=== PATIENT | female | born 1995 | race Two or more races ===

== ENCOUNTER 2020-02-14 10:43 | Outpatient (REF) | payer OTHER, SELFPAY ==
[2020-02-15 08:48] LABS: CT PCR NOT DETECTED (Not Detect.)
[2020-02-15 08:49] LABS: NG PCR NOT DETECTED (Not Detect.)
== END 2020-02-14 10:44 | disposition home or self-care (01) ==
LOC: HO.LNP 10:43
PROVIDERS: PCP Internal Medicine; Referring Provider Internal Medicine; Visit Provider Advanced Practice Midwife
DX: O34.219 Maternal care for unspecified type scar from previous cesarean delivery (principal); O99.211 Obesity complicating pregnancy, first trimester; E66.9 Obesity, unspecified; Z3A.13 13 weeks gestation of pregnancy
CPT/HCPCS: 87491; 87591

== ENCOUNTER 2020-03-10 16:17 | Emergency (ER) | payer OTHER, SELFPAY ==
[2020-03-10 17:14] VITALS: BP 135/81; PULSE 90; RESP 16; TEMP 36.7; O2SAT 99; BMI 41.5
--- NOTE | 2020-03-10 17:22 | US_ITS ---
EXAMINATION: US OB LIMITED CLINICAL INFORMATION: Pelvic pain, pressure. Cramping. 17 weeks . COMPARISON: Most recent pelvic ultrasound dated 02/03/2020. TECHNIQUE: Transabdominal images were obtained. FINDINGS: Single intrauterine gestation identified. Normal movement is identified. The heart rate is 160 bpm. The placenta is anterior with no evidence of placental abruption. The ovaries appear within normal limits. The kidneys are unremarkable without hydronephrosis or nephrolithiasis. US/US OB limited IMPRESSION: Single intrauterine gestation with a heart rate of 160 bpm. No evidence of placental detachment.
--- NOTE | 2020-03-10 17:53 | ED_ITS ---
HPI - Abdominal Pain General Chief Complaint: Abdominal Pain Stated Complaint: abd pain Time Seen by Provider: 03/10/20 17:08 Source: patient Mode of arrival: ambulatory History of Present Illness HPI narrative: 24-year-old female at 17 weeks gestation presenting to the ED complaining of lower abdominal cramping radiating to bilateral low back times today. Reports nausea/vomiting throughout . Denies fever, chills, dysuria / hematuria, vaginal bleeding or discharge MD elicited complaint: abdominal pain Related Data Home Medications Medication Instructions Recorded Confirmed vitamin 1 tab PO DAILY 02/14/20 no.76-iron,carbonyl 29 mg iron-folic acid 1 mg tablet Allergies Allergy/AdvReac Type Severity Reaction Status Date / Time No Known Allergies Allergy Verified 02/14/20 11:06 Review of Systems Review of Systems Constitutional: No Weight loss, No Fever, No Chills Cardiovascular: No Chest Pain, No SOB Respiratory: No Cough, No Sputum,No Dyspnea Gastrointestinal: +Nausea, +Vomiting, No Diarrhea, No Constipation, +Abdominal pain Genitourinary: No irregular bleeding, No Dysuria, No Urinary Frequency, No Hematuria, No Flank Pain, No Urinary Flow Changes, No Hesitancy Musculoskeletal: No joint pain, No Myalgias, No Joint Swelling Skin: No Skin Lesions, No rash Yes all other systems are reviewed and are negative Physical Exam Vital Signs: Vital Signs: Vital Signs Temp Pulse Resp BP Pulse Ox 03/10/20 19:47 98.1 F 79 16 109/66 99 03/10/20 17:14 98.1 F 90 16 135/81 99 Body Mass Index 41.5 Const: General: cooperative and healthy appearing Orientation/consciousness: patient oriented x3 Limitations: no limitations HENMT: Head: Yes normal to inspection Ears: hearing grossly normal bilaterally General nose exam: Normal external nose present Face and sinus: Yes normal facial exam Eyes: General: appearance normal, both eyes and all related structures EOM: EOMs intact bilaterally Neck: Neck: Yes normal visual inspection Resp: Effort & Inspection: normal respiratory effort GI: Inspection: Yes normal to inspection Palpation (GI): Soft to palpation, Tenderness to palpation present (GI) (lower abdomen > L lower/suprapubic region), no guarding and not rigid : General: Yes no CVA tenderness Back/Spine/Pelvis: Back: no CVA tenderness Skin: Rashes: no rashes Wounds: no wounds Neuro: General: patient oriented x3 Gait exam (Neuro): Normal gait present Extrem: General: Yes normal to inspection Course Course Course Narrative: -1857--labs unremarkable, HCG -- ultrasound showing single intrauterine gestation with heart rate 160. No evidence of placental detachment - UA with 40 ketones, not infected. Discussed with patient need for hydration at home labs/imaging results discussed.Worrisome signs and symptoms And strict return precautions doctor about. Including follow-up with OBGYN/ calling the morning. Patient verbalized understanding feel safe for discharge home MDM - Abdominal Pain MDM Narrative Medical decision making narrative: 24-year-old female at 17 weeks gestation presenting to the ED complaining of lower abdominal cramping radiating to bilateral low back x today. On exam VSS, NAD/ nontoxic appearing, abdomen soft with lower abdominal ttp. Concern for pain / related complication. low concern for ovarian torsion, appendicitis, or diverticulitis with pain being bilateral. Rule out infectious etiology including UTI. Low concern for renal stone/PID plan: Labs, UA, ultrasound, reassess Lab Data Result diagrams: 03/10/20 17:57 03/10/20 17:57 Labs: Lab Results 03/10/20 03/10/20 03/10/20 Range/Units 17:57 17:57 17:57 WBC 9.6 (4.8-10.8) X10*3/uL RBC 3.77 L (4.20-5.50) X10*6/uL Hgb 11.1 L (12.0-16.0) g/dl Hct 33.3 L (37-47) % MCV 88.3 (80-98) fL MCH 29.4 (27.0-33.0) pg MCHC 33.3 (31.0-35.0) g/dl RDW 15.3 (11.0-16.0) % Plt Count 229 (160-400) X10*3/uL MPV 10.9 (9.4-12.3) fL Immature Gran % (Auto) 0.4 (0.0-0.4) % Neut % (Auto) 75.3 H (45-73) % Lymph % (Auto) 14.6 L (20-40) % Taney % (Auto) 8.0 (2-11) % Eos % (Auto) 1.4 (0-4) % Baso % (Auto) 0.3 (0-2) % Lymph # (Auto) 1.4 (1.2-4.9) X10*3/uL Taney # (Auto) 0.8 (0.1-1.2) X10*3/uL Eos # (Auto) 0.1 (0.0-0.4) X10*3/uL Baso # (Auto) 0.0 (0.0-0.2) X10*3/uL Abs Immat Gran (auto) 0.04 H (0.00-0.03) X10*3/uL Absolute Neuts (auto) 7.2 (2.0-8.3) X10*3/uL Absolute Nucleated RBC 0.000 (0.0-0.012) X10*3/uL Nucleated RBC % (auto) 0.0 (0.0-0.2) /100WBC Hold Blue Top SEE NOTE Sodium 135 (135-145) mmol/L Potassium 4.0 (3.3-5.1) mmol/l Chloride 104 (96-108) mmol/L Carbon Dioxide 23 (22-29) mmol/L Anion Gap 12 (12-20) BUN 6 L (9-16) mg/dL Creatinine 0.64 (0.5-1.4) mg/dL Estim Creat Clear Calc 167.3 Estimated GFR > 60 Random Glucose 95 (60-115) mg/dL Calcium 8.3 L (8.4-10.2) mg/dL Total Bilirubin 0.5 (0.0-1.0) mg/dL Direct Bilirubin 0.2 (0.0-0.5) mg/dL AST 20 (5-31) U/L ALT 20 (0-31) U/L Alkaline Phosphatase 40 (39-117) U/L Total Protein 6.2 L (6.5-8.0) g/dL Albumin 3.5 (3.5-5.0) g/dL Lipase 34 (8-78) U/L Beta HCG, Quant 87253 mIU/mL Urine Color Urine Appearance Urine pH (5.0-8.0) Ur Specific [place] (1.005-1.025) Urine Protein (NEG-TRACE) MG/DL Urine Glucose (UA) (NEG) MG/DL Urine Ketones (NEG) MG/DL Urine Blood (NEG) Urine Nitrite (NEG) Ur Leukocyte Esterase (NEG) 03/10/20 Range/Units 20:06 WBC (4.8-10.8) X10*3/uL RBC (4.20-5.50) X10*6/uL Hgb (12.0-16.0) g/dl Hct (37-47) % MCV (80-98) fL MCH (27.0-33.0) pg MCHC (31.0-35.0) g/dl RDW (11.0-16.0) % Plt Count (160-400) X10*3/uL MPV (9.4-12.3) fL Immature Gran % (Auto) (0.0-0.4) % Neut % (Auto) (45-73) % Lymph % (Auto) (20-40) % Taney % (Auto) (2-11) % Eos % (Auto) (0-4) % Baso % (Auto) (0-2) % Lymph # (Auto) (1.2-4.9) X10*3/uL Taney # (Auto) (0.1-1.2) X10*3/uL Eos # (Auto) (0.0-0.4) X10*3/uL Baso # (Auto) (0.0-0.2) X10*3/uL Abs Immat Gran (auto) (0.00-0.03) X10*3/uL Absolute Neuts (auto) (2.0-8.3) X10*3/uL Absolute Nucleated RBC (0.0-0.012) X10*3/uL Nucleated RBC % (auto) (0.0-0.2) /100WBC Hold Blue Top Sodium (135-145) mmol/L Potassium (3.3-5.1) mmol/l Chloride (96-108) mmol/L Carbon Dioxide (22-29) mmol/L Anion Gap (12-20) BUN (9-16) mg/dL Creatinine (0.5-1.4) mg/dL Estim Creat Clear Calc Estimated GFR Random Glucose (60-115) mg/dL Calcium (8.4-10.2) mg/dL Total Bilirubin (0.0-1.0) mg/dL Direct Bilirubin (0.0-0.5) mg/dL AST (5-31) U/L ALT (0-31) U/L Alkaline Phosphatase (39-117) U/L Total Protein (6.5-8.0) g/dL Albumin (3.5-5.0) g/dL Lipase (8-78) U/L Beta HCG, Quant mIU/mL Urine Color YELLOW Urine Appearance CLEAR Urine pH 6.0 (5.0-8.0) Ur Specific [place] 1.020 (1.005-1.025) Urine Protein NEG (NEG-TRACE) MG/DL Urine Glucose (UA) NEG (NEG) MG/DL Urine Ketones 40 (NEG) MG/DL Urine Blood NEG (NEG) Urine Nitrite NEG (NEG) Ur Leukocyte Esterase NEG (NEG) Discharge Plan Discharge Clinical Impression: Lower abdominal pain Qualifiers: Weeks of gestation: 17 weeks Qualified Code(s): Z3A.17 - 17 weeks gestation of Patient Disposition: Home, Self-Care Instructions: Abdominal Pain in (ED) Additional Instructions: your blood work and ultrasound were reassuring today in the ED, your urine showed evidence of dehydration, make sure you are drinking plenty of fluids at home Call your OBGYN in the morning If pain persists or worsens, you develop nausea/vomiting, or fever return to the ED Referrals: ED Physician,Generic [Emergency Provider] - 2 days ( if not better) [facility] Past Medical History Attestation statement: The following information was validated with the patient. Source: old records reviewed and nursing notes reviewed Surgical History Hx of section Family History Family History Paternal Grandfather Stroke Paternal Grandmother HTN (hypertension) Maternal Grandfather HTN (hypertension) Diabetes mellitus Mother Uterine cancer Maternal Aunt Breast cancer Social History Social History Alcohol intake: never Smoking Status: Never smoker Use of substances other than those prescribed or required for medical reasons: No Advance Directives: No Advance Directives Information Provided: No Gender identity: female
[2020-03-10] MEDS: 0.9 % Sodium Chloride 1,000 ML 999 ML IVCONT (17:57)
[2020-03-10 18:03] LABS: MANUAL DIFF FLAG NO
[2020-03-10 18:04] LABS: Basophils Percent Auto 0.3 % (0-2); Eosinophils Absolute Auto 0.1 X10*3/uL (0.0-0.4); Eosinophils Percent Auto 1.4 % (0-4); Hematocrit 33.3 % (37-47); Hemoglobin 11.1 g/dl (12.0-16.0); Imm Gran Abs Auto 0.04 X10*3/uL (0.00-0.03); Imm Gran Pct Auto 0.4 % (0.0-0.4); Lymphocytes Absolute Auto 1.4 X10*3/uL (1.2-4.9); Lymphocytes Percent Auto 14.6 % (20-40); Mean Corpuscular HGB Conc 33.3 g/dl (31.0-35.0); Mean Corpuscular Hemoglobin 29.4 pg (27.0-33.0); Mean Corpuscular Volume 88.3 fL (80-98); Mean Platelet Volume 10.9 fL (9.4-12.3); Monocytes Absolute Auto 0.8 X10*3/uL (0.1-1.2); Neutrophils Absolute Auto 7.2 X10*3/uL (2.0-8.3); Neutrophils Percent Auto 75.3 % (45-73); Platelet Count 229 X10*3/uL (160-400); Red Blood Count 3.77 X10*6/uL (4.20-5.50); Red Cell Distribution Width 15.3 % (11.0-16.0); White Blood Count 9.6 X10*3/uL (4.8-10.8)
[2020-03-10 18:27] LABS: Alanine Aminotransferase 20 U/L (0-31); Albumin Level 3.5 g/dL (3.5-5.0); Alkaline Phosphatase 40 U/L (39-117); Anion Gap 12 (12-20); Aspartate Amino Transferase 20 U/L (5-31); Bilirubin Direct 0.2 mg/dL (0.0-0.5); Bilirubin Total 0.5 mg/dL (0.0-1.0); Blood Urea Nitrogen 6 mg/dL (9-16); Calcium 8.3 mg/dL (8.4-10.2); Carbon Dioxide 23 mmol/L (22-29); Chloride 104 mmol/L (96-108); Creatinine Clr Calc Pharmacy 167.3; Estimated Glomerular Filt Rate > 60; Glucose Random 95 mg/dL (60-115); Lipase 34 U/L (8-78); Sodium 135 mmol/L (135-145); Total Protein 6.2 g/dL (6.5-8.0)
[2020-03-10 18:54] LABS: HCG Quantitative 19971 mIU/mL
[2020-03-10 19:47] VITALS: BP 109/66; PULSE 79; RESP 16; TEMP 36.7; O2SAT 99
[2020-03-10 20:23] LABS: Glucose Urine UA NEG (NEG); Leukocyte Esterase Urine NEG (NEG); Nitrite Urine NEG (NEG); Urine Blood NEG (NEG); Urine Ketones 40 MG/DL (NEG); Urine Protein NEG (NEG-TRACE)
[2020-03-10 20:25] LABS: Appearance Urine CLEAR; Color Urine YELLOW
== END 2020-03-10 21:23 | disposition home or self-care (01) ==
PROVIDERS: Physician Assistant; Emergency Provider Internal Medicine; PCP Internal Medicine
DX: O26.92 Pregnancy related conditions, unspecified, second trimester (principal); R10.30 Lower abdominal pain, unspecified; Z3A.17 17 weeks gestation of pregnancy
CPT/HCPCS: 36415; 76815; 80048; 80076; 81003; 83690; 84702; 85025; 96360; 99284

== ENCOUNTER → 2020-03-13 08:42 | Outpatient (BNVA) | payer OTHER, SELFPAY | PROVIDERS: PCP Internal Medicine; Referring Provider Internal Medicine; Visit Provider Advanced Practice Midwife | DX: Z76.89 Persons encountering health services in other specified circumstances (principal) ==

== ENCOUNTER 2020-03-23 14:13 | Outpatient (REF) | payer OTHER, SELFPAY ==
--- NOTE | 2020-03-23 14:16 | US_ITS ---
EXAMINATION: US OBSTETRICAL CLINICAL INFORMATION: 24-year-old at 19.2 weeks of gestation Suspected anomaly COMPARISON: 03/10/2020 TECHNIQUE: Real-time transabdominal ultrasound was performed using C1-5 megahertz transducer. FINDINGS: A single, active, fetus is seen in vertex presentation. The placenta is anterior without previa, and the amniotic fluid volume is wnl. MEASUREMENTS: 1. Biparietal Diameter: 4.6 cm; 20.0 wks 2. Occipital Frontal Diameter: 5.8 cm 3. Head Circumference: 17.23 cm; 19.6 wks 4. Abdominal Circumference: 15.4 cm; 20.5 wks 5. Femur Length: 3.15 cm; 19.6 wks 6. Humerus Length: 3.2 cm; 20.5 wks 7. Tibia Length: 2.62 cm; 19.3 wks 8. Ulna Length: 2.8 cm; 20.2 wks 9. Lateral ventricle: 0.72 cm 10. Cerebellum: 1.95 cm; 20.0 wks 11. Cisterna Magna: 0.37 cm 12. Nuchal Fold: n/a mm 13. Heart Rate: 163 beats per minute Rt ovary: normal Lt ovary: normal Cervical length 5.7 cm on T/A. GESTATIONAL AGE: 1. Established GA: 19.2 wks 2. GA from [facility]: 20.1 wks ESTIMATED DATE OF DELIVERY: 1. Established DALLIN: 08/15/2020 2. DALLIN from [facility]: 08/09/2020 ANATOMY: The visualized anatomy includes but not limited to: 1. Cranium: Normal 2. Intracranial anatomy: cavum septum pellucidi, lateral ventricles, choroid plexus, cerebellum, posterior fossa, third and fourth ventricles. 3. face: orbits, lip/palate, profile, nasal bone 4. Heart: four-chamber view of the heart, ventricular septum, foramen ovale, pulmonary vein, left and right outflow tracts, three-vessel view, 3 vessel trachea view, aortic and ductal arches, situs.. 5. Diaphragm: Normal 6. Abdominal wall: Normal 7. Cord Insertion: Normal 8. Spine: Cervical, thoracic, lumbar, sacral. 9. Stomach: Normal size and shape 10. Right Kidney: Normal 11. Left Kidney: Normal 12. 3 vessel cord: Normal 13. Upper extremity: Open hands, fifth digit. 14. Lower extremity: Tibia, fibula, bilateral feet. 15. Bladder: Normal 16. Genitalia: Female, patient aware US/US OB /maternal detail IMPRESSION: 1. Single, living, intrauterine with appropriate biometry. 2. Normal survey DISCUSSION: I reviewed today's ultrasound findings. We discussed the limitations of ultrasound in diagnosing aneuploidy and other congenital abnormalities. I reviewed the differences between screening test and diagnostic test. Amniocentesis was discussed and declined. She was informed that the baseline incidence of congenital abnormalities is approximately 3-5%. Not all these conditions are diagnosable in utero. RECOMMENDATIONS: 1. No further ultrasound has been scheduled today. Thank you for allowing me to participate in her care. Visiting time 25 minutes. Majority of this visit was spent reviewing and discussing her care.
== END 2020-03-23 14:14 | disposition home or self-care (01) ==
LOC: HO.US 14:13
PROVIDERS: Visit Provider Advanced Practice Midwife
DX: Z34.80 Encounter for supervision of other normal pregnancy, unspecified trimester (principal); Z36.3 Encounter for antenatal screening for malformations
CPT/HCPCS: 76811

== ENCOUNTER → 2020-04-10 10:24 | Outpatient (BNVA) | payer OTHER, SELFPAY | PROVIDERS: Visit Provider Advanced Practice Midwife | DX: Z76.89 Persons encountering health services in other specified circumstances (principal) ==

== ENCOUNTER → 2020-05-08 11:36 | Outpatient (BNVA) | payer OTHER, SELFPAY | PROVIDERS: PCP Internal Medicine; Visit Provider Obstetrics & Gynecology | DX: Z76.89 Persons encountering health services in other specified circumstances (principal) | CPT/HCPCS: 99212 ==

== ENCOUNTER 2020-05-29 14:22 | Outpatient (REF) | payer OTHER, SELFPAY | END 2020-05-29 14:23 | disposition home or self-care (01) | LOC: HO.LAB 14:22 | PROVIDERS: PCP Internal Medicine; Visit Provider Obstetrics & Gynecology | DX: O12.10 Gestational proteinuria, unspecified trimester (principal); O99.210 Obesity complicating pregnancy, unspecified trimester | CPT/HCPCS: 81003; 87086; 99212 ==

== ENCOUNTER 2020-05-30 15:20 | Outpatient (REF) | payer OTHER, SELFPAY ==
[2020-05-30 17:34] LABS: MANUAL DIFF FLAG NO
[2020-05-30 17:47] LABS: Basophils Percent Auto 0.2 % (0-2); Eosinophils Absolute Auto 0.3 X10*3/uL (0.0-0.4); Eosinophils Percent Auto 3.5 % (0-4); Hematocrit 33.9 % (37-47); Hemoglobin 10.9 g/dl (12.0-16.0); Imm Gran Abs Auto 0.05 X10*3/uL (0.00-0.03); Imm Gran Pct Auto 0.6 % (0.0-0.4); Lymphocytes Absolute Auto 1.6 X10*3/uL (1.2-4.9); Lymphocytes Percent Auto 17.4 % (20-40); Mean Corpuscular HGB Conc 32.2 g/dl (31.0-35.0); Mean Corpuscular Hemoglobin 29.5 pg (27.0-33.0); Mean Corpuscular Volume 91.6 fL (80-98); Mean Platelet Volume 11.6 fL (9.4-12.3); Monocytes Absolute Auto 0.8 X10*3/uL (0.1-1.2); Monocytes Percent Auto 9.3 % (2-11); Neutrophils Absolute Auto 6.1 X10*3/uL (2.0-8.3); Platelet Count 214 X10*3/uL (160-400); Red Cell Distribution Width 14.3 % (11.0-16.0); White Blood Count 8.9 X10*3/uL (4.8-10.8)
[2020-05-30 18:00] LABS: Glucose 1 Hour PP 50gm Dose 109 mg/dL (60-140)
[2020-05-30 18:23] LABS: Syphilis Screen Nonreactive (Nonreactive)
[2020-06-01 18:13] LABS: C. trachomatis RNA TMA NOT DETECTED (NOT DETECTED); N. gonorrhoeae RNA TMA NOT DETECTED (NOT DETECTED)
== END 2020-05-30 15:21 | disposition home or self-care (01) ==
LOC: HO.LAB 15:20
PROVIDERS: PCP Internal Medicine; Visit Provider Obstetrics & Gynecology
DX: Z34.83 Encounter for supervision of other normal pregnancy, third trimester (principal)
CPT/HCPCS: 36415; 85025; 86780; 87491; 87591

== ENCOUNTER → 2020-06-13 14:16 | Outpatient (BNVA) | payer OTHER, SELFPAY | PROVIDERS: PCP Internal Medicine; Visit Provider Obstetrics & Gynecology | DX: Z34.80 Encounter for supervision of other normal pregnancy, unspecified trimester (principal) | CPT/HCPCS: 81003; 99212 ==

== ENCOUNTER 2020-06-20 12:55 | Outpatient (REF) | payer OTHER, SELFPAY ==
--- NOTE | ~2020-06-20 | US_ITS ---
EXAMINATION: US OBSTETRICAL FOLLOW UP WITH BIOPHYSICAL PROFILE CLINICAL INFORMATION: Obesity complicating . COMPARISON: Previous exam March 2020 TECHNIQUE: Real time transabdominal imaging with color and M-mode Doppler. POSITION: Cephalic PLACENTA: Anterior. Grade 2. AMNIOTIC FLUID INDEX: 13.3 cm MEASUREMENTS: The initial dating ultrasound dated provided an estimated date of delivery of 08/15/2020. This would project today to a of 32 weeks 0 days. biometric measurements are as follows: Biparietal Diameter: 8.2 cm (33 weeks 1 day) Occipital Frontal Diameter: 11.2 cm (37 weeks 3 days) Head Circumference: 30.6 cm (34 weeks 1 day) Abdominal Circumference: 30.4 cm (34 weeks 3 days) Femur Length: 6.3 cm (32 weeks 4 days) The standard deviation for the above measurements is +/- 3 weeks. ESTIMATED WEIGHT: The EFW is 2.255 grams +/- 330 grams (5 lbs 0 oz +/- 12 oz). This is at the 89th percentile. BIOPHYSICAL PROFILE: Biophysical profile is performed over 30 minutes with assessment of breathing, gross body movement, tone, and qualitative amniotic fluid volume. Each matrix is scored 0 or 2, depending if the metric is present. Maximum total score possible is 8. Motion: 2 Tone: 2 Breathin Amniotic Fluid: 2 Total score: HR: 147 bpm US/US OB follow up IMPRESSION: 1. Single intrauterine gestation in cephalic position with anterior placenta. 2. EFW: 5 lbs. 0 oz. which is 89th percentile for patient's gestational age. 3. SWATHI: 13.3 cm. 4. BPP score: 8 (scale 0-8).
== END 2020-06-20 12:56 | disposition home or self-care (01) ==
LOC: HO.US 12:55
PROVIDERS: PCP Internal Medicine; Visit Provider Obstetrics & Gynecology
DX: O99.213 Obesity complicating pregnancy, third trimester (principal)
CPT/HCPCS: 76816

== ENCOUNTER → 2020-06-26 13:35 | Outpatient (BNVA) | payer OTHER, SELFPAY | PROVIDERS: PCP Internal Medicine; Visit Provider Advanced Practice Midwife | DX: O99.210 Obesity complicating pregnancy, unspecified trimester (principal) | CPT/HCPCS: 81003; 90471; 90715; 99212 ==

== ENCOUNTER → 2020-07-12 13:06 | Outpatient (BNVA) | payer OTHER, SELFPAY | PROVIDERS: PCP Internal Medicine; Visit Provider Advanced Practice Midwife | DX: Z34.93 Encounter for supervision of normal pregnancy, unspecified, third trimester (principal); Z3A.35 35 weeks gestation of pregnancy | CPT/HCPCS: 81003; 99212 ==

== ENCOUNTER 2020-07-18 14:52 | Outpatient (REF) | payer OTHER, SELFPAY ==
[2020-07-19 09:57] LABS: CT PCR NOT DETECTED (Not Detect.); NG PCR NOT DETECTED (Not Detect.)
== END 2020-07-18 14:53 | disposition home or self-care (01) ==
LOC: HO.LAB 14:52
PROVIDERS: PCP Internal Medicine; Visit Provider Advanced Practice Midwife
DX: O34.219 Maternal care for unspecified type scar from previous cesarean delivery (principal); O99.213 Obesity complicating pregnancy, third trimester; E66.9 Obesity, unspecified; Z3A.36 36 weeks gestation of pregnancy
CPT/HCPCS: 81003; 87081; 87147; 87491; 87591; 99212

== ENCOUNTER 2020-07-20 12:28 | Outpatient (REF) | payer OTHER, SELFPAY ==
--- NOTE | ~2020-07-20 | US_ITS ---
EXAMINATION: OBSTETRICAL ULTRASOUND, Follow up HISTORY: 24-year-old at the 36.2 weeks of gestation Size date discrepancy High BMI COMPARISON: 06/20/2020 TECHNIQUE: Real time transabdominal imaging with color and M-mode Doppler. PRESENTATION: Vertex PLACENTA LOCATION: Anterior without previa AMNIOTIC FLUID: SWATHI 18.5 cm MEASUREMENTS: 1. Biparietal Diameter: 9.1 cm; 37.1 wks 2. Head Circumference: 33.3 cm; 38.0 wks 3. Abdominal Circumference: 34.72 cm; 38.5 wks 4. Femur Length: 7.0 cm; 35.6 wks 5. Heart Rate: 147 beats per minute WEIGHT: EFW: 3290 grams (7 lbs 4 oz) -- 87 %. BIOPHYSICAL PROFILE: Motion: 2 Tone: 2 Breathin Amniotic Fluid: 2 Total score: 8/8 GESTATIONAL AGE: 1. Established GA: 36.2 wks 2. GA from AUA: 37.3 wks ESTIMATED DATE OF DELIVERY: 1. Established DALLIN: 08/15/2020 2. DALLIN from AUA: 08/07/2020 US/US OB follow up IMPRESSION: 1. A single active fetus is in vertex presentation 2. Size equals dates, EFW corresponds to 87th percentile. Compared to prior exam, this represents appropriate interval growth. 3. Reassuring BPP with normal amniotic fluid index. Thank you very much for this referral. This note was generated with a voice recognition program. Please excuse any errors which may have been overlooked during my review of this note. Sometimes these errors may affect the content or meaning of a given sentence.
== END 2020-07-20 12:29 | disposition home or self-care (01) ==
LOC: HO.US 12:28
PROVIDERS: Visit Provider Advanced Practice Midwife
DX: O99.210 Obesity complicating pregnancy, unspecified trimester (principal)
CPT/HCPCS: 76816

== ENCOUNTER → 2020-07-25 14:15 | Outpatient (BNVA) | payer OTHER, SELFPAY | PROVIDERS: PCP Internal Medicine; Visit Provider Advanced Practice Midwife | DX: O99.820 Streptococcus B carrier state complicating pregnancy (principal); Z3A.37 37 weeks gestation of pregnancy | CPT/HCPCS: 81003; 99212 ==

== ENCOUNTER → 2020-08-02 14:48 | Outpatient (BNVA) | payer OTHER, SELFPAY | PROVIDERS: PCP Internal Medicine; Visit Provider Advanced Practice Midwife | DX: Z34.93 Encounter for supervision of normal pregnancy, unspecified, third trimester (principal); Z3A.38 38 weeks gestation of pregnancy | CPT/HCPCS: 81003; 99212 ==

== ENCOUNTER → 2020-08-22 14:50 | Outpatient (BNVA) | payer OTHER, SELFPAY | PROVIDERS: PCP Internal Medicine; Visit Provider Advanced Practice Midwife | DX: Z39.2 Encounter for routine postpartum follow-up (principal) | CPT/HCPCS: 99212 ==

== ENCOUNTER → 2020-09-05 11:18 | Outpatient (BNVA) | payer OTHER, SELFPAY | PROVIDERS: Visit Provider Obstetrics & Gynecology ==

== ENCOUNTER → 2020-09-21 11:16 | Outpatient (BNVA) | payer OTHER, SELFPAY | PROVIDERS: Visit Provider Obstetrics & Gynecology | DX: Z39.2 Encounter for routine postpartum follow-up (principal); Z30.09 Encounter for other general counseling and advice on contraception | CPT/HCPCS: 99212 ==

== ENCOUNTER 2020-11-01 07:20 | Day surgery (SDC) | payer OTHER, SELFPAY ==
[2020-10-25 14:52] VITALS: BMI 38.2
--- NOTE | 2020-10-31 08:20 | P.CONAN_ITS ---
HPI - Anesthesia Eval Consult details Narrative: 25yo F for Bilateral Tubal Ligation Laparoscopic PMFSH Active Problems Active Problems: All Active Problems (Updated 10/25/20 @ 14:51 by Kristel Oh) Supervision of other normal (Acute) Depression screen (Acute) Supervision of normal in third trimester (Acute) Previous section complicating , antepartum condition or complication (Acute) Group B streptococcal carriage complicating (Acute) care following delivery (Acute) Unwanted fertility (Acute) Past Medical History Medical History No significant past medical history Family History Family History Paternal Grandfather Stroke Paternal Grandmother HTN (hypertension) Maternal Grandfather HTN (hypertension) Diabetes mellitus Mother Uterine cancer Maternal Aunt Breast cancer Surgical History Surgical History (Updated 10/25/20 @ 14:51 by Kristel Oh) Hx of section Social History Social History Are you a primary intensive care anaesthetist to a significant other at home: No Do you presently have visiting nurse or other home services: No Alcohol intake: never Patient Tobacco Use Status: Never used Tobacco Gender identity: female Meds Allergies Allergy/AdvReac Type Severity Reaction Status Date / Time No Known Allergies Allergy Verified 10/25/20 14:51 Exam Exam Date and Time: October 31, 2020 0820 Height,Weight and Vital Signs: Height 5 ft 5 in Weight 104.326 kg Assessment and Plan Assessment Anesthesia Assessment: Chart Reviewed
[2020-11-01] VITALS (13 sets, daily range): BP systolic 107–133; BP diastolic 55–79; PULSE 65–83; RESP 16–18; TEMP 36.2–36.5; O2SAT 94–98
--- NOTE | 2020-11-01 07:40 | HO.ANESPROP2 ---
[facility] Active Problems Active Problems: All Active Problems (Updated 10/25/20 @ 14:51 by Kristel Oh) Supervision of other normal (Acute) Depression screen (Acute) Supervision of normal in third trimester (Acute) Previous section complicating , antepartum condition or complication (Acute) Group B streptococcal carriage complicating (Acute) care following delivery (Acute) Unwanted fertility (Acute) Past Medical History Medical History No significant past medical history Family History Family History Paternal Grandfather Stroke Paternal Grandmother HTN (hypertension) Maternal Grandfather HTN (hypertension) Diabetes mellitus Mother Uterine cancer Maternal Aunt Breast cancer Surgical History Surgical History (Updated 10/25/20 @ 14:51 by Kristel Oh) Hx of section Social History Social History Are you a primary out of school hours care worker to a significant other at home: No Do you presently have visiting nurse or other home services: No Alcohol intake: never Patient Tobacco Use Status: Never used Tobacco Use of substances other than those prescribed or required for medical reasons: No Have you been hit, kicked, punched, or otherwise hurt by someone within the past year? If so, by whom?: No Are you DNR?: No Advance Directives: No Advance Directives Information Provided: No Advance Directives on File: No Recently lost weight without trying: No Eating poorly because of decreased appetite: No Nutrition Risks: No Nutritional Risk Patient : No : Yes Gender identity: female Meds Allergies Allergy/AdvReac Type Severity Reaction Status Date / Time No Known Allergies Allergy Verified 10/25/20 14:51 Active Medications: Current Medications Generic Name Dose Route Start Last Admin Trade Name Freq PRN Reason Stop Dose Admin Lactated Ringer's 1,000 mls @ 100 mls/hr 11/01/20 07:45 Lr IVCONT .Q10H CANDACE Exam Exam Date and Time: November 01, 2020 0740 Height,Weight and Vital Signs: Height 5 ft 5 in Weight 104.326 kg Airway Mallampati Class: II TM Dist: >3cm Neck ROM: Full Heart: RRR Lungs: tA
[2020-11-01 07:52] LABS: UPreg QC Valid YES; Urine Pregnancy NEGATIVE (NEGATIVE)
[2020-11-01] MEDS: Acetaminophen 325 MG TABLET 650 MG PO (07:55)
[2020-11-01] MEDS: Lactated Ringers 1,000 ML 100 ML IVCONT (08:26)
--- NOTE | 2020-11-01 08:49 | MHC.SHP ---
Pre-Procedural Eval Section A Date of Service: 11/01/20 Section B Chief Complaint: Unwanted Fertility Details of Present Illness: Ms. Harrison is a 25yo who has completed her family planning and desires a permanent contraception in the form of female sterilization. She has been previously counseled about sterilization by myself and presents today for scheduled laparoscopic bilateral tubal ligation. She has no complaints at this time and reports feeling healthy and well today. Relevant Family History (Specify if Yes): No Relevant Social History: None Present Medications: None Medical History: No relevant PMH History of Previous Operations: Relevant previous surgery/procedure and date(s) (history of two prior deliveries) Allergies: Allergies Allergy/AdvReac Type Severity Reaction Status Date / Time No Known Allergies Allergy Verified 10/25/20 14:51 Plan I have reviewed the history and physical and performed a pertinent physical examination on my patient. No changes have occurred unless specified.
--- NOTE | 2020-11-01 08:52 | P.OP_ITS ---
Operative Note Operative Note Date of Service: 11/01/20 Narrative: Pre-Procedure Diagnosis: unwanted fertility Post-Procedure Diagnosis: unwanted fertility Procedures performed: Laparoscopic bilateral tubal ligation with cautery Appraisal Analyst: none Complications: none Specimens: none Disposition: Pacu Ms. Harrison is a 25 year old who has completed her family planning and desires a permanent form of sterilization. Surgical Risks: The patient was informed of the risks and benefits of the procedure. Risks included but were not limited to bleeding, infection, injury to the vulva, vagina, or cervix, and uterine perforation. The patient was counseled on the risk of sterilization failure being about 1% on average. The patient was informed that in the event a occurs, the risk of ectopic is increased. The patient expressed understanding of the risks involved, all questions were answered, and the patient consented to the procedure. The patient had valid sterilization consent at the time of the procedure. The patient was taken to the operating room where a time out was performed to confirm correct patient and correct procedure. General anesthesia was established. The patient was then positioned on the operating table in the dorsal lithotomy position with the legs supported using stirrups. All pressure points were padded and a Adalgisa hugger was placed to maintain control of core body temperature. The patient was then prepped and draped in the usual sterile fashion. A red rubber catheter was inserted and 100mL urine obtained. A sponge stick was placed in the vagina for uterine manipulation. Attention was turned to the abdomen where a 5mm horizontal infraumbilical incision was made. The 5mm trocar was attempted to be introduced under direct visualization using the laparoscopy within the sleeve of the trocar; however, the trocar was not long enough to penetrate the peritoneum. The decision was made to enter with the Morillo. The 5mm incision was extended bilaterally for introduction of the Morillo trocar. The fascia was identified, grasped with [facility] her clamps and tented up, and incised with resendiz scissors. The peritoneum was entered bluntly with the surgeon's finger. A curved S retractor was placed above the surgeon's finger and the Morillo trocar then introduced along the S retractor. After intra-abdominal placement had been confirmed, the trocar was removed leaving the sleeve in place. The camera was introduced and pneumoperitoneum was established using carbon dioxide. Inspection of the abdominal cavity showed no gross abnormalities and there was no evidence of injury to the bowel, bladder, or vasculature. Attention was turned to the pelvis. The patient was placed into Trendelenburg position. The fallopian tubes and ovaries were visualized bilaterally. There were no abnormalities noted. A small incision was made in the midline appro ximately 2cm above the pubic symphysis, in the prior incision. A 5mm trocar was introduced through this incision under direct visualization with the laparoscope. The fallopian tubes were inspected bilaterally and the fimbriated ends of the fallopian tube were visualized bilaterally. The right fallopian tube and mesosalpinx were grasped and cauterized using Bipolar electrocautery with the Ligasure device. This was done with approximately three avila starting medially about 1cm from the cornua and working laterally. Good cautery was confirmed. Attention was then turned to the contralateral fallopian tube and mesosalpinx which was grasped about 1cm from the cornua and cauterized with three avila moving laterally with each cauterization. Good fulguration of both tubes was then confirmed. The pneumoperitoneum was then evacuated. The laparoscope was removed and the trocar sleeves were removed. The fascia was closed with 0-Vicryl in two interrupted sutures. The skin incisions were closed each with a single interrupted 3-0 Vicryl suture and Dermabond was applied. Good hemostasis was confirmed. The sponge stick was removed from the vagina. The patient was transferred to the recovery room in stable condition. All needle, sponge, and instrument counts were noted to be correct x2 at the end of the procedure.
--- NOTE | 2020-11-01 09:06 | HO.POSTANES ---
Post Anesthesia Evaluation Post Anesthesia Evaluation Vital Signs: Vital Signs Temp Pulse Resp BP Pulse Ox 11/01/20 07:46 97.7 F 75 16 128/79 96 Anesthesia: General Mental Status: Awake Pain Control: Satisfactory Nausea/Vomiting: None Hydration: Adequate Anesthesia-Related Issues: No Anes. Related Issues
[2020-11-01] MEDS: fentaNYL citrate/PF 100 MCG/2 ML VIAL 25 MCG IVPUSH ×4 (10:34→10:49)
[2020-11-01] MEDS: oxyCODONE HCl Immed Release 5 MG TABLET PO (10:50)
== END 2020-11-01 12:03 | disposition home or self-care (01) ==
LOC: HO.SSS 07:20
PROVIDERS: Nurse Practitioner; PCP Internal Medicine; Visit Provider Obstetrics & Gynecology
PROC: (CPT 58670; principal; 2020-11-01 09:00)
DX: Z30.2 Encounter for sterilization (principal)
CPT/HCPCS: 58670; 81025; J1100; J1170; J1885; J2250; J2405; J3010

== ENCOUNTER → 2020-11-19 10:55 | Outpatient (BNVA) | payer OTHER, SELFPAY | PROVIDERS: Visit Provider Obstetrics & Gynecology ==

== ENCOUNTER 2021-04-25 13:08 | Outpatient (REF) | payer OTHER, SELFPAY ==
[2021-04-26 14:30] LABS: CT PCR NOT DETECTED (Not Detect.); NG PCR NOT DETECTED (Not Detect.)
[2021-04-28 09:51] LABS: BV Int Neg Control Negative (Negative); BV Int Pos Control Positive (Positive)
== END 2021-04-25 13:09 | disposition home or self-care (01) ==
LOC: HO.LAB 13:08
PROVIDERS: PCP Internal Medicine; Visit Provider Advanced Practice Midwife
DX: Z01.419 Encounter for gynecological examination (general) (routine) without abnormal findings (principal); O91.02 Infection of nipple associated with the puerperium; B37.89 Other sites of candidiasis; E66.01 Morbid (severe) obesity due to excess calories; F17.210 Nicotine dependence, cigarettes, uncomplicated; Z20.2 Contact with and (suspected) exposure to infections with a predominantly sexual mode of transmission; Z68.41 Body mass index [BMI] 40.0-44.9, adult
CPT/HCPCS: 87480; 87491; 87510; 87591; 87660

== ENCOUNTER 2022-02-24 08:21 | Outpatient (REF) | payer OTHER, SELFPAY ==
[2022-02-24 08:36] LABS: MANUAL DIFF FLAG NO
[2022-02-24 09:01] LABS: Basophils Percent Auto 0.5 % (0-2); Eosinophils Absolute Auto 0.2 X10*3/uL (0.0-0.4); Eosinophils Percent Auto 2.7 % (0-4); Hematocrit 37.7 % (37.0-47.0); Hemoglobin 12.2 g/dl (12.0-16.0); Imm Gran Abs Auto 0.02 X10*3/uL (0.00-0.03); Imm Gran Pct Auto 0.3 % (0.0-0.4); Mean Corpuscular HGB Conc 32.4 g/dl (31.0-35.0); Mean Corpuscular Hemoglobin 27.1 pg (27.0-33.0); Mean Corpuscular Volume 83.8 fL (80.0-98.0); Mean Platelet Volume 10.8 fL (9.4-12.3); Monocytes Absolute Auto 0.6 X10*3/uL (0.1-1.2); Monocytes Percent Auto 8.5 % (2-11); Neutrophils Absolute Auto 4.6 x10*3/uL (2.0-8.3); Platelet Count 268 X10*3/uL (160-400); Red Cell Distribution Width 13.9 % (11.0-16.0); White Blood Count 7.5 X10*3/uL (4.8-10.8)
[2022-02-24 09:40] LABS: Alanine Aminotransferase 14 U/L (0-31); Albumin Level 4.1 g/dL (3.5-5.0); Alkaline Phosphatase 44 U/L (39-117); Anion Gap 19 (12-20); Aspartate Amino Transferase 18 U/L (5-31); Bilirubin Total 0.9 mg/dL (0.0-1.0); Blood Urea Nitrogen 12 mg/dL (9-16); Calcium 9.2 mg/dL (8.4-10.2); Carbon Dioxide 21 mmol/L (22-29); Chloride 104 mmol/L (96-108); Cholesterol 124 mg/dL; Estimated Glomerular Filt Rate > 60; Glucose Fasting 111 mg/dL (60-99); HDL Cholesterol 37 mg/dL; LDL Cholesterol Calculated 61 mg/dl; Potassium 4.5 mmol/L (3.3-5.1); Sodium 139 mmol/L (135-145); Total Protein 7.1 g/dL (6.5-8.0); Triglycerides 134 mg/dL
[2022-02-24 09:53] LABS: TSH reflex Free T4 (Prenatal) 3.75 uIU/mL (0.32-4.0)
[2022-02-24 11:02] LABS: Free T4 (Free Thyroxine) 0.84 ng/dL (0.71-1.85)
== END 2022-02-24 08:22 | disposition home or self-care (01) ==
LOC: HO.LAB 08:21
PROVIDERS: PCP Internal Medicine; Visit Provider Internal Medicine
DX: D64.9 Anemia, unspecified (principal); E66.01 Morbid (severe) obesity due to excess calories; E78.5 Hyperlipidemia, unspecified
CPT/HCPCS: 36415; 80053; 80061; 84439; 85025

== ENCOUNTER 2022-12-12 09:06 | Outpatient (AMB) | payer OTHER, SELFPAY ==
[2022-12-12 09:14] VITALS: BP 110/78; PULSE 80; O2SAT 98; BMI 45.9
--- NOTE | 2022-12-12 09:14 | A.OFFPC_ITS ---
Vital Signs 12/12/22 09:14 Height 5 ft 5 in Weight 276 lb BMI 45.9 BP 110/78 Blood Pressure Location Lt brachial Position Sitting Pulse 80 Pulse Source Pulse Oximeter Temp Source Skin Pulse Oximetry (%) 98 Oxygen Delivery Method Room Air Intake Visit Reasons: Rash on arm & breast Intake Note: pt states rash on right breast that spread through out body [id number], pt also states ithcing Knock Up Assembler Required: No Allergies No Known Allergies Allergy (Verified 12/12/22 09:14) Tobacco use date assessed: 12/12/22 HPI HPI Comments History of Present Illness Details 27-year-old female past medical history significant for obesity. Patient of Dr. Snider presents to for a skin rash. Patient reports has started with the right breast rash 2 months ago that has spread to other parts of her body. Patient states rash on right breast and turned into [place], patient used OTC fungal cream went away but returned. Patient has puritic spots to bilateral breast, abd and left arm. Patient denies any creams, lotions, soaps or detergents. Patient denies working in the yard. Patient reports she still currently breast-feeding her to have year old daughter few times daily. [facility] Medical History Morbid obesity No significant past medical history Surgical History Hx of section Tubal ligation status Family History Paternal Grandfather Stroke Paternal Grandmother HTN (hypertension) Maternal Grandfather HTN (hypertension) Diabetes mellitus Mother Uterine cancer Impaired glucose tolerance Maternal Aunt Breast cancer Social History (Updated 04/10/22 @ 17:44 by Ashanti Levine MD) Housing: Apartment Are you a primary care specialist to a significant other at home: No Do you presently have visiting nurse or other home services: No Alcohol intake: never Patient Tobacco Use Status: Former Tobacco user Tobacco use type: Cigarette Cigarettes Per Day: 4 e-Cigarette/Vaping Use: Never Used Second Hand Smoke Exposure: No service: No Current occupational status: unemployed Gender identity: Female Cognitive needs: No Hearing needs: No Vision needs: No Female Reproductive History Menstrual Age of Menarche: 10 Questionnaire Thrive Questionnaire Date Thrive assessed: 04/10/22 AUDIT C Alcohol Use Questionnaire (AUDIT-C) 1. How often do you have a drink containing alcohol?: Never Total Score: 0 ZOË-7 AMB Questionnaire ZOË-7 Date ZOË - 7 assessed: 04/10/22 Source: Developed by Drs. Jose Watts, Kaylin Macias, Isaiah Parra and colleagues, with an educational bina from [employer]. Review of Systems Const Denies chills, Denies fatigue, Denies fever(s) and Denies poor appetite Eyes Denies no additional complaints ENT Reports Normal hearing present Card Denies chest pain, Denies syncope, Denies rapid heart rate and Denies dyspnea Resp Denies cough and Denies dyspnea GI Denies change in stool character, Denies constipation, Denies diarrhea, Denies nausea and Denies vomiting Denies urinary frequency, Denies dysuria and Denies urinary urgency Skin/Breast Details: bilateral breast rash spread to spot on abdomen and left arm. Neuro Reports Normal hearing present, Denies confusion and Denies syncope Psych Denies confusion Endo Denies fatigue Physical exam (Primary Care) Vital Signs: Last Vital Signs Pulse 80 12/12/22 09:14 BP 110/78 12/12/22 09:14 Pulse Ox 98 12/12/22 09:14 Oxygen Delivery Method Room Air 12/12/22 09:14 BMI result Body Mass Index 45.9 Tobacco/Smoking Status: Tobacco use Status Tobacco use date assessed 12/12/22 12/12/22 09:19 Patient Tobacco Use Status Former Tobacco user 12/12/22 09:19 Tobacco use type Cigarette 12/12/22 09:19 e-Cigarette/Vaping Use Never Used 12/12/22 09:19 Thrive Assessment: Date of Thrive Assessment Date Thrive assessed 04/10/22 12/12/22 09:19 Const General: No confusion Orientation/consciousness: No confusion HENMT Head: Yes normocephalic and Yes atraumatic Eyes Conjunctivae: conjunctivae normal Chest Chest palpation & inspection: normal inspection of the chest Resp Effort & Inspection: normal respiratory effort Auscultation: clear to auscultation bilaterally, no crackles, no rhonchi and no wheezes Cardio Rate: regular rate Rhythm: regular rhythm Heart sounds: S1 normal heart sound present and S2 normal heart sound present GI Inspection: Yes normal to inspection Skin Rashes: other (Pruritic spots noted to bilateral breasts, abdomen and left arm above elbow) Neuro General: No confusion Cranial nerves: Yes Normal hearing present Extrem General: No edema Assessment and Plan Assessment & Plan (1) Skin rash: Code(s): R21 - Rash and other nonspecific skin eruption Plan: Will send triamcinolone cream to apply b.i.d. to rash. Patient advised that triamcinolone cream is okay to use short-term while . Given patient has pruritic spots to bilateral breast patient was advised to not placed steroid cream on her nipple directly and also advised to ensure she thoroughly removes cream prior to breast feeding her daughter to prevent her daughter from ingesting it. Patient verbalizes understanding and agreeable to plan of care. Referral placed to Dermatology. Follow-up in 1 month Plan Follow up in 1 month. Medications: New triamcinolone acetonide 0.1% 1 appl topical BID 15 grams 0RF R21 - Rash and other nonspecific skin eruption Coding Level of Care Code Est Pt Level 3 (00280) Diagnoses Skin rash R21
== END 2022-12-12 09:36 | disposition home or self-care (01) ==
PROVIDERS: PCP Internal Medicine; Visit Provider Nurse Practitioner Family
DX: R21 Rash and other nonspecific skin eruption (principal)
CPT/HCPCS: 99213

== ENCOUNTER 2022-12-18 10:06 | Outpatient (REF) | payer OTHER, SELFPAY ==
[2022-12-19 11:50] LABS: BV Int Neg Control Negative (Negative); BV Int Pos Control Positive (Positive)
[2022-12-23 05:09] LABS: HPV mRNA E6/E7 rflx Not Detected (Not Detected)
== END 2022-12-18 10:07 | disposition home or self-care (01) ==
LOC: HO.LNP 10:06
PROVIDERS: PCP Internal Medicine; Visit Provider Advanced Practice Midwife
DX: Z01.419 Encounter for gynecological examination (general) (routine) without abnormal findings (principal); Z11.51 Encounter for screening for human papillomavirus (HPV); N92.0 Excessive and frequent menstruation with regular cycle
CPT/HCPCS: 87480; 87510; 87624; 87660; 88142

== ENCOUNTER 2022-12-18 10:06 | Outpatient (AMB) | payer OTHER, SELFPAY ==
[2022-12-18 10:11] VITALS: BP 122/84; BMI 46.1
--- NOTE | 2022-12-18 10:11 | MHC.OFFVIS ---
Intake Vital Signs 12/18/22 10:11 Height 5 ft 5 in Weight 277 lb 2 oz BMI 46.1 BP 122/84 Blood Pressure Location Rt brachial Position Sitting Intake Visit Reasons: Annual Intake Note: Pt c/o: menses cycle heavy and 2x month ( 06/21-, 07/04-07/14, 08/07-08/14, 08/27-, 09/10-, 10/09-, 10/21-, 11/11-05/02) she states shes tried all other bc methods to help with bleeding (IUD, nexplonon) Light Bulb Replacer Required: No Accompanied by: Self / Same As Patient Allergies No Known Allergies Allergy (Verified 12/18/22 10:12) Medication List - Last Reconciled 12/18/22 by Yamileth Sebastian CNM loratadine (Allergy Relief (loratadine)) 10 mg PO DAILY PRN 90 days triamcinolone acetonide 0.1% 1 appl topical BID Is last menstrual period known: Yes HPI Annual HPI Details 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 She has a 2-1/2-month-old child who is autistic she says both of her children are autistic. She is still nursing her 2-1/2-year-old because she cries and she does not want to hear her cry. 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 She had her tubes tied for control so she is not worried about that but she has been getting her. Twice a month and it lasts a good long time she says it has always been like that since when she 1st got her period at age 10. She does think she has gained about 40 lb since she had the baby. She says her primary doctor referred her to the weight loss management program but she has not heard anything yet. She says she is not diabetic though on questioning she admits that she was told she is prediabetic. [facility] Medical History Morbid obesity No significant past medical history Surgical History Hx of section Tubal ligation status Family History Paternal Grandfather Stroke Paternal Grandmother HTN (hypertension) Maternal Grandfather HTN (hypertension) Diabetes mellitus Mother Uterine cancer Impaired glucose tolerance Maternal Aunt Breast cancer Social History Housing: Apartment Are you a primary child care teacher to a significant other at home: No Do you presently have visiting nurse or other home services: No Alcohol intake: never Patient Tobacco Use Status: Former Tobacco user Tobacco use type: Cigarette Cigarettes Per Day: 4 e-Cigarette/Vaping Use: Never Used Second Hand Smoke Exposure: No service: No Current occupational status: unemployed Gender identity: Female Cognitive needs: No Hearing needs: No Vision needs: No Female Reproductive History Menstrual Age of Menarche: 10 control method: permanent sterilization (tubal ligation ) Total pregnancies: 2 Number of Living Children: 2 Date of last pap smear: 06/09/19 (wnl) History of abnormal pap smear: No Physical Exam Vital Signs: Last Vital Signs BP 122/84 12/18/22 10:11 BMI result Body Mass Index 46.1 Const Other: Obesity General: healthy appearing, comfortable, no acute distress, well developed and alert Nutritional Appearance: average body habitus and obese Orientation/consciousness: patient oriented x3 Limitations: no limitations HEENT Head: Yes normocephalic Neck Neck: Yes normal visual inspection Chest Chest palpation & inspection: normal inspection of the chest Breast/axilla inspection: normal inspection of the breasts and normal inspection of the axillae Breast/axilla palpation: normal palpation of the breasts and normal palpation of the axillae Resp Effort & Inspection: normal respiratory effort GI Inspection: Yes normal to inspection, No Abdominal wall edema and No distended Palpation (GI): Soft to palpation and nontender Other: Normal appearing menses cervix is nulliparous uterus small anteverted nontender adnexa nontender good tone with Kegel. General: Yes bladder normal to palpation External Female Exam: normal external appearance and normal appearance of the urethra Speculum Exam - Vagina: normal appearance of the vagina, normal palpation and normal vaginal discharge Speculum Exam - Cervix: normal appearance of the cervix, normal palpation and nontender Bimanual exam- vagina & uterus: normal bimanual exam, normal palpation, uterine size normal, bladder normal to palpation, consistency normal, normal palpation, uterine mobility normal, uterine shape normal, No Cervical tenderness present, non-tender and no cervical motion tenderness Bimanual Exam- Adnexa, other: normal adnexae, no masses, normal and No adnexal tenderness Neuro General: patient oriented x3 Assessment & Plan Assessment & Plan (1) Well woman exam with routine gynecological exam: Code(s): Z01.419 - Encounter for gynecological examination (general) (routine) without abnormal findings (2) Morbid obesity: Code(s): E66.01 - Morbid (severe) obesity due to excess calories (3) Menorrhagia: Code(s): N92.0 - Excessive and frequent menstruation with regular cycle (4) Menstrual periods irregular: Code(s): N92.6 - Irregular menstruation, unspecified (5) Elevated fasting glucose: Code(s): R73.01 - Impaired fasting glucose (6) Hirsutism: Code(s): L68.0 - Hirsutism (7) Acne: Code(s): L70.9 - Acne, unspecified (8) Lactating mother: Code(s): Z39.1 - Encounter for care and examination of lactating mother Plan -----Discussed in this visit the following: healthy balanced diet, regular and consistent exercise, getting recommended health screens, doing the best she can for her particular health concerns, kegel exercises, pap smear screening and followup recommendations, mammography screening and SBE, normal changes in cycles in her life stage--- .Discussed her pattern of abnormal bleeding and the usual evaluation for it. Discussed the importance of ruling out any abnormal cells in her endometrium that are contributing to this. Discussed the ways of evaluating it, including pelvic ultrasound if appropriate, and an endometrial biopsy if appropriate. We will start with the pelvic ultrasound so today and labs discussed the common causes of abnormal bleeding, including cancerous or precancerous cells, endometrial hyperplasia, anovulatory cycles, fibroids, and other potential causes. Discussed evaluation methods including pelvic ultrasound to rule out any other abnormalities including fibroids, and any lab work if appropriate. Also discussed possible treatment to deal with the abnormal bleeding which may include medications, depending on age and other factors, that include control pills use of Provera or other medications, and Mirena IUDs. In certain cases there may be other treatment plans discussed as well. Discussed the connection with obesity and elevated hormones and the irregular cycles and in her case frequent cycles and ways of managing. I am ordering some lab work and I gave her brochure for the weight management program so she can call them herself even though the referral is already in from her [facility] and I have added some other labs and a pelvic ultrasound and we will see each other after the ultrasound the discussion about the Mirena. Orders: Orders Bacterial Vaginosis Panel Today Z01.419 - Encounter for gynecological examination (general) (routine) without abnormal findings CT NG by PCR Today Z01.419 - Encounter for gynecological examination (general) (routine) without abnormal findings Glucose Random Today E66.01 - Morbid (severe) obesity due to excess calories, N92.0 - Excessive and frequent menstruation with regular cycle, N92.6 - Irregular menstruation, unspecified, R73.01 - Impaired fasting glucose, Z01.419 - Encounter for gynecological examination (general) (routine) without abnormal findings Thyroid Stimulating Hormone Today E66.01 - Morbid (severe) obesity due to excess calories, N92.0 - Excessive and frequent menstruation with regular cycle, N92.6 - Irregular menstruation, unspecified, R73.01 - Impaired fasting glucose, Z01.419 - Encounter for gynecological examination (general) (routine) without abnormal findings Complete Blood Count no Diff Today E66.01 - Morbid (severe) obesity due to excess calories, N92.0 - Excessive and frequent menstruation with regular cycle, N92.6 - Irregular menstruation, unspecified, R73.01 - Impaired fasting glucose, Z01.419 - Encounter for gynecological examination (general) (routine) without abnormal findings Hepatitis B Surface Antigen Today E66.01 - Morbid (severe) obesity due to excess calories, N92.0 - Excessive and frequent menstruation with regular cycle, N92.6 - Irregular menstruation, unspecified, R73.01 - Impaired fasting glucose, Z01.419 - Encounter for gynecological examination (general) (routine) without abnormal findings Hepatitis C Antibody Today E66.01 - Morbid (severe) obesity due to excess calories, N92.0 - Excessive and frequent menstruation with regular cycle, N92.6 - Irregular menstruation, unspecified, R73.01 - Impaired fasting glucose, Z01.419 - Encounter for gynecological examination (general) (routine) without abnormal findings HIV Ab/Ag Today E66.01 - Morbid (severe) obesity due to excess calories, N92.0 - Excessive and frequent menstruation with regular cycle, N92.6 - Irregular menstruation, unspecified, R73.01 - Impaired fasting glucose, Z01.419 - Encounter for gynecological examination (general) (routine) without abnormal findings Syphilis Screen Today E66.01 - Morbid (severe) obesity due to excess calories, N92.0 - Excessive and frequent menstruation with regular cycle, N92.6 - Irregular menstruation, unspecified, R73.01 - Impaired fasting glucose, Z01.419 - Encounter for gynecological examination (general) (routine) without abnormal findings US pelvic and transvaginal Today E66.01 - Morbid (severe) obesity due to excess calories, L68.0 - Hirsutism, L70.9 - Acne, unspecified, N92.0 - Excessive and frequent menstruation with regular cycle, N92.6 - Irregular menstruation, unspecified Pap Smear Today Z01.419 - Encounter for gynecological examination (general) (routine) without abnormal findings Coding Level of Care Code Est Pt Prev Care 18-39y(54732) Diagnoses Well woman exam with routine gynecological exam Z01.419 Morbid obesity E66.01 Menorrhagia N92.0 Menstrual periods irregular N92.6 Elevated fasting glucose R73.01 Hirsutism L68.0 Acne L70.9 Lactating mother Z39.1
== END 2022-12-18 11:15 | disposition home or self-care (01) ==
LOC: HO.HWS 10:06
PROVIDERS: PCP Internal Medicine; Visit Provider Advanced Practice Midwife
DX: Z01.419 Encounter for gynecological examination (general) (routine) without abnormal findings (principal); E66.01 Morbid (severe) obesity due to excess calories; N92.0 Excessive and frequent menstruation with regular cycle; N92.6 Irregular menstruation, unspecified; R73.01 Impaired fasting glucose; L68.0 Hirsutism; L70.9 Acne, unspecified; Z39.1 Encounter for care and examination of lactating mother
CPT/HCPCS: 99395

== ENCOUNTER 2022-12-18 11:16 | Outpatient (REF) | payer OTHER, SELFPAY ==
[2022-12-18 14:02] LABS: Hematocrit 37.5 % (37.0-47.0); Mean Corpuscular Hemoglobin 26.8 pg (27.0-33.0); Mean Corpuscular Volume 83.9 fL (80.0-98.0); Mean Platelet Volume 11.4 fL (9.4-12.3); Platelet Count 285 X10*3/uL (160-400); Red Blood Count 4.47 X10*6/uL (4.20-5.50); White Blood Count 8.5 X10*3/uL (4.8-10.8)
[2022-12-18 14:53] LABS: Glucose Random 87 mg/dL (60-115)
[2022-12-18 15:00] LABS: CT PCR NOT DETECTED (Not Detect.); NG PCR NOT DETECTED (Not Detect.)
[2022-12-18 15:16] LABS: Thyroid Stimulating Hormone 2.23 uIU/mL (0.32-4.0)
[2022-12-19 03:36] LABS: Syphilis Screen Nonreactive (Nonreactive)
[2022-12-19 03:42] LABS: HBsAGNum1 0.41 S/CO (0.00-0.99); HIV AB/AG Nonreactive (Nonreactive); HIV Num 1 0.06 S/CO (0.00-0.99); Hepatitis B Surface Antigen Negative (Negative); ~HepC Num1 0.07 S/CO (0.00-0.79); ~Hepatitis C Antibody Nonreactive (Nonreactive)
== END 2022-12-18 11:17 | disposition home or self-care (01) ==
LOC: HO.LAB 11:16
PROVIDERS: Visit Provider Advanced Practice Midwife
DX: Z11.4 Encounter for screening for human immunodeficiency virus [HIV] (principal); E66.01 Morbid (severe) obesity due to excess calories; N92.0 Excessive and frequent menstruation with regular cycle; N92.6 Irregular menstruation, unspecified; R73.01 Impaired fasting glucose
CPT/HCPCS: 0353U; 82947; 84443; 85027; 86780; 86803; 87340; 87389

== ENCOUNTER 2022-12-25 10:48 | Outpatient (REF) | payer OTHER, SELFPAY ==
--- NOTE | ~2022-12-25 | US_ITS ---
EXAMINATION: US PELVIS COMPLETE CLINICAL INFORMATION: Irregular menstruation COMPARISON: Pelvic ultrasound 06/17/2019 TECHNIQUE: Transabdominal and transvaginal imaging was performed. FINDINGS: The uterus is of normal size and echogenicity measuring 10.2 x 4.3 x 6.1 cm. A regular homogeneous endometrium is identified measuring 0.6 cm. Uterus is retroflexed in position. Nabothian cysts in the cervix. Both ovaries are of normal size and echogenicity. The right measures 3.3 x 1.4 x 1.7 cm for a volume of 4.1 mL. The left measures 3.7 x 1.4 x 1.4 cm for a volume of 2.8 mL. A 0.8 cm unilocular exophytic left paraovarian simple adnexal cyst, no follow-up imaging recommended. There is no pelvic free fluid. US/US pelvic and transvaginal IMPRESSION: A 0.8 cm unilocular exophytic left paraovarian simple adnexal cyst, no follow-up imaging recommended. Otherwise unremarkable pelvic ultrasound.
== END 2022-12-25 10:49 | disposition home or self-care (01) ==
LOC: HO.US 10:48
PROVIDERS: PCP Internal Medicine; Visit Provider Advanced Practice Midwife
DX: N92.0 Excessive and frequent menstruation with regular cycle (principal); E66.01 Morbid (severe) obesity due to excess calories; L68.0 Hirsutism; L70.9 Acne, unspecified
CPT/HCPCS: 76830; 76856

== ENCOUNTER 2023-01-08 09:25 | Outpatient (AMB) | payer OTHER, SELFPAY ==
--- NOTE | 2023-01-08 09:30 | A.OFFPC_ITS ---
Vital Signs 01/08/23 09:32 Height 5 ft 5 in Weight 268 lb BMI 44.6 BP 128/82 Blood Pressure Location Lt brachial Position Sitting Intake Visit Reasons: rash Intake Note: Patient here for follow up rash, referral to dermatology Esthetician Makeup Artist Required: No Accompanied by: Self / Same As Patient Allergies No Known Allergies Allergy (Verified 01/08/23 10:14) Medication List - Last Reconciled 01/08/23 by Ashanti Levine MD loratadine (Allergy Relief (loratadine)) 10 mg PO DAILY PRN 90 days triamcinolone acetonide 0.1% 1 appl topical BID Tobacco use date assessed: 12/12/22 Dental Screening Dental Screen Date: 01/08/23 Did you have a dental visit in the last 12 months?: Yes Did you have a dental problem in the last 6 months where you did not have access to dental care?: No Was dental information given to patient?: Patient has dentist HPI HPI Comments History of Present Illness Details This is a 27-year-old female with morbid obesity that complains of a rash involving left arm and upper chest involving breast that started about 5 months ago. Will order prednisone and antihistamine. She is morbidly obese and was advised to diet and exercise to reach BMI goal less than 30. [facility] Medical History (Updated 01/08/23 @ 10:14 by Ashanti Levine MD) Morbid obesity Surgical History Hx of section Tubal ligation status Family History Paternal Grandfather Stroke Paternal Grandmother HTN (hypertension) Maternal Grandfather HTN (hypertension) Diabetes mellitus Mother Uterine cancer Impaired glucose tolerance Maternal Aunt Breast cancer Social History Housing: Apartment Are you a primary director of healthcare systems to a significant other at home: No Do you presently have visiting nurse or other home services: No Alcohol intake: never Patient Tobacco Use Status: Former Tobacco user Tobacco use type: Cigarette Cigarettes Per Day: 4 e-Cigarette/Vaping Use: Never Used Second Hand Smoke Exposure: No service: No Current occupational status: unemployed Gender identity: Female Cognitive needs: No Hearing needs: No Vision needs: No Female Reproductive History Menstrual Age of Menarche: 10 Questionnaire Thrive Questionnaire Date Thrive assessed: 04/10/22 ZOË-7 AMB Questionnaire ZOË-7 Date ZOË - 7 assessed: 04/10/22 Source: Developed by Drs. Jose Watts, Kaylin Macias, Isaiah Parra and colleagues, with an educational bina from [employer]. Review of Systems Const All systems reviewed & are unremarkable except as noted in HPI and below Eyes Reports no additional complaints, Denies change in vision and Denies other visual disturbances Card Denies chest pain at rest, Denies chest pain with activity, Denies edema, Denies irregular heart rhythm, Denies claudication, Denies dyspnea, Denies dyspnea on exertion, Denies orthopnea, Denies paroxysmal nocturnal dyspnea and Denies slow heart rate Resp Denies cough, Denies dyspnea and Denies dyspnea on exertion GI Denies abdominal pain, Denies change in bowel habits, Denies excessive flatus, Denies nausea and Denies vomiting Denies urinary incontinence, Denies urinary hesitancy and Denies urinary urgency Musc Denies abnormal gait, Denies atrophy, Denies deformity and Denies limited range of motion Skin/Breast Denies bleeding lesions, Denies changing lesions and Reports rash Neuro Denies abnormal gait and Denies lack of coordination Physical exam (Primary Care) Vital Signs: Last Vital Signs BP 128/82 01/08/23 09:32 BMI result Body Mass Index 44.6 Tobacco/Smoking Status: Tobacco use Status Tobacco use date assessed 12/12/22 01/08/23 09:31 Patient Tobacco Use Status Former Tobacco user 01/08/23 09:31 Tobacco use type Cigarette 01/08/23 09:31 e-Cigarette/Vaping Use Never Used 01/08/23 09:31 Thrive Assessment: Date of Thrive Assessment Date Thrive assessed 04/10/22 01/08/23 09:31 Eyes General: appearance normal, both eyes and all related structures Eyelids: Yes eyelids normal Conjunctivae: conjunctivae normal Neck Neck: Yes normal visual inspection and Yes supple Resp Effort & Inspection: normal respiratory effort Auscultation: clear to auscultation bilaterally Cardio Jugular venous distension: no JVD Rate: regular rate Rhythm: regular rhythm Heart sounds: S1 normal heart sound present and S2 normal heart sound present Skin Rashes: rashes noted Extrem General: Yes full ROM Assessment and Plan Assessment & Plan (1) Skin rash: Code(s): R21 - Rash and other nonspecific skin eruption Plan: Start prednisone pack. Replace loratadine with cetirizine. Referred to dermatology. (2) Morbid obesity: Code(s): E66.01 - Morbid (severe) obesity due to excess calories Plan: Declines weight loss surgery. Advised to diet and exercise to reach BMI goal less than 30. Orders: Referrals Dermatology Referral R21 - Rash and other nonspecific skin eruption Medications: New prednisone Take 4 tabs for 2 days, then 3 tabs for 2 days, then 2 tabs for 2 days, then 1 tab for 2 days 10 mg PO DIRECTED 20 tabs 0RF 8 days cetirizine 10 mg PO DAILY PRN 90 tabs 0RF allergy symptoms 90 days hydrocortisone 1% (Anti-Itch (hydrocortisone)) 1 appl topical BID PRN 28.35 grams 0RF skin irritation 30 days Discontinued triamcinolone acetonide 0.1% Discontinued Reason: Patient Completed Course 1 appl topical BID 15 grams 0RF R21 - Rash and other nonspecific skin eruption loratadine (Allergy Relief (loratadine)) Discontinued Reason: Patient Completed Course 10 mg PO DAILY 90 days PRN 90 tabs 0RF allergy symptoms Coding Level of Care Code Est Pt Level 3 (02152) Diagnoses Skin rash R21 Morbid obesity E66.01 Time Spent (min) 19
[2023-01-08 09:32] VITALS: BP 128/82; BMI 44.6
== END 2023-01-08 09:58 | disposition home or self-care (01) ==
PROVIDERS: PCP Internal Medicine; Visit Provider Internal Medicine
DX: R21 Rash and other nonspecific skin eruption (principal); E66.01 Morbid (severe) obesity due to excess calories; Z68.41 Body mass index [BMI] 40.0-44.9, adult
CPT/HCPCS: 99213

== ENCOUNTER 2023-01-08 10:08 | Outpatient (AMB) | payer OTHER, SELFPAY ==
--- NOTE | 2023-01-08 10:10 | A.OFFVIS_ITS ---
Intake Vital Signs 01/08/23 10:15 Height 5 ft 5 in Weight 268 lb BMI 44.6 BP 130/80 Intake Visit Reasons: Ultra sound/lab follow up Wearing Apparel Assembler Required: No Information Interpreted: non-clinical & clinical Allergies No Known Allergies Allergy (Verified 01/08/23 10:14) Medication List - Last Reconciled 01/08/23 by Yamileth Sebastian CNM cetirizine 10 mg PO DAILY PRN 90 days hydrocortisone 1% (Anti-Itch (hydrocortisone)) 1 appl topical BID PRN 30 days prednisone 10 mg PO DIRECTED 8 days Is last menstrual period known: Yes Last menstrual period: 01/02/23 Post menopausal: No Patient : No HPI Ultra sound/lab follow up HPI Details Patient is here for follow-up of her labs and ultrasound. She has been having irregular bleeding and her periods have been coming twice a month recently she had a period October 09 to October 21 to November 11 to December 17 to and since January 02 she has been spotting.. She is still nursing. She is trying to wean today because she has been having a rash and she has been on loratadine but Dr. Leone who she saw this morning just gave her prescription for medicine and she is going to run with this as an excuse to say that she is done her baby is 2-1/2 years old she wants to be done with it. She was given prescriptions for cetirizine and prednisone 10 mg for 8 days she a also has a prescription referral for Dermatology she has inflammation and real itching on her entire body that is made worse in the sun. [facility] Medical History Morbid obesity Surgical History Hx of section Tubal ligation status Family History Paternal Grandfather Stroke Paternal Grandmother HTN (hypertension) Maternal Grandfather HTN (hypertension) Diabetes mellitus Mother Uterine cancer Impaired glucose tolerance Maternal Aunt Breast cancer Social History Housing: Apartment Are you a primary plant health care technician to a significant other at home: No Do you presently have visiting nurse or other home services: No Alcohol intake: never Patient Tobacco Use Status: Former Tobacco user Tobacco use type: Cigarette Cigarettes Per Day: 4 e-Cigarette/Vaping Use: Never Used Second Hand Smoke Exposure: No Patient : No service: No Current occupational status: unemployed Gender identity: Female Cognitive needs: No Hearing needs: No Vision needs: No Female Reproductive History Menstrual Age of Menarche: 10 Duration of menses: other (8-12) Date of last menstrual period: 01/02/23 control method: permanent sterilization Total pregnancies: 2 Number of Living Children: 2 Physical Exam Vital Signs: Last Vital Signs BP 130/80 01/08/23 10:15 BMI result Body Mass Index 44.6 Results Reviewed Results Reviewed: [address] [address] Ultrasound Report Signed Patient: Teagan Harrison MR#: [id number] : 1995 Acct:[id number] Age/Sex: 27 / F ADM Date: 12/25/22 Loc: HO.US Attending Dr: Yamileth Sebastian CNM Ordering Physician: Yamileth Sebastian CNM Date of Service: 12/25/22 Procedure(s): US pelvic and transvaginal Accession Number(s): [id number] cc: Yamileth Sebastian CNM~ EXAMINATION: US PELVIS COMPLETE CLINICAL INFORMATION: Irregular menstruation COMPARISON: Pelvic ultrasound 06/17/2019 TECHNIQUE: Transabdominal and transvaginal imaging was performed. FINDINGS: The uterus is of normal size and echogenicity measuring 10.2 x 4.3 x 6.1 cm. A regular homogeneous endometrium is identified measuring 0.6 cm. Uterus is retroflexed in position. Nabothian cysts in the cervix. Both ovaries are of normal size and echogenicity. The right measures 3.3 x 1.4 x 1.7 cm for a volume of 4.1 mL. The left measures 3.7 x 1.4 x 1.4 cm for a volume of 2.8 mL. A 0.8 cm unilocular exophytic left paraovarian simple adnexal cyst, no follow-up imaging recommended. There is no pelvic free fluid. US/US pelvic and transvaginal IMPRESSION: A 0.8 cm unilocular exophytic left paraovarian simple adnexal cyst, no follow-up imaging recommended. Otherwise unremarkable pelvic ultrasound. ? Dictated By: Karen Ríos MD Signed By: <Electronically signed by Karen Ríos MD in OV> 12/25/221940 DD/ 08 TD/TT:? Account Services Representative: Name: Teagan Harrison Age/Sex: 27/F : 1995 Unit#: [id number] Attend Dr: Yamileth Sebastian [facility] Re12/18/22 Status: DEP REF Location: .LAB Disch: SPEC : [id number] GWEN: 12/18/22-1142 STATUS: COMP REQ : [id number] RECD: 12/18/22-[address]: Yamileth Sebastian [facility] COMP: 12/18/22-1516 ENTERED: 12/18/22-[address]: ORDERED: Glu Random, TSH Test Result Flag Reference Site Glucose, Random 87 60-115 mg/dL TSH 3rd Gen. 2.23 0.32-4.0 uIU/mL TSH 3rd Generation ([facility]) Assessment & Plan Assessment & Plan (1) Lactating mother: Code(s): Z39.1 - Encounter for care and examination of lactating mother (2) Acne: Code(s): L70.9 - Acne, unspecified (3) Hirsutism: Code(s): L68.0 - Hirsutism (4) Elevated fasting glucose: Code(s): R73.01 - Impaired fasting glucose (5) Menstrual periods irregular: Code(s): N92.6 - Irregular menstruation, unspecified (6) Menorrhagia: Code(s): N92.0 - Excessive and frequent menstruation with regular cycle (7) Skin rash: Code(s): R21 - Rash and other nonspecific skin eruption Plan Reviewed her ultrasound and her normal fasting blood sugar and her TSH that while slightly higher than is commonly seen is still within the normal range and would not require treatment. The patient has embarked on her own efforts to lose weight and is feeling very good about it because she is trying to eat well and exercise and drink a lot a water and she is trying to do would on her own she feels that if she gets stuck then she will pursue the weight management referral but for now she wants to do it on her own. She is going to use the skin rash in the medications as an excuse to stop and she is happy about that. She has felt ready to wean her daughter but her daughter has had other ideas. Discussed that the ultrasound is essentially within normal limits with the incidental finding of the paraovarian cyst. Her periods have only somewhat recently become so irregular and well she does not need Mirena IU S for control it may help really control her bleeding even though she does not have a thickened lining and she is young and this has not been longstanding I am going to plan on doing an endometrial biopsy along with the Mirena insertion on the day she comes which she is going to try to arrange to come with her. She is expecting it within a couple of weeks if it behaves as normal for her she says usually the 1st. In the month is the heavy 1 and then she gets more like spotting for with the 2nd 1. Reviewed side effects of the Mirena and I gave her a brochure Pap smear is still pending I did review all her other labs and I ordered some more extra as since she is fasting at this time and would like to go get them. Orders: Orders DHEA Sulfate Today L68.0 - Hirsutism, L70.9 - Acne, unspecified, N92.0 - Excessive and frequent menstruation with regular cycle, N92.6 - Irregular menstruation, unspecified, R73.01 - Impaired fasting glucose, Z39.1 - Encounter for care and examination of lactating mother Estrad Free (Tot Ultra + Free) Today L68.0 - Hirsutism, L70.9 - Acne, unspecified, N92.0 - Excessive and frequent menstruation with regular cycle, N92.6 - Irregular menstruation, unspecified, R73.01 - Impaired fasting glucose, Z39.1 - Encounter for care and examination of lactating mother Lutenizing Hormone Today L68.0 - Hirsutism, L70.9 - Acne, unspecified, N92.0 - Excessive and frequent menstruation with regular cycle, N92.6 - Irregular menstruation, unspecified, R73.01 - Impaired fasting glucose, Z39.1 - Encounter for care and examination of lactating mother Sex Hormone Binding Globulin Today L68.0 - Hirsutism, L70.9 - Acne, unspecified, N92.0 - Excessive and frequent menstruation with regular cycle, N92.6 - Irregular menstruation, unspecified, R73.01 - Impaired fasting glucose, Z39.1 - Encounter for care and examination of lactating mother Testosterone, Free/Total Today L68.0 - Hirsutism, L70.9 - Acne, unspecified, N92.0 - Excessive and frequent menstruation with regular cycle, N92.6 - Irregular menstruation, unspecified, R73.01 - Impaired fasting glucose, Z39.1 - Encounter for care and examination of lactating mother Prolactin Today L68.0 - Hirsutism, L70.9 - Acne, unspecified, N92.0 - Excessive and frequent menstruation with regular cycle, N92.6 - Irregular menstruation, unspecified, R21 - Rash and other nonspecific skin eruption, R73.01 - Impaired fasting glucose, Z39.1 - Encounter for care and examination of lactating mother Coding Level of Care Code Est Pt Level 3 (59501) Diagnoses Lactating mother Z39.1 Acne L70.9 Hirsutism L68.0 Elevated fasting glucose R73.01 Menstrual periods irregular N92.6 Menorrhagia N92.0 Skin rash R21
[2023-01-08 10:15] VITALS: BP 130/80; BMI 44.6
== END 2023-01-08 15:06 | disposition home or self-care (01) ==
PROVIDERS: PCP Internal Medicine; Visit Provider Advanced Practice Midwife
DX: Z39.1 Encounter for care and examination of lactating mother (principal); L70.9 Acne, unspecified; L68.0 Hirsutism; R73.01 Impaired fasting glucose; N92.6 Irregular menstruation, unspecified; N92.0 Excessive and frequent menstruation with regular cycle; R21 Rash and other nonspecific skin eruption
CPT/HCPCS: 99213

== ENCOUNTER 2023-01-08 10:08 | Outpatient (REF) | payer OTHER, SELFPAY ==
[2023-01-10 01:43] LABS: DHEA Sulfate 286 mcg/dL (14-349); Lutenizing Hormone 11.9 mIU/mL; Prolactin 4.7 ng/mL; Sex Hormone Binding Globulin 14 nmol/L (17-124)
[2023-01-15 03:48] LABS: Estradiol Free 2.49 pg/mL; Estradiol, Ultrasensitive 106 pg/mL
[2023-01-18 12:13] LABS: Testosterone, Total 27 ng/dL (2-45)
== END 2023-01-08 10:09 | disposition home or self-care (01) ==
LOC: HO.LAB 10:08
PROVIDERS: PCP Internal Medicine; Visit Provider Advanced Practice Midwife
DX: R21 Rash and other nonspecific skin eruption (principal); L68.0 Hirsutism; L70.9 Acne, unspecified; N92.0 Excessive and frequent menstruation with regular cycle; R73.01 Impaired fasting glucose
CPT/HCPCS: 36415; 82627; 82670; 82681; 83002; 84146; 84270; 84402; 84403; 99212

== ENCOUNTER 2023-01-15 10:29 | Outpatient (REF) | payer OTHER, SELFPAY | END 2023-01-15 10:30 | disposition home or self-care (01) | LOC: HO.LNP 10:29 | PROVIDERS: PCP Internal Medicine; Visit Provider Advanced Practice Midwife | DX: R87.615 Unsatisfactory cytologic smear of cervix (principal); N92.0 Excessive and frequent menstruation with regular cycle; E66.01 Morbid (severe) obesity due to excess calories; L70.9 Acne, unspecified; L68.0 Hirsutism; R73.01 Impaired fasting glucose | CPT/HCPCS: 58100; 81025; 88142; 99212 ==

== ENCOUNTER 2023-01-15 10:29 | Outpatient (AMB) | payer OTHER, SELFPAY ==
[2023-01-15 10:52] VITALS: BP 122/76; BMI 44.4
--- NOTE | 2023-01-15 10:52 | A.OFFVIS_ITS ---
Intake Vital Signs 01/15/23 10:52 Height 5 ft 5 in Weight 267 lb BMI 44.4 BP 122/76 Intake Visit Reasons: repeat pap/EMB Mathematical Statistician: Mathematical Statistician Present (Tiffany) Allergies No Known Allergies Allergy (Verified 01/15/23 10:52) Medication List - Last Reconciled 01/15/23 by Yamileth Sebastian CNM cetirizine 10 mg PO DAILY PRN 90 days hydrocortisone 1% (Anti-Itch (hydrocortisone)) 1 appl topical BID PRN 30 days prednisone 10 mg PO DIRECTED 8 days Is last menstrual period known: Yes Last menstrual period: 01/02/23 HPI repeat pap/EMB HPI Details Patient is here for repeat Pap smear and endometrial biopsy which has been discussed to be done because of her irregular bleeding pattern. She also has hirsute is a moved [place] city increased acne and other markers for PCOS and so we have been discussing these issues over the last several visits and she had lab work and ultrasounds to evaluate for all of this so we will discuss these issues as well. Patient had her period About 2 and half weeks ago. N/C test is negative she had her tubes tied so is not actually concerned about . If everything checks out okay the plan is to have a Mirena inserted in the future to deal with her irregular menses, she is pursuing a healthier eating pattern and exercise in order to lose weight and has embarked on walking an hour every evening as part of this though with this excessive heat wave she is not walking in the heat until it cools down. [facility] Medical History Morbid obesity Surgical History Hx of section Tubal ligation status Family History Paternal Grandfather Stroke Paternal Grandmother HTN (hypertension) Maternal Grandfather HTN (hypertension) Diabetes mellitus Mother Uterine cancer Impaired glucose tolerance Maternal Aunt Breast cancer Social History Housing: Apartment Are you a primary rn coronary care unit to a significant other at home: No Do you presently have visiting nurse or other home services: No Alcohol intake: never Patient Tobacco Use Status: Former Tobacco user Tobacco use type: Cigarette Cigarettes Per Day: 4 e-Cigarette/Vaping Use: Never Used Second Hand Smoke Exposure: No service: No Current occupational status: unemployed Gender identity: Female Cognitive needs: No Hearing needs: No Vision needs: No Female Reproductive History Menstrual Age of Menarche: 10 Date of last menstrual period: 01/02/23 Physical Exam Vital Signs: Last Vital Signs BP 122/76 01/15/23 10:52 BMI result Body Mass Index 44.4 Office Procedures Endometrial Biopsy Details: Patient is here for an endometrial biopsy. I explained the procedure and what the goal of the obtaining the sample is, and why we need need to do it today. Patient signed consent form, and appropriate testing was done beforehand. test is negative Patient was placed in recumbent position. Speculum was placed to visualize cervix the cervix was cleansed with Betadine. A tenaculum was gently placed to straighten the axis. The uterus was sounded to [7]cm. The endometrial biopsy Pipelle was inserted gently, and withdrawn to obtain sampling of the endometrial tissue for 3 passes. The tenaculum was removed and the cervix was swabbed gently as any bleeding subsided. the patient sat up after removal of the speculum. She is to return for discussion of the results and review of any other testing. [id number] Biopsy Results AMB Test Urine AMB Test Urine Negative Last Edit by BRITNI Dexter on 01/15/23 11:03 Results Reviewed Results Reviewed: Laboratory Last Values Tst Clinic Negative 01/15/23 11:02 Name: Teagan Harrison Age/Sex: 27/F Attending: Yamileth Sebastian CNM : 1995 Submitted by: Yamileth Sebastian CNM Copies to: Ashanti Xavier MD MR #: [id number] Status: DEP REF Collected: 12/18/22 [facility] Received: 12/19/22 Interpretation Unsatisfactory. Obscuring blood. HPV mRNA E6/E7: NOT DETECTED This assay detects E6/E7 viral messenger RNA (mRNA) from 14 high-risk HPV types (16, 18, 31, 33, 35, 39, 45, 51, 52, 56, 58, 59, 66, 68) HPV testing performed by [facility], [place], [place]. See reference laboratory pion of the EMR for entire report. Clinical Information LMP:12/08/22 Previous PAP test:06/09/19, WNL Material Received ThinPrep-Cervical Copies To Yamileth Sebastian[address] [place], [place] [id number] Ashanti Xavier [address] [place] [address] Electronically Signed By: SHANEL Bynum (ASCP) 01/13/23 1329 The Pap Test is a screening procedure with the inherent possibility of both false negative and false positive results. Results should be interpreted in the context of historic and current clinical findings. Reliability of the Pap Test is enhanced by performing the test on a regular repetitive basis. Patient: Teagan Harrison Age/Sex: 27/F MR#: [id number] Page 1 of 1 RUN: 01/15/23 6971 PAGE 1 [facility] [address] [place] [id number] Cupola Melter: Alvin Cui M.D. Specimen Inquiry Name: Teagan Harrison Age/Sex: 27/F : 1995 Unit#: [id number] Attend Dr: Yamileth Sebastian CNM Re12/18/22 Status: DEP REF Location: .LAB Disch: SPEC : [id number] GWEN: 12/18/22 STATUS: COMP REQ : [id number] RECD: 12/18/221216 SUBM DR: Yamileth Sebastian COMP: 12/19/22-335 ENTERED: 12/18/[address]: ORDERED: Syphil Scrn Test Result Flag Reference Site Syphilis TP EIA Nonreactive Nonreactive Name: Teagan Harrison Age/Sex: 27 : 1995 Unit#: [id number] Attend Dr: Yamileth Sebastian Re12/18/22 Status: DEP REF Location: .LAB Disch: SPEC : [id number] GWEN: 12/18/22 STATUS: COMP REQ : [id number] RECD: 12/18/221230 SUBM DR: Yamileth Sebastian COMP: 12/19/22 ENTERED: 12/18/[address]: ORDERED: Anti-HCV, HIV Ab/Ag, HBsAG Test Result Flag Reference Site Anti-HCV Nonreactive Nonreactive Antibodies to HCV not detected; does not exclude early acute HCV infection. HIV AB/AG Nonreactive Nonreactive HIV-1 p24 Ag and/or HIV-1/HIV-2 Ab not detected. A test result that is nonreactive does not exclude the possibility of exposure to or infection with HIV-1 and/or HIV-2. Nonreactive results in this assay for individuals with prior exposure to HIV-1 and/or HIV-2 may be due to antigen and antibody levels that are below the limit of detection of this assay. The [facility] [employer] Collector HIV Ag/Ab Combo assay result and supplemental assay results should be interpreted in conjunction with the patient's clinical presentation, history and other laboratory results. If the results are inconsistent with clinical evidence, additional testing is suggested to confirm the result. HBsAG Negative Negative RUN: 01/15/23 1141 PAGE 1 [facility] [address] [place] [phone] Cupola Melter: Alvin Cui M.D. Specimen Inquiry Name: Teagan Harrison Age/Sex: 27/ : 1995 Unit#: [id number] [facility] Status: [facility]P [facility]: SPEC : [id number] GWEN: 01/08/23 STATUS: RES REQ : [id number] RECD: 01/08/[address] COMP: 01/15/23 ENTERED: 01/08/[address]: Ashanti Xavier MD ORDERED: LH, Prol, DHEAS, Sex Hor Bin Nely, Testost Fr & T, Estrad Tot + Fr Test Result Flag Reference Site LH 11.9 mIU/mL QUM Reference Range Follicular Phase 1.9-12.5 Mid-Cycle Peak 8.7-76.3 Luteal Phase 0.5-16.9 Postmenopausal 10.0-54.7 THIS TEST WAS PERFORMED AT: [facility] [address] [place] [phone] TIERRA GARCIA MD Prolactin 4.7 ng/mL QUM Reference Range Females Non- 3.0-30.0 10.0-209.0 Postmenopausal 2.0-20.0 THIS TEST WAS PERFORMED AT: [facility] [address] [place] [phone] TIERRA GARCIA MD DHEA-Sulfate 286 14-349 mcg/dL QUM THIS TEST WAS PERFORMED AT: [facility] [address] [place] [phone] TIERRA GARCIA MD Sex Hor Bin Nely 14 L 17-124 nmol/L QUM THIS TEST WAS PERFORMED AT: [facility] [address] [phone] TIERRA GARCIA MD Testost, Tot PENDING Testost, Free PENDING Estradiol Free 2.49 pg/mL QU Female Reference Ranges for Estradiol, Free (pg/mL): Follicular Stage: 0.43-5.03 Luteal Stage: 0.40-5.55 Postmenopausal: < or = 0.38 Estradiol 106 pg/mL QU Female Reference Ranges for Estradiol, Ultrasensitive (pg/mL): Follicular Phase: 39-375 Luteal Phase: 48-440 Postmenopausal Phase: < or = 10 This test was developed and its analytical performance characteristics have been determined by [facility]. It has not been cleared or approved by FDA. This assay has been validated pursuant to the CLIA regulations and is used for clinical purposes. THIS TEST WAS PERFORMED AT: [facility] [address] [place] [address] RAMIN JIMENEZ MD,PHD,DAVID Patient: Teagan Harrison MR#: [id number] : 1995 Acct:[id number] Age/Sex: 27 / F ADM Date: 12/25/22 Loc: . Attending Dr: Yamileth Sebastian CNM Ordering Physician: Yamileth Sebastian CNM Date of Service: 12/25/22 Procedure(s): US pelvic and transvaginal Accession Number(s): [id number] cc: Yamileth Sebastian CNM~ EXAMINATION: US PELVIS COMPLETE CLINICAL INFORMATION: Irregular menstruation COMPARISON: Pelvic ultrasound 06/17/2019 TECHNIQUE: Transabdominal and transvaginal imaging was performed. FINDINGS: The uterus is of normal size and echogenicity measuring 10.2 x 4.3 x 6.1 cm. A regular homogeneous endometrium is identified measuring 0.6 cm. Uterus is retroflexed in position. Nabothian cysts in the cervix. Both ovaries are of normal size and echogenicity. The right measures 3.3 x 1.4 x 1.7 cm for a volume of 4.1 mL. The left measures 3.7 x 1.4 x 1.4 cm for a volume of 2.8 mL. A 0.8 cm unilocular exophytic left paraovarian simple adnexal cyst, no follow-up imaging recommended. There is no pelvic free fluid. US/US pelvic and transvaginal IMPRESSION: A 0.8 cm unilocular exophytic left paraovarian simple adnexal cyst, no follow-up imaging recommended. Otherwise unremarkable pelvic ultrasound. Dictated By: Karen Ríos MD Signed By: <Electronically signed by Karen Ríos MD in OV> 12/25/221940 DD/ 08 TD/TT: Assessment & Plan Assessment & Plan (1) Menstrual periods irregular: Code(s): N92.6 - Irregular menstruation, unspecified (2) Menorrhagia: Comment: See notes. Code(s): N92.0 - Excessive and frequent menstruation with regular cycle (3) Morbid obesity: Code(s): E66.01 - Morbid (severe) obesity due to excess calories (4) Lactating mother: Code(s): Z39.1 - Encounter for care and examination of lactating mother (5) Acne: Comment: See notes Code(s): L70.9 - Acne, unspecified (6) Hirsutism: Code(s): L68.0 - Hirsutism (7) Elevated fasting glucose: Code(s): R73.01 - Impaired fasting glucose Plan Endometrial biopsy was done smoothly Pap smear was also repeated we will have a visit to review the results next week it can be a tele visit I do not expect a worrisome result in this case. If in the meantime she gets her menses she may call because the plan is for us to try and insert Mirena with her menses and I do not anticipate difficulty with that either as the EMB went very smoothly. We reviewed all of her labs and also great detail about the PCOS and even though there was no clear way to label a diagnosis she meets criteria with at least 2/3 of the criteria with her combined obesity hirsute is Um acne irregular menses. Of larger concern then anything with ovaries is of course the issues with metabolic syndrome and effects. She indeed had an elevated fasting glucose in the past and we repeated that with these last labs and it was now more in the normal range at 87. I reviewed this with her as well she will be getting labs done with her primary again in about 6 months with her next annual exam. She intends to keep up her good work with healthy life changes and weight loss by exercising and eating better. I congratulated her on her efforts we will see her for review of results and Mirena insertion. Orders: Orders AMB Endometrial Biopsy Today E66.01 - Morbid (severe) obesity due to excess calories, L68.0 - Hirsutism, L70.9 - Acne, unspecified, N92.0 - Excessive and frequent menstruation with regular cycle, N92.6 - Irregular menstruation, unspecified, R73.01 - Impaired fasting glucose, Z39.1 - Encounter for care and examination of lactating mother AMB HCG Urine Test Today Z32.02 - Encounter for test, result negative Pap Smear Today R87.615 - Unsatisfactory cytologic smear of cervix Surgical Today N92.0 - Excessive and frequent menstruation with regular cycle, N93.9 - Abnormal uterine and vaginal bleeding, unspecified Coding Level of Care Code Est Pt Level 3 (78120) Diagnoses Menstrual periods irregular N92.6 Menorrhagia N92.0 Morbid obesity E66.01 Lactating mother Z39.1 Acne L70.9 Hirsutism L68.0 Elevated fasting glucose R73.01 CPT Codes Endometrial Biopsy - CPT: 99701-Hlbxykljqly Biopsy ([id number])
== END 2023-01-15 11:58 | disposition home or self-care (01) ==
PROVIDERS: PCP Internal Medicine; Visit Provider Advanced Practice Midwife
DX: L68.0 Hirsutism (principal); N92.6 Irregular menstruation, unspecified; N92.0 Excessive and frequent menstruation with regular cycle; E66.01 Morbid (severe) obesity due to excess calories; L70.9 Acne, unspecified; R73.01 Impaired fasting glucose; Z32.02 Encounter for pregnancy test, result negative; Z39.1 Encounter for care and examination of lactating mother
CPT/HCPCS: 58100; 99213

== ENCOUNTER 2023-01-15 11:38 | Outpatient (REF) | payer OTHER, SELFPAY | END 2023-01-15 11:39 | disposition home or self-care (01) | LOC: HO.LAB 11:38 | PROVIDERS: Visit Provider Advanced Practice Midwife | DX: N92.0 Excessive and frequent menstruation with regular cycle (principal) | CPT/HCPCS: 88305 ==

== ENCOUNTER 2023-01-19 08:51 | Outpatient (AMB) | payer OTHER, SELFPAY ==
--- NOTE | 2023-01-19 09:53 | AM.OFFWIN_ITS ---
Intake Vital Signs 01/19/23 09:54 Height 5 ft 5 in Weight 269 lb BMI 44.8 BP 110/70 Blood Pressure Location Rt brachial Position Sitting Pulse 75 Pulse Source Pulse Oximeter Temp 96.8 F Temp Source Temporal Artery Scan Pulse Oximetry (%) 98 Oxygen Delivery Method Room Air Intake Visit Reasons: EST/sore throat and runny nose (masked-Lobby) Intake Note: pt is here for c/o sore throat and runny nose x1 night Patient Tobacco Use Status: Former Tobacco user Allergies No Known Allergies Allergy (Verified 01/19/23 10:23) Medication List - Last Reconciled 01/19/23 by Leonel Clay MD cetirizine 10 mg PO DAILY PRN 90 days hydrocortisone 1% (Anti-Itch (hydrocortisone)) 1 appl topical BID PRN 30 days Do you need a note to return to daycare/school/sports/work: Yes HPI EST/sore throat and runny nose (masked-Lobby) HPI Details Patient presents for a sick visit. Reporting symptoms of sinus congestion, sore throat and difficulty swallowing. Low-grade fever. No family member is sick. No recent travel. Patient reports symptoms of malaise and fatigue. [facility] Medical History Morbid obesity Surgical History Hx of section Tubal ligation status Family History Paternal Grandfather Stroke Paternal Grandmother HTN (hypertension) Maternal Grandfather HTN (hypertension) Diabetes mellitus Mother Uterine cancer Impaired glucose tolerance Maternal Aunt Breast cancer Social History Housing: Apartment Are you a primary neurocritical care physician to a significant other at home: No Do you presently have visiting nurse or other home services: No Alcohol intake: never Patient Tobacco Use Status: Former Tobacco user Tobacco use type: Cigarette Cigarettes Per Day: 4 e-Cigarette/Vaping Use: Never Used Second Hand Smoke Exposure: No service: No Current occupational status: unemployed Gender identity: Female Cognitive needs: No Hearing needs: No Vision needs: No Female Reproductive History Menstrual Age of Menarche: 10 Physical Exam Vital Signs: Last Vital Signs Temp 96.8 F 01/19/23 09:54 Pulse 75 01/19/23 09:54 BP 110/70 01/19/23 09:54 Pulse Ox 98 01/19/23 09:54 Oxygen Delivery Method Room Air 01/19/23 09:54 BMI result Body Mass Index 44.8 Const General: cooperative and healthy appearing Nutritional Appearance: well nourished Orientation/consciousness: patient oriented x3 Limitations: no limitations HEENT Head: Yes normal to inspection Eyes General: appearance normal, both eyes and all related structures Neck Neck: Yes normal visual inspection Chest Chest palpation & inspection: normal palpation of entire chest wall Resp Effort & Inspection: normal respiratory effort Neuro General: patient oriented x3 Results AMB Rapid Strep AMB Rapid Strep Negative Last Edit by Francisco Morrison CMA on 01/19/23 10 :14 Results Reviewed Results Reviewed: Laboratory Last Values Strep Scn Rapid Clinic Negative 01/19/23 10:13 Assessment & Plan Assessment & Plan (1) Upper respiratory tract infection: Code(s): J06.9 - Acute upper respiratory infection, unspecified Plan: Increase fluid intake. Tylenol for aches and pains. If symptoms worsen, follow-up here for a recheck. No antibiotics needed. Increase fluid intake. COVID testing done. Note for work given. Orders: Orders AMB Rapid Strep Screen Today Z13.9 - Encounter for screening, unspecified Coding Level of Care Code Est Pt Level 3 (57734) Diagnoses Upper respiratory tract infection J06.9
[2023-01-19 09:54] VITALS: BP 110/70; PULSE 75; TEMP 36; O2SAT 98; BMI 44.8
== END 2023-01-19 10:23 | disposition home or self-care (01) ==
PROVIDERS: PCP Internal Medicine; Visit Provider Internal Medicine
DX: J06.9 Acute upper respiratory infection, unspecified (principal)
CPT/HCPCS: 87880; 99213

== ENCOUNTER 2023-01-19 12:19 | Outpatient (REF) | payer OTHER, SELFPAY ==
[2023-01-19 14:06] LABS: Influenza A PCR NEGATIVE (Negative); Influenza B PCR NEGATIVE (Negative); Resp Syncy Virus RNA Qual PCR NEGATIVE (Negative); SARS COV2 PCR INHOUSE POSITIVE (Negative)
== END 2023-01-19 12:20 | disposition home or self-care (01) ==
LOC: HO.LAB 12:19
PROVIDERS: Visit Provider Internal Medicine
DX: R43.9 Unspecified disturbances of smell and taste (principal); Z20.822 Contact with and (suspected) exposure to COVID-19
CPT/HCPCS: 0241U

== ENCOUNTER 2023-01-21 11:04 | Outpatient (AMB) | payer OTHER, SELFPAY ==
--- NOTE | 2023-01-21 11:02 | A.OFFVIS_ITS ---
Intake Intake Visit Reasons: EMB Results Allergies No Known Allergies Allergy (Verified 01/21/23 11:03) Medication List - Last Reconciled 01/21/23 by Yamileth Sebastian CNM cetirizine 10 mg PO DAILY PRN 90 days hydrocortisone 1% (Anti-Itch (hydrocortisone)) 1 appl topical BID PRN 30 days HPI EMB Results HPI Details This is a tele visit to review patient's endometrial biopsy results from January 16. Pap smear was also done and that day and is pending. Patient had had previous serum evaluations for PCOS labs which had been also reviewed with her patient has been having abnormal bleeding pattern for some time she is working hard on weight loss for herself. Discussion has taken place about placing a Mirena IU S if this endometrial biopsy is within normal limits I reviewed the endometrial biopsy results with her and which are negative for malignancy and patient is reassured. Discussed that we will go forward with the plan to place a Mirena at the beginning of her next menses and she should call when her period starts to see if she can get in within the 1st 3 days of her period. To improve her bleeding pattern going forward in the future. She is in agreement with this plan and did not have any further questions and will call when she gets her period. [facility] Medical History Morbid obesity Surgical History Tubal ligation status Hx of section Family History Paternal Grandfather Stroke Paternal Grandmother HTN (hypertension) Maternal Grandfather HTN (hypertension) Diabetes mellitus Mother Uterine cancer Impaired glucose tolerance Maternal Aunt Breast cancer Social History Housing: Apartment Are you a primary family day care worker to a significant other at home: No Do you presently have visiting nurse or other home services: No Alcohol intake: never Patient Tobacco Use Status: Former Tobacco user Tobacco use type: Cigarette Cigarettes Per Day: 4 e-Cigarette/Vaping Use: Never Used Second Hand Smoke Exposure: No service: No Current occupational status: unemployed Gender identity: Female Cognitive needs: No Hearing needs: No Vision needs: No Female Reproductive History Menstrual Age of Menarche: 10 Results Reviewed Results Reviewed: Name: Teagan Harrison Age/Sex: Attending: Yamileth Sebastian CNM : 1995 Submitted by: Yamileth Sebastian CNM Copies to: MR #: [id number] Status: DEP REF Collected: 01/15/23 Location: .LAB Received: 01/16/23 Diagnosis Endometrium, biopsy: Predominantly blood and single fragment inactive endometrium with stromal breakdown; fragments of benign endocervical glands; negative for malignancy. Clinical History AUB Microscopic Description Microscopic sections reviewed. Material Received Endometrial biopsy Gross Description The specimen is received in formalin in a single part labeled with the patient's name, date of and additionally labeled ?EMB?. It consists of hemorrhagic fragments of soft tissue measuring 1.0 x 1.0 x 0.5 cm in aggregate. The entire specimen is submitted in 1 cassette. NOTE: Unless otherwise stated, all tissue is formalin-fixed and paraffin- embedded. Some or all of the immunohistochemical tests reported herein may have been developed and their performance characteristics determined by [facility]. They have not been cleared or approved by the U.S. Food and Drug Administration (FDA). However, the FDA has determined that such clearance or approval is not necessary. This laboratory is certified under the Clinical Laboratory Improvement Amendments of 1988 (CLIA) as qualified to perform high complexity clinical laboratory testing. Electronically Signed By: Celi Cordova MD 01/19/23 2499 Patient: Teagan Harrison Age/Sex: 27/F MR#: [id number] Page 1 of 1 Assessment & Plan Assessment & Plan (1) Menorrhagia: Comment: See notes. Code(s): N92.0 - Excessive and frequent menstruation with regular cycle (2) Menstrual periods irregular: Code(s): N92.6 - Irregular menstruation, unspecified Plan This is a tele visit to review patient's endometrial biopsy results from January 16. Pap smear was also done and that day and is pending. Patient had had previous serum evaluations for PCOS labs which had been also reviewed with her patient has been having abnormal bleeding pattern for some time she is working hard on weight loss for herself. Discussion has taken place about placing a Mirena IU S if this endometrial biopsy is within normal limits I reviewed the endometrial biopsy results with her and which are negative for malignancy and patient is reassured. Discussed that we will go forward with the plan to place a Mirena at the beginning of her next menses and she should call when her period starts to see if she can get in within the 1st 3 days of her period. To improve her bleeding pattern going forward in the future. She is in agreement with this plan and did not have any further questions and will call when she gets her period. Telehealth Telehealth Location of provider rendering services: practice address Location of patient: address on file Patient Identification confirmed using: Name, : Yes Telehealth method: voice only Patient verbally consented to treatment: Yes Patient verbally consented to billing insurance company: Yes Patient informed of any privacy concerns related to visit: Yes Minutes spent on Phone/Video with Pt.: 5 Coding Level of Care Code Tele Est Pt Level 3 (94845) Diagnoses Menorrhagia N92.0 Menstrual periods irregular N92.6 Time Spent (min) 14 Comment 3 cr/ 5 speaking w pt, reviewing plan, 6 charting=14
== END 2023-01-21 12:56 | disposition home or self-care (01) ==
LOC: HO.HWS 11:04
PROVIDERS: PCP Internal Medicine; Visit Provider Advanced Practice Midwife
DX: N92.0 Excessive and frequent menstruation with regular cycle (principal); N92.6 Irregular menstruation, unspecified
CPT/HCPCS: 99213

== ENCOUNTER → 2023-01-21 11:04 | Outpatient (BNVA) | payer OTHER, SELFPAY | PROVIDERS: PCP Internal Medicine; Visit Provider Advanced Practice Midwife ==

== ENCOUNTER 2023-04-15 17:13 | Outpatient (AMB) | payer OTHER, SELFPAY ==
[2023-04-15 17:14] VITALS: BP 122/80; BMI 45.6
--- NOTE | 2023-04-15 17:14 | A.OFFPC_ITS ---
Vital Signs 04/15/23 17:14 Height 5 ft 5 in Weight 274 lb BMI 45.6 BP 122/80 Blood Pressure Location Lt brachial Position Sitting Intake Visit Reasons: Annual PE+ NEEDS PHQ9/THRIVE Intake Note: Patient here for a physical exam Parts Room Assistant Required: No Accompanied by: Self / Same As Patient Allergies No Known Allergies Allergy (Verified 04/15/23 17:20) Medication List - Last Reconciled 04/15/23 by Ashanti Levine MD cetirizine 10 mg PO DAILY PRN 90 days triamcinolone acetonide 0.1% 1 appl topical BID-TID Tobacco use date assessed: 12/12/22 Dental Screening Dental Screen Date: 04/15/23 Did you have a dental visit in the last 12 months?: No Did you have a dental problem in the last 6 months where you did not have access to dental care?: No Was dental information given to patient?: Patient has dentist HPI HPI Comments History of Present Illness Details This is a 27-year-old female with morbid obesity that comes for her physical exam. Last Pap smear was 2022. She is morbidly obese with a BMI of 45.6 and declines weight loss surgery. No chest pain or shortness of breath. Some slight bilateral hearing loss. [facility] Medical History (Updated 04/15/23 @ 17:30 by Ashanti Levine MD) Morbid obesity Surgical History Tubal ligation status Hx of section Family History Paternal Grandfather Stroke Paternal Grandmother HTN (hypertension) Maternal Grandfather HTN (hypertension) Diabetes mellitus Mother Uterine cancer Impaired glucose tolerance Maternal Aunt Breast cancer Social History Housing: Apartment Are you a primary physician locums urgent care to a significant other at home: No Do you presently have visiting nurse or other home services: No Alcohol intake: never Patient Tobacco Use Status: Former Tobacco user Tobacco use type: Cigarette Cigarettes Per Day: 4 e-Cigarette/Vaping Use: Never Used Second Hand Smoke Exposure: No service: No Current occupational status: unemployed Gender identity: Female Cognitive needs: No Hearing needs: No Vision needs: No Female Reproductive History Menstrual Age of Menarche: 10 Questionnaire PHQ-9 Over the last 2 weeks, how often have you been bothered by any of the following problems? 1. Little interest or pleasure in doing things: not at all 2. Feeling down, depressed, or hopeless: not at all 3. Trouble falling or staying asleep, or sleeping too much: not at all 4. Feeling tired or having little energy: not at all 5. Poor appetite or overeating: not at all 6. Feeling bad about yourself - or that you are a failure or have let yourself or your family down: not at all 7. Trouble concentrating on things, such as reading the newspaper or watching television: not at all 8. Moving or speaking so slowly that other people could have noticed. Or the opposite - being so fidgety or restless that you have been moving around a lot more than usual: not at all 9. Thoughts that you would be better off or of hurting yourself in some way: not at all Total score: 0 Depression Screening Interpretation: Negative Depression Screening Done: Yes 09484 - PHQ-9 Billing: Yes Source: Developed by Drs. Jose Watts, Kaylin Macias, Isaiah Parra and colleagues, with an educational bina from [employer]. Thrive Questionnaire Date Thrive assessed: 04/15/23 I am a: Patient What is your living situation today?: I have a steady place to live Within the past 12 months, did the food you bought not last and you didn't have the money to get more?: Never true Within the past 12 months, did you worry whether your food would run out before you got money to buy more?: Never true Do you have trouble paying for medicines?: No Do you have trouble getting transportation to medical appointments?: No Do you have trouble paying your heating and electricity bill?: No Do you have trouble taking care of your child, family member or friend?: No Do you have trouble with day-to-day activities such as bathing, preparing meals, shopping, managing finances, etc.?: No Are you currently unemployed and looking for a job?: No Are you interested in more education?: No Please select the resources that you would like help with: None Currently or been in a relationship where the following occur: no concerns reported AUDIT C Alcohol Use Questionnaire (AUDIT-C) 1. How often do you have a drink containing alcohol?: Never Total Score: 0 ZOË-7 AMB Questionnaire ZOË-7 Date ZOË - 7 assessed: 04/15/23 Feeling nervous, anxious, or on edge: 0 = Not at all Not being able to stop or control worryin = Not at all Worrying too much about different things: 0 = Not at all Trouble relaxin = Not at all Being so restless that it is hard to sit still: 0 = Not at all Becoming easily annoyed or irritable: 0 = Not at all Feeling afraid as if something awful might happen: 0 = Not at all Total ZOË-7 score (0-4 normal; 5-9 mild; 10-14 moderate; 15-21 severe): 0 Source: Developed by Drs. Jose Watts, Kaylin Macias, Isaiah Parra and colleagues, with an educational bina from [employer]. ZOË-7 Assessment Billing ZOË-7 Assessment Tool: ZOË-7 Assessment 66403 Review of Systems Const All systems reviewed & are unremarkable except as noted in HPI and below Eyes Reports no additional complaints, Denies change in vision and Denies other v isual disturbances Card Denies chest pain at rest, Denies chest pain with activity, Denies edema, Denies irregular heart rhythm, Denies claudication, Denies dyspnea, Denies dyspnea on exertion, Denies orthopnea, Denies paroxysmal nocturnal dyspnea and Denies slow heart rate Resp Denies cough, Denies dyspnea and Denies dyspnea on exertion GI Denies abdominal pain, Denies change in bowel habits, Denies excessive flatus, Denies nausea and Denies vomiting Denies urinary incontinence, Denies urinary hesitancy and Denies urinary urgency Musc Denies abnormal gait, Denies atrophy, Denies deformity and Denies limited range of motion Skin/Breast Denies bleeding lesions, Denies changing lesions and Denies rash Neuro Denies abnormal gait, Denies behavioral changes, Denies confusion and Denies lack of coordination Psych Denies behavioral changes and Denies confusion Physical exam (Primary Care) Vital Signs: Last Vital Signs BP 122/80 04/15/23 17:14 BMI result Body Mass Index 45.6 Tobacco/Smoking Status: Tobacco use Status Tobacco use date assessed 12/12/22 04/15/23 17:18 Patient Tobacco Use Status Former Tobacco user 04/15/23 17:18 Tobacco use type Cigarette 04/15/23 17:18 e-Cigarette/Vaping Use Never Used 04/15/23 17:18 Depression Screening Interpretation: Negative Thrive Assessment: Date of Thrive Assessment Date Thrive assessed 04/10/22 04/15/23 17:18 Currently or been in a relationship where the following occur: no concerns reported Const General: No confusion Orientation/consciousness: patient oriented x3 and No confusion HENMT Head: Yes normal to inspection, Yes normocephalic and Yes atraumatic Ears: external ears normal Eyes General: appearance normal, both eyes and all related structures Eyelids: Yes eyelids normal Conjunctivae: conjunctivae normal Neck Neck: Yes normal visual inspection and Yes supple Resp Effort & Inspection: normal respiratory effort Auscultation: clear to auscultation bilaterally Cardio Jugular venous distension: no JVD Rate: regular rate Rhythm: regular rhythm Heart sounds: S1 normal heart sound present and S2 normal heart sound present GI Inspection: Yes normal to inspection Palpation (GI): Soft to palpation and nontender Auscultation: normal bowel sounds Skin General skin exam: no rashes or lesions noted Neuro General: patient oriented x3, no focal motor deficits and No confusion Extrem General: Yes full ROM Psych Appearance: grossly normal Office Procedures Flu Questionnaire Does the patient have a severe egg allergy?: No Immunizations flu vacc [id number] 6mos up(PF) 60 mcg(15 mcgx4)/0.5 mL IM syringe Performing Provider: Ashanti Levine MD [facility] Documented (not given) by: BRITNI Garcia on 04/15/23 17:19 Reason Not Given: Patient Refused Assessment and Plan Assessment & Plan (1) Physical exam: Code(s): Z00.00 - Encounter for general adult medical examination without abnormal fin dings Plan: Repeat in a year (2) Morbid obesity: Code(s): E66.01 - Morbid (severe) obesity due to excess calories Plan: Start diet and exercise. BMI goal is less than 30. Orders: Orders Comprehensive Tram. Panel Fast Today Z00.00 - Encounter for general adult medical examination without abnormal findings Influenza [id number] Immunization Today Z23 - Encounter for immunization Lipid Panel Today Z00.00 - Encounter for general adult medical examination without abnormal findings Thyroid Stimulating Hormone Today E66.01 - Morbid (severe) obesity due to excess calories Referrals Speech and Hearing Referral H91.90 - Unspecified hearing loss, unspecified ear Medications: New sennosides (senna) 8.6 mg PO BEDTIME PRN 90 tabs 0RF constipation 90 days Coding Level of Care Code Est Pt Prev Care 18-39y(30709) Diagnoses Physical exam Z00.00 Morbid obesity E66.01 Additional Codes ZOË-7 Assessment Billing - ZOË-7 Assessment Tool: ZOË-7 Assessment 49033 ([id number]) Time Spent (min) 31
== END 2023-04-15 17:28 | disposition home or self-care (01) ==
PROVIDERS: Visit Provider Internal Medicine
DX: Z00.00 Encounter for general adult medical examination without abnormal findings (principal); E66.01 Morbid (severe) obesity due to excess calories; Z68.42 Body mass index [BMI] 45.0-49.9, adult
CPT/HCPCS: 99395

== ENCOUNTER 2023-04-16 08:49 | Outpatient (REF) | payer OTHER, SELFPAY ==
[2023-04-16 10:55] LABS: Alanine Aminotransferase 12 U/L (0-31); Alkaline Phosphatase 41 U/L (39-117); Anion Gap 12 (12-20); Aspartate Amino Transferase 13 U/L (5-31); Blood Urea Nitrogen 13 mg/dL (9-16); Calcium 9.2 mg/dL (8.4-10.2); Carbon Dioxide 29 mmol/L (22-29); Chloride 106 mmol/L (96-108); Cholesterol 139 mg/dL (<200); Estimated Glomerular Filt Rate > 60; Glucose Fasting 105 mg/dL (60-99); HDL Cholesterol 40 mg/dL (>40); LDL Cholesterol Calculated 76 mg/dL (<100); Potassium 4.3 mmol/L (3.3-5.1); Sodium 143 mmol/L (135-145); Total Protein 7.1 g/dL (6.5-8.0); Triglycerides 115 mg/dL (<150)
[2023-04-16 11:00] LABS: Thyroid Stimulating Hormone 3.38 uIU/mL (0.32-4.0)
== END 2023-04-16 08:50 | disposition home or self-care (01) ==
LOC: HO.LAB 08:49
PROVIDERS: PCP Internal Medicine; Visit Provider Internal Medicine
DX: Z00.00 Encounter for general adult medical examination without abnormal findings (principal); E66.01 Morbid (severe) obesity due to excess calories
CPT/HCPCS: 36415; 80053; 80061; 84443

== ENCOUNTER 2023-07-16 10:18 | Outpatient (REF) | payer OTHER, SELFPAY | END 2023-07-16 10:19 | disposition home or self-care (01) | LOC: HO.SH 10:18 | PROVIDERS: Visit Provider Internal Medicine | DX: Z01.118 Encounter for examination of ears and hearing with other abnormal findings (principal); H90.42 Sensorineural hearing loss, unilateral, left ear, with unrestricted hearing on the contralateral side | CPT/HCPCS: 92557; 92567 ==

== ENCOUNTER 2023-12-01 13:41 | Outpatient (REF) | payer OTHER, SELFPAY ==
[2023-12-02 12:02] LABS: CT PCR NOT DETECTED (Not Detect.); NG PCR NOT DETECTED (Not Detect.)
[2023-12-02 13:22] LABS: Bacterial Vaginosis PCR NEGATIVE (Negative); Candida Group PCR DETECTED (Not Detect); Candida glab krusei PCR NOT DETECTED (Not Detect); Trichomonas vaginalis PCR NOT DETECTED (Not Detect)
== END 2023-12-01 13:42 | disposition home or self-care (01) ==
LOC: HO.LAB 13:41
PROVIDERS: PCP Internal Medicine; Visit Provider Advanced Practice Midwife
DX: N89.8 Other specified noninflammatory disorders of vagina (principal); Z20.2 Contact with and (suspected) exposure to infections with a predominantly sexual mode of transmission; N94.89 Other specified conditions associated with female genital organs and menstrual cycle; B37.31 Acute candidiasis of vulva and vagina; N92.6 Irregular menstruation, unspecified; N92.0 Excessive and frequent menstruation with regular cycle
CPT/HCPCS: 0352U; 87491; 87591; 99212

== ENCOUNTER 2023-12-01 13:41 | Outpatient (AMB) | payer OTHER, SELFPAY ==
[2023-12-01 13:56] VITALS: BP 118/70; BMI 45.3
--- NOTE | 2023-12-01 13:56 | A.OFFVIS_ITS ---
Vital Signs 12/01/23 13:56 Height 5 ft 5 in Weight 272 lb BMI 45.3 BP 118/70 Intake Visit Reasons: ? infection [employer] Manager Required: No Information Interpreted: clinical only Business Process Representative: Business Process Representative Present Allergies No Known Allergies Allergy (Verified 12/01/23 13:57) Medication List - Last Reconciled 12/01/23 by Yamileth Sebastian CNM cetirizine 10 mg PO DAILY PRN 90 days sennosides (senna) 8.6 mg PO BEDTIME PRN 90 days triamcinolone acetonide 0.1% 1 appl topical BID-TID Is last menstrual period known: Yes Last menstrual period: 11/06/23 HPI HPI ? infection: Details: Patient thinks she might have a yeast infection she has never really had 1 bef ore. She has got vaginal itching and burning she was in her bathing suit all day long on the weekend and then the itching started. She also is getting tired of her periods they last 7-10 days and are very heavy and clotty and her last 1 was November 05 so she is expecting her periods soon. She had a full evaluation because of her menses last year with endometrial biopsy that showed no atypia and the plan was for a Mirena insertion with the following menses but she was uncertain about it and never came she had had a ParaGard IUD in the past and said it bothered her and so she was afraid that this would bother her as well she had her tubes tied so she is not worried about getting and also her had a vasectomy so she is W protected from . She has re considering her decision in his thinking that a Mirena would be the best thing for her. In addition she has questions about catching herpes or syphilis her sister's visiting and was diagnosed last year with herpes and syphilis was treated for the syphilis and has been tested since and is okay and has never had an outbreak but the herpes showed up her blood work she is curious about could she get it by sharing anything and wants to know about that. [facility] Medical History Morbid obesity Surgical History Tubal ligation status Hx of section Family History Paternal Grandfather Stroke Paternal Grandmother HTN (hypertension) Maternal Grandfather HTN (hypertension) Diabetes mellitus Mother Uterine cancer Impaired glucose tolerance Maternal Aunt Breast cancer Social History Housing: Apartment Are you a primary child care associate to a significant other at home: No Do you presently have visiting nurse or other home services: No Alcohol intake: never Patient Tobacco Use Status: Former Tobacco user Tobacco use type: Cigarette Cigarettes Per Day: 4 e-Cigarette/Vaping Use: Never Used Second Hand Smoke Exposure: No service: No Current occupational status: unemployed Gender identity: Female Cognitive needs: No Hearing needs: No Vision needs: No Female Reproductive History Menstrual Age of Menarche: 10 Duration of menses: 8-10 days Date of last menstrual period: 11/06/23 control method: none and permanent sterilization Total pregnancies: 2 Full term: 2 Date of last pap smear: 01/16/23 (negative) Physical Exam Vital Signs: Last Vital Signs BP 118/70 12/01/23 13:56 BMI result Body Mass Index 45.3 Other: External vulva a little bit dry and reddened especially near clitoris where she had been scratching. Vagina is pink and moist cervix multiparous pink smooth with clear mucus possibly indicative of either recent or soon to occur ovulation or soon to occur menses. External Female Exam: normal external appearance and normal appearance of the urethra Speculum Exam - Vagina: normal appearance of the vagina and normal vaginal discharge Speculum Exam - Cervix: normal appearance of the cervix and Cervical os closed Results Reviewed Results Reviewed: Name: Teagan Harrison Age/Sex: 27/F Attending: Yamielth Sebastian CNM : 1995 Submitted by: Yamileth Sebastian CNM Copies to: Ashanti Xavier MD MR #: [id number] Status: DEP REF Collected: 01/15/23 Location: [facility] Received: 01/16/23 Interpretation Satisfactory for evaluation. Negative for intraepithelial lesion or malignancy. Clinical Information LMP: 01/02/23 Previous PAP test: 12/18/22, Unsat Material Received ThinPrep-Cervical Copies To Yamileth Sebastian CNM [address] [place] [address] Dr. Granados [address] [place] [address] Ashanti Xavier MD [address] [place] [address] Dr. Granados [address] [place] [address] [place] [address] Electronically Signed By: Porsche Sultana 02/01/23 1721 The Pap Test is a screening procedure with the inherent possibility of both false negative and false positive results. Results should be interpreted in the context of historic and current clinical findings. Reliability of the Pap Test is enhanced by performing the test on a regular repetitive basis. Patient: Teagan Harrison Age/Sex: 27/F MR#: [id number] Page 1 of 1 Name: Teagan Harrison Age/Sex: 27/F Attending: Yamileth Sebastian CNM : 1995 Submitted by: Yamileth Sebastian CNM Copies to: MR #: [id number] Status: DEP REF Collected: 01/15/23 Location: [facility] Received: 01/16/23 Diagnosis Endometrium, biopsy: Predominantly blood and single fragment inactive endometrium with stromal breakdown; fragments of benign endocervical glands; negative for malignancy. Clinical History AUB Microscopic Description Microscopic sections reviewed. Material Received Endometrial biopsy Gross Description The specimen is received in formalin in a single part labeled with the patient's name, date of and additionally labeled ?EMB?. It consists of hemorrhagic fragments of soft tissue measuring 1.0 x 1.0 x 0.5 cm in aggregate. The entire specimen is submitted in 1 cassette. NOTE: Unless otherwise stated, all tissue is formalin-fixed and paraffin- embedded. Some or all of the immunohistochemical tests reported herein may have been developed and their performance characteristics determined by [facility]. They have not been cleared or approved by the U.S. Food and Drug Administration (FDA). However, the FDA has determined that such clearance or approval is not necessary. This laboratory is certified under the Clinical Laboratory Improvement Amendments of 1988 (CLIA) as qualified to perform high complexity clinical laboratory testing. Electronically Signed By: Celi Cordova MD 01/19/23 5907 Patient: Teagan Harrison Age/Sex: 27/F MR#: [id number] Page 1 of 1 Assessment & Plan Assessment & Plan (1) Cervical cancer screening: Comment: 01/15/2023 Pap is negative. Code(s): Z12.4 - Encounter for screening for malignant neoplasm of cervix Category: Medical (2) Yeast infection of the vagina: Code(s): B37.31 - Acute candidiasis of vulva and vagina Category: Medical (3) Menstrual periods irregular: Code(s): N92.6 - Irregular menstruation, unspecified Category: Medical (4) Menorrhagia: Comment: See notes. Code(s): N92.0 - Excessive and frequent menstruation with regular cycle Category: Medical Plan Patient thinks she might have a yeast infection she has never really had 1 before. She has got vaginal itching and burning she was in her bathing suit all day long on the weekend and then the itching started. She also is getting tired of her periods they last 7-10 days and are very heavy and clotty and her last 1 was November 05 so she is expecting her periods soon. She had a full evaluation because of her menses last year with endometrial biopsy that showed no atypia and the plan was for a Mirena insertion with the following menses but she was uncertain about it and never came she had had a ParaGard IUD in the past and said it bothered her and so she was afraid that this would bother her as well she had her tubes tied so she is not worried about getting and also her had a vasectomy so she is W protected from . She has re considering her decision in his thinking that a Mirena would be the best thing for her. In addition she has questions about catching herpes or syphilis her sister's visiting and was diagnosed last year with herpes and syphilis was treated for the syphilis and has been tested since and is okay and has never had an outbreak but the herpes showed up her blood work she is curious about could she get it by sharing anything and wants to know about that. Orders: Orders CT NG by PCR Today N89.8 - Other specified noninflammatory disorders of vagina, Z20.2 - Contact with and (suspected) exposure to infections with a predominantly sexual mode of transmission Bacterial Vaginosis Panel Today N89.8 - Other specified noninflammatory disorders of vagina, N94.89 - Other specified conditions associated with female genital organs and menstrual cycle Coding Level of Care Code Est Pt Level 3 (44600) Diagnoses Cervical cancer screening Z12.4 Yeast infection of the vagina B37.31 Menstrual periods irregular N92.6 Menorrhagia N92.0
== END 2023-12-01 14:53 | disposition home or self-care (01) ==
LOC: HO.HWSM 13:41
PROVIDERS: PCP Internal Medicine; Visit Provider Advanced Practice Midwife
DX: Z12.4 Encounter for screening for malignant neoplasm of cervix (principal); B37.31 Acute candidiasis of vulva and vagina; N92.6 Irregular menstruation, unspecified; N92.0 Excessive and frequent menstruation with regular cycle
CPT/HCPCS: 99213

== ENCOUNTER 2023-12-11 13:03 | Outpatient (AMB) | payer OTHER, SELFPAY ==
[2023-12-11 13:25] VITALS: BP 120/70; BMI 45.6
--- NOTE | 2023-12-11 13:25 | A.OFFVIS_ITS ---
Vital Signs 12/11/23 13:25 Height 5 ft 5 in Weight 274 lb BMI 45.6 BP 120/70 Intake Visit Reasons: Mirena Insertion [employer] Certified Network Associate Required: No Information Interpreted: clinical only Ball Rolling Machine Operator: Ball Rolling Machine Operator Present Allergies No Known Allergies Allergy (Verified 12/11/23 13:27) Medication List - Last Reconciled 12/11/23 by Yamileth Sebastian CNM cetirizine 10 mg PO DAILY PRN 90 days fluconazole 150 mg PO Q3D 2 doses miconazole nitrate 2% (Miconazole-7) 1 appful vaginal BEDTIME 7 days sennosides (senna) 8.6 mg PO BEDTIME PRN 90 days triamcinolone acetonide 0.1% 1 appl topical BID-TID Is last menstrual period known: Yes Last menstrual period: 12/07/23 Do you need a note to return to daycare/school/sports/work: No HPI HPI Mirena Insertion: Details: Heavy irregular bleeding last year had an endometrial biopsy was negative and a plan made for insertion of a Mirena however the patient did not come as planned and said she was thinking about it and when she came last week for issues with a yeast infection she renewed the planned place the Mirena IU S to deal with her heavy periods which are coming frequently and last a long time. She does keep track and this. She was expecting last week so we were anticipating insertion this week. It came on Thursday but the office could not accommodate getting her in until today she is here with her 3-year-old. [facility] Medical History (Updated 12/11/23 @ 13:59 by Yamileth Sebastian CNM) Morbid obesity Surgical History (Updated 12/11/23 @ 13:59 by Yamileth Sebastian CNM) Tubal ligation status Hx of section Family History Paternal Grandfather Stroke Paternal Grandmother HTN (hypertension) Maternal Grandfather HTN (hypertension) Diabetes mellitus Mother Uterine cancer Impaired glucose tolerance Maternal Aunt Breast cancer Social History Housing: Apartment Are you a primary acute care occupational therapist to a significant other at home: No Do you presently have visiting nurse or other home services: No Alcohol intake: never Patient Tobacco Use Status: Former Tobacco user Tobacco use type: Cigarette Cigarettes Per Day: 4 e-Cigarette/Vaping Use: Never Used Second Hand Smoke Exposure: No service: No Current occupational status: unemployed Gender identity: Female Cognitive needs: No Hearing needs: No Vision needs: No Female Reproductive History Menstrual Age of Menarche: 10 Date of last menstrual period: 12/07/23 control method: permanent sterilization Date of last pap smear: 01/16/23 (negative) Physical Exam Vital Signs: Last Vital Signs BP 120/70 12/11/23 13:25 BMI result Body Mass Index 45.6 External Female Exam: normal external appearance Speculum Exam - Vagina: normal appearance of the vagina and normal vaginal discharge Speculum Exam - Cervix: normal appearance of the cervix Bimanual exam- vagina & uterus: normal bimanual exam, uterine size normal, consistency normal, uterine mobility normal, uterine shape normal and non-tender Bimanual Exam- Adnexa, other: normal adnexae, no masses and No adnexal tenderness Office Procedures IUD Insert/Removal Details Details: ---Patient is here for her IUD insertion. Bimanual exam was done. Her uterus is firm, nontender, and appropriate sized, and is retroverted . The cervix was swabbed with Betadine. Tenaculum was placed on the cervix slowly to minimize cramping. The uterus was sounded slowly and gently she show a measurement of 7 cm. The IUD was removed from its package, after checking identifying information and lot dates and expiration dates and and gently inserted into the os, as per the IUD insertion procedure. The strings were then trimmed to 3 centimetres. The tenaculum was removed and gentle pressure applied with a swab, until any bleeding subsided from the tenaculum sites. The speculum was gently removed. The patient sat up. I Reviewed what to expect, and what indications would necessitate a call. Pt to call for fever, untoward pain or cramping. I reviewed any appropriate backup method. Pt to return for recheck as scheduled. 49827-ESY Insertion Procedure code (CPT) selection complete Office Meds Mirena 21 mcg/24 hr (up to 8 years) 52 mg intrauterine device Performing Provider: Yamileth Sebastian CNM [facility] Administered by: Liset Paulson CMA on 12/11/23 13:53 Dose Route Admin Location Dispensed Lot Number Expiration Date NDC Computer Technologist 1 device intrauterine 1 ea [id number] 08/07/25 Results AMB Test Urine AMB Test Urine Negative Last Edit by Liset Paulson CMA on 12/11/23 13:32 Results Reviewed Results Reviewed: Laboratory Last Values [facility] Negative 12/11/23 13:32 preg test neg. Assessment & Plan Assessment & Plan (1) Yeast infection of the vagina: Comment: Resolved with Diflucan and also with external Monistat. Code(s): B37.31 - Acute candidiasis of vulva and vagina Category: Medical (2) Menorrhagia: Comment: See notes. Code(s): N92.0 - Excessive and frequent menstruation with regular cycle Category: Medical (3) Encounter for insertion of 52 mg levonorgestrel-releasing intrauterine device (IUD): Code(s): Z30.430 - Encounter for insertion of intrauterine contraceptive device Category: Medical (4) Hirsutism: Code(s): L68.0 - Hirsutism Category: Medical (5) Menstrual periods irregular: Code(s): N92.6 - Irregular menstruation, unspecified Category: Medical (6) Morbid obesity: Code(s): E66.01 - Morbid (severe) obesity due to excess calories Category: Medical (7) Tubal ligation status: Code(s): Z98.51 - Tubal ligation status Category: Surgical Plan Reviewed with the patient the reason for considering placing of the Mirena the patient reminded me that her periods were not just regular but irregular and that that was part of the reason she wanted it twice as well she had had an endometrial biopsy last January which was negative plan was made then for Mirena insertion however she did not follow-up then so we are going to place it now I told her I could not guarantee that her periods would get better right away, given that the period that began on Thursday, has pretty much almost all completely ended at this time, that there no guarantee how long it will take for the Mirena to have an effect on the buildup of the lining of the uterus and therefore her menstrual type bleeding. This note is constructed using voice recognition software. While every effort has been made to ensure accuracy, senior telecommunications consultant errors may have been included. Orders: Orders AMB HCG Urine Test Today Z32.02 - Encounter for test, result negative AMB IUD Insertion/Removal - Practice Supplied Today Z30.430 - Encounter for insertion of intrauterine contraceptive device Coding Level of Care Code Est Pt Level 3 (67762) Diagnoses Yeast infection of the vagina B37.31 Menorrhagia N92.0 Encounter for insertion of 52 mg levonorgestrel-releasing intrauterine device (IUD) Z30.430 Hirsutism L68.0 Menstrual periods irregular N92.6 Morbid obesity E66.01 Tubal ligation status Z98.51 CPT Codes Details - CPT: 51182-ORL Insertion ([id number])
== END 2023-12-11 13:58 | disposition home or self-care (01) ==
LOC: HO.HWSM 13:03
PROVIDERS: PCP Internal Medicine; Visit Provider Advanced Practice Midwife
DX: Z30.430 Encounter for insertion of intrauterine contraceptive device (principal); Z32.02 Encounter for pregnancy test, result negative
CPT/HCPCS: 58300

== ENCOUNTER → 2023-12-11 13:03 | Outpatient (BNVA) | payer OTHER, SELFPAY | PROVIDERS: PCP Internal Medicine; Visit Provider Advanced Practice Midwife | DX: Z30.430 Encounter for insertion of intrauterine contraceptive device (principal); N92.0 Excessive and frequent menstruation with regular cycle; N92.6 Irregular menstruation, unspecified; L68.0 Hirsutism; E66.01 Morbid (severe) obesity due to excess calories; Z68.42 Body mass index [BMI] 45.0-49.9, adult | CPT/HCPCS: 58300; 81025; J7298 ==

== ENCOUNTER 2024-03-10 14:38 | Outpatient (AMB) | payer OTHER, SELFPAY ==
--- NOTE | 2024-03-10 14:41 | A.OFFVIS_ITS ---
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 She reports that since the Mirena has been inserted she has been bleeding a little bit heavier than with the periods and they have been going on for quite a while at their heaviest though she had to change her pad twice a day never very heavy also at the very end the. It would for quite a while brown spotting she still had that today but she does not have it enough that she needs to wear anything to protect her undies. She feels fine when she has had sex. She is not sure if she got HPV vaccine because she [place] to to so she is not sure about the ability to get records. From [place]. She is going to ask her mom. Her last Pap smear was negative last year when she was 27. Discussed that now that she is 28 and older be done it co testing, and her next Pap with then be done in 2 years with Co test ing. 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 Reviewed that the bleeding pattern she has in the Mirena hopefully get better and it is of she had heavy menstrual she was that is why it was placed. [facility] Medical History (Updated 03/10/24 @ 15:21 by Yamileth Sebastian CNM) Morbid obesity Surgical History Tubal ligation status Hx of section Family History Paternal Grandfather Stroke Paternal Grandmother HTN (hypertension) Maternal Grandfather HTN (hypertension) Diabetes mellitus Mother Uterine cancer Impaired glucose tolerance Maternal Aunt Breast cancer Social History Housing: Apartment Are you a primary child day care provider to a significant other at home: No Do you presently have visiting nurse or other home services: No Alcohol intake: never Patient Tobacco Use Status: Former Tobacco user Tobacco use type: Cigarette Cigarettes Per Day: 4 e-Cigarette/Vaping Use: Never Used Second Hand Smoke Exposure: No service: No Current occupational status: unemployed Gender identity: Female Cognitive needs: No Hearing needs: No Vision needs: No Female Reproductive History Menstrual Age of Menarche: 10 Duration of menses: 3-5 days Date of last menstrual period: 02/15/24 control method: progestin IUCD and permanent sterilization Total pregnancies: 2 Full term: 2 Date of last pap smear: 06/01/22 (neg.) Physical Exam Vital Signs: Last Vital Signs BP 118/78 03/10/24 14:43 Results Reviewed Results Reviewed: Patient: Teagan Harrison MR#: [id number] : 1995 Acct:[id number] Age/Sex: 27 / F ADM Date: 12/25/22 Loc: HO. Attending Dr: Yamileth Sebastian CNM Ordering Physician: Yamileth Sebastian CNM Date of Service: 12/25/22 Procedure(s): US pelvic and transvaginal Accession Number(s): [id number] cc: Yamileth Sebastian CNM~ EXAMINATION: US PELVIS COMPLETE CLINICAL INFORMATION: Irregular menstruation COMPARISON: Pelvic ultrasound 06/17/2019 TECHNIQUE: Transabdominal and transvaginal imaging was performed. FINDINGS: The uterus is of normal size and echogenicity measuring 10.2 x 4.3 x 6.1 cm. A regular homogeneous endometrium is identified measuring 0.6 cm. Uterus is retroflexed in position. Nabothian cysts in the cervix. Both ovaries are of normal size and echogenicity. The right measures 3.3 x 1.4 x 1.7 cm for a volume of 4.1 mL. The left measures 3.7 x 1.4 x 1.4 cm for a volume of 2.8 mL. A 0.8 cm unilocular exophytic left paraovarian simple adnexal cyst, no follow-up imaging recommended. There is no pelvic free fluid. US/US pelvic and transvaginal IMPRESSION: A 0.8 cm unilocular exophytic left paraovarian simple adnexal cyst, no follow-up imaging recommended. Otherwise unremarkable pelvic ultrasound. Dictated By: Karen Ríos MD Signed By: <Electronically signed by Karen Ríos MD in OV> 12/25/221940 DD/ 1109 TD/TT: Floor Scraper: Name: Teagan Harrison Age/Sex: 27/F Attending: Yamileth Sebastian CNM : 1995 Submitted by: Yamileth Sebastian CNM Copies to: Ashanti Xavier MD MR #: [id number] Status: DEP REF Collected: 01/15/23 [facility] Received: 01/16/23 Interpretation Satisfactory for evaluation. Negative for intraepithelial lesion or malignancy. Clinical Information LMP: 01/02/23 Previous PAP test: 12/18/22, Unsat Material Received ThinPrep-Cervical Copies To Yamileth Sebastian CNM [address] [place] [address] Dr. [address] [address] Ashanti Xavier MD [address] [place] [address] [address]. [address] [address] Electronically Signed By: Porcshe Sultana 02/01/23 9803 The Pap Test is a screening procedure with the inherent possibility of both false negative and false positive results. Results should be interpreted in the context of historic and current clinical findings. Reliability of the Pap Test is enhanced by performing the test on a regular repetitive basis. Name: Teagan Harrison Age/Sex: 27/F Attending: Yamileth Sebastian CNM : 1995 Submitted by: Yamileth Sebastian CNM Copies to: MR #: [id number] Status: DEP REF Collected: 01/15/23 Location: [facility] Received: 01/16/23 Diagnosis Endometrium, biopsy: Predominantly blood and single fragment inactive endometrium with stromal breakdown; fragments of benign endocervical glands; negative for malignancy. Clinical History AUB Microscopic Description Microscopic sections reviewed. Material Received Endometrial biopsy Gross Description The specimen is received in formalin in a single part labeled with the patient's name, date of and additionally labeled ?EMB?. It consists of hemorrhagic fragments of soft tissue measuring 1.0 x 1.0 x 0.5 cm in aggregate. The entire specimen is submitted in 1 cassette. NOTE: Unless otherwise stated, all tissue is formalin-fixed and paraffin-embedded. Some or all of the immunohistochemical tests reported herein may have been developed and their performance characteristics determined by [facility]. They have not been cleared or approved by the U.S. Food and Drug Administration (FDA). However, the FDA has determined that such clearance or approval is not necessary. This laboratory is certified under the Clinical Laboratory Improvement Amendments of 1988 (CLIA) as qualified to perform high complexity clinical laboratory testing. Electronically Signed By: Celi Cordova MD 01/19/23 0713 Patient: Teagan Harrison Age/Sex: 27/F MR#: [id number] Page 1 of 1 Patient: Teagan Harrison Age/Sex: 27/F MR#: [id number] Page 1 of 1 Assessment & Plan Assessment & Plan (1) Tubal ligation status: Code(s): Z98.51 - Tubal ligation status Category: Surgical (2) Cervical cancer screening: Comment: 01/15/2023 Pap is negative. Code(s): Z12.4 - Encounter for screening for malignant neoplasm of cervix Category: Medical (3) IUD check up: Code(s): Z30.431 - Encounter for routine checking of intrauterine contraceptive device Category: Medical (4) Presence of 52 mg levonorgestrel-releasing intrauterine device (IUD): Code(s): Z97.5 - Presence of (intrauterine) contraceptive device Category: Social Hx (5) Menstrual periods irregular: Code(s): N92.6 - Irregular menstruation, unspecified Category: Medical (6) Morbid obesity: Comment: Patient is losing by combination eating healthier ,fewer sweets, fasting, and smaller portions. Code(s): E66.01 - Morbid (severe) obesity due to excess calories Category: Medical Plan Patient is here for an IUD check but she is not comfortable getting a pelvic or speculum exam today she just came from work and she has been sweaty. She reports that since the Mirena has been inserted she has been bleeding a little bit heavier than with the periods and they have been going on for quite a while at their heaviest though she had to change her pad twice a day never very heavy also at the very end the. It would for quite a while brown spotting she still had that today but she does not have it enough that she needs to wear anything to protect her undies. She feels fine when she has had sex. She is not sure if she got HPV vaccine because she [place] to to so she is not sure about the ability to get records. From [place]. She is going to ask her mom. Her last Pap smear was negative last year when she was 27. Discussed that now t hat she is 28 and older be done it co testing, and her next Pap with then be done in 2 years with Co test ing. 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 Reviewed that the bleeding pattern she has with the Mirena hopefully will get better and it is because she had heavy menstrual bleeding that that is why it was placed. Coding Level of Care Code Est Pt Level 3 (30036) Diagnoses Tubal ligation status Z98.51 Cervical cancer screening Z12.4 IUD check up Z30.431 Presence of 52 mg levonorgestrel-releasing intrauterine device (IUD) Z97.5 Menstrual periods irregular N92.6 Morbid obesity E66.01
[2024-03-10 14:43] VITALS: BP 118/78
== END 2024-03-10 15:15 | disposition home or self-care (01) ==
PROVIDERS: PCP Internal Medicine; Visit Provider Advanced Practice Midwife
DX: Z30.431 Encounter for routine checking of intrauterine contraceptive device (principal)
CPT/HCPCS: 99213

== ENCOUNTER → 2024-03-10 14:40 | Outpatient (BNVA) | payer OTHER, SELFPAY | PROVIDERS: PCP Internal Medicine; Visit Provider Advanced Practice Midwife | DX: Z30.431 Encounter for routine checking of intrauterine contraceptive device (principal); Z12.4 Encounter for screening for malignant neoplasm of cervix; N92.6 Irregular menstruation, unspecified; E66.01 Morbid (severe) obesity due to excess calories; Z98.51 Tubal ligation status | CPT/HCPCS: 99212 ==

== ENCOUNTER 2024-04-15 09:23 | Outpatient (AMB) | payer OTHER, SELFPAY ==
[2024-04-15 09:27] VITALS: BP 110/70; BMI 43.9
--- NOTE | 2024-04-15 09:27 | MHC.OFFVIS ---
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 Required: No Information Interpreted: clinical only Scrap Drop Crane Operator: Scrap Drop Crane Operator Present Allergies No Known Allergies Allergy (Verified 04/15/24 09:30) Medication List - Last Reconciled 04/15/24 by Yamileth Sebastian CNM cetirizine 10 mg PO DAILY PRN 90 days levonorgestrel (Mirena) intrauterine miconazole nitrate 2% (Miconazole-7) 1 appful vaginal BEDTIME 7 days sennosides (senna) 8.6 mg PO BEDTIME PRN 90 days triamcinolone acetonide 0.1% 1 appl topical BID-TID Is last menstrual period known: Yes Last menstrual period: 04/03/24 HPI HPI 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 She has been working losing weight by a [employer] etc. and she has lost 10 lb since this time last year. She has her annual exam with her primary care provider coming up she was previously noted to have elevated blood sugar the prediabetic range so subsequent test was improved but she plans to discuss weight loss medication her primary care provider to see she is a candidate because she is interested in it. Her grandmother of breast cancer sounds like she developed it in the 50s later and her aunt has breast cancer and she was diagnosed in her 50s as well. [facility] Medical History Morbid obesity Surgical History Tubal ligation status Hx of section Family History Paternal Grandfather Stroke Paternal Grandmother HTN (hypertension) Maternal Grandfather HTN (hypertension) Diabetes mellitus Mother Uterine cancer Impaired glucose tolerance Maternal Aunt Breast cancer Social History Housing: Apartment Are you a primary direct support professional caregiver to a significant other at home: No Do you presently have visiting nurse or other home services: No Alcohol intake: never Patient Tobacco Use Status: Former Tobacco user Tobacco use type: Cigarette Cigarettes Per Day: 4 e-Cigarette/Vaping Use: Never Used Second Hand Smoke Exposure: No service: No Current occupational status: unemployed Gender identity: Female Cognitive needs: No Hearing needs: No Vision needs: No Female Reproductive History Menstrual Age of Menarche: 10 Duration of menses: 3-5 days Date of last menstrual period: 04/03/24 control method: progestin IUCD and permanent sterilization Total pregnancies: 2 Full term: 2 Date of last pap smear: 01/16/23 (negative,2019 WNL) Physical Exam Vital Signs: Last Vital Signs BP 110/70 04/15/24 09:27 BMI result Body Mass Index 43.9 Const General: healthy appearing, comfortable, no acute distress, well developed and alert Nutritional Appearance: average body habitus Orientation/consciousness: patient oriented x3 Limitations: no limitations HEENT Head: Yes normocephalic Neck Neck: Yes normal visual inspection Chest Chest palpation & inspection: normal inspection of the chest Breast/axilla inspection: normal inspection of the breasts and normal inspection of the axillae Breast/axilla palpation: normal palpation of the breasts and normal palpation of the axillae Resp Effort & Inspection: normal respiratory effort GI Inspection: Yes normal to inspection, No Abdominal wall edema and No distended Palpation (GI): Soft to palpation and nontender Other: Normal speculum exam vagina pink and moist nulliparous pink healthy appearing cervix has clear mucus with Mirena string visible about 2 cm in length cervix is long close thick mobile tender uterus is small retroverted mobile nontender adnexa nontender moderate good tone Kegel. General: Yes bladder normal to palpation External Female Exam: normal external appearance and normal appearance of the urethra Speculum Exam - Vagina: normal appearance of the vagina, normal palpation and normal vaginal discharge Speculum Exam - Cervix: normal appearance of the cervix, normal palpation and nontender Bimanual exam- vagina & uterus: normal bimanual exam, normal palpation, uterine size normal, bladder normal to palpation, consistency normal, normal palpation, uterine mobility normal, uterine shape normal, No Cervical tenderness present, non-tender and no cervical motion tenderness Bimanual Exam- Adnexa, other: normal adnexae, no masses, normal and No adnexal tenderness Neuro General: patient oriented x3 Assessment & Plan Assessment & Plan (1) Tubal ligation status: Code(s): Z98.51 - Tubal ligation status Category: Surgical (2) Well woman exam with routine gynecological exam: Code(s): Z01.419 - Encounter for gynecological examination (general) (routine) without abnormal findings Category: Medical (3) Elevated fasting glucose: Code(s): R73.01 - Impaired fasting glucose Category: Medical (4) Cervical cancer screening: Comment: 01/15/2023 Pap is negative. Code(s): Z12.4 - Encounter for screening for malignant neoplasm of cervix Category: Medical (5) Menorrhagia: Comment: See notes. Code(s): N92.0 - Excessive and frequent menstruation with regular cycle Category: Medical (6) Presence of 52 mg levonorgestrel-releasing intrauterine device (IUD): Comment: inserted for menorrhagia 12/11/23. Code(s): Z97.5 - Presence of (intrauterine) contraceptive device Category: Social Hx (7) Morbid obesity: Comment: Patient is losing by combination eating healthier ,fewer sweets, fasting, and smaller portions. Code(s): E66.01 - Morbid (severe) obesity due to excess calories Category: Medical Plan -----Discussed in this visit the following: healthy balanced diet, regular and consistent exercise, getting recommended health screens, doing the best she can for her particular health concerns, kegel exercises, pap smear screening and followup recommendations, mammography screening and SBE, normal changes in cycles in her life stage--- . Reviewed her healthy efforts and the challenges of efforts at weight loss each day. Encouraged to keep going with her efforts she is planning to have a discussion with her primary care provider about he use of weight loss medication to augment her efforts she has her and she was previously noted to have diabetes . Reviewed her history discussed cancers it appears remembers their 50s discussions well about when she starts screening. currently station discharge to start when she is at age 38. Orders: Orders CT NG by PCR Today N89.8 - Other specified noninflammatory disorders of vagina Bacterial Vaginosis Panel Today N89.8 - Other specified noninflammatory disorders of vagina Coding Level of Care Code Est Pt Prev Care [id number]([id number]) Diagnoses Tubal ligation status Z98.51 Well woman exam with routine gynecological exam Z01.419 Elevated fasting glucose R73.01 Cervical cancer screening Z12.4 Menorrhagia N92.0 Presence of 52 mg levonorgestrel-releasing intrauterine device (IUD) Z97.5 Morbid obesity E66.01
== END 2024-04-15 10:57 | disposition home or self-care (01) ==
LOC: HO.HWSM 09:23
PROVIDERS: PCP Internal Medicine; Visit Provider Advanced Practice Midwife
DX: Z01.419 Encounter for gynecological examination (general) (routine) without abnormal findings (principal); R73.01 Impaired fasting glucose; N92.0 Excessive and frequent menstruation with regular cycle; Z97.5 Presence of (intrauterine) contraceptive device; E66.01 Morbid (severe) obesity due to excess calories
CPT/HCPCS: 99395

== ENCOUNTER 2024-04-15 09:23 | Outpatient (REF) | payer OTHER, SELFPAY ==
[2024-04-16 13:07] LABS: Bacterial Vaginosis PCR NEGATIVE (Negative); Candida Group PCR NOT DETECTED (Not Detect); Candida glab krusei PCR NOT DETECTED (Not Detect); Trichomonas vaginalis PCR NOT DETECTED (Not Detect)
[2024-04-16 13:39] LABS: CT PCR NOT DETECTED (Not Detect.); NG PCR NOT DETECTED (Not Detect.)
== END 2024-04-15 09:24 | disposition home or self-care (01) ==
LOC: HO.LAB 09:23
PROVIDERS: PCP Internal Medicine; Visit Provider Advanced Practice Midwife
DX: Z01.419 Encounter for gynecological examination (general) (routine) without abnormal findings (principal); N89.8 Other specified noninflammatory disorders of vagina; Z98.51 Tubal ligation status; R73.01 Impaired fasting glucose; N92.0 Excessive and frequent menstruation with regular cycle; Z97.5 Presence of (intrauterine) contraceptive device; E66.01 Morbid (severe) obesity due to excess calories
CPT/HCPCS: 0352U; 87491; 87591; 99395

== ENCOUNTER 2024-04-21 17:12 | Outpatient (AMB) | payer OTHER, SELFPAY ==
--- NOTE | 2024-04-21 17:16 | A.OFFPC_ITS ---
Vital Signs 04/21/24 17:17 Height 5 ft 5 in Weight 268 lb BMI 44.6 BP 112/70 Blood Pressure Location Lt brachial Position Sitting Intake Visit Reasons: pe Intake Note: Patient here for a physical exam Third Cook Required: No Accompanied by: Self / Same As Patient Allergies No Known Allergies Allergy (Verified 04/21/24 17:44) Medication List - Last Reconciled 04/21/24 by Ashanti Levine MD betamethasone dipropionate 0.05% topical cetirizine 10 mg PO DAILY PRN 90 days ketoconazole 2% topical levonorgestrel (Mirena) intrauterine sennosides (senna) 8.6 mg PO BEDTIME PRN 90 days tacrolimus 0.1% 1 appl topical BID triamcinolone acetonide 0.1% 1 appl topical BID-TID Tobacco use date assessed: 04/21/24 Dental Screening Dental Screen Date: 04/21/24 Did you have a dental visit in the last 12 months?: Yes Did you have a dental problem in the last 6 months where you did not have access to dental care?: No Was dental information given to patient?: Patient has dentist HPI HPI Comments History of Present Illness Details The patient is a 28-year-old female presenting for her physical exam. She also has concerns of obesity and constipation. The patient has a history of morbid obesity with a body mass index (BMI) of 44.6. The patient has not pursued weight management interventions until the present consultation. The patient is interested in exploring non-surgical options for weight management, such as medications that suppress appetite. The patient also reports experiencing constipation, characterized by incomplete bowel movements, which affects her frequency of defecation, approximately once a week, with episodes of feeling not fully relieved. Additionally, the patient has a history of eczema, which is currently managed. In terms of previous gynecological history, the patient underwent two sections and has a status post tubal ligation and is up to date with her Pap Smears and vaccines as well except the flu vaccine which she decline today. - Declined the influenza vaccine. - Tetanus vaccination received in 2020; next due in 2030. - Pap smear conducted last year with nor mal results. - Reassessment for prediabetes status wi th lab tests to be repeated due to prior elevated blood sugar levels. [facility] Medical History Morbid obesity Surgical History Tubal ligation status Hx of section Family History Paternal Grandfather Stroke Paternal Grandmother HTN (hypertension) Maternal Grandfather HTN (hypertension) Diabetes mellitus Mother Uterine cancer Impaired glucose tolerance Maternal Aunt Breast cancer Social History Housing: Apartment Are you a primary assistant child care teacher to a significant other at home: No Do you presently have visiting nurse or other home services: No Alcohol intake: never Patient Tobacco Use Status: Former Tobacco user Tobacco use type: Cigarette Cigarettes Per Day: 4 e-Cigarette/Vaping Use: Never Used Second Hand Smoke Exposure: No service: No Current occupational status: unemployed Gender identity: Female Cognitive needs: No Hearing needs: No Vision needs: No Female Reproductive History Menstrual Age of Menarche: 10 Questionnaire PHQ-9 Over the last 2 weeks, how often have you been bothered by any of the following problems? 1. Little interest or pleasure in doing things: not at all 2. Feeling down, depressed, or hopeless: not at all 3. Trouble falling or staying asleep, or sleeping too much: not at all 4. Feeling tired or having little energy: not at all 5. Poor appetite or overeating: not at all 6. Feeling bad about yourself - or that you are a failure or have let yourself or your family down: not at all 7. Trouble concentrating on things, such as reading the newspaper or watching television: not at all 8. Moving or speaking so slowly that other people could have noticed. Or the opposite - being so fidgety or restless that you have been moving around a lot more than usual: not at all 9. Thoughts that you would be better off or of hurting yourself in some way: not at all Total score: 0 Depression Screening Interpretation: Negative Depression Screening Done: Yes 25558 - PHQ-9 Billing: Yes Source: Developed by Drs. Jose Watts, Kaylin Macias, Isaiah Parra and colleagues, with an educational bina from [employer]. Thrive Questionnaire Date Thrive assessed: 04/14/24 I am a: Patient What is your living situation today?: I have a steady place to live Within the past 12 months, did the food you bought not last and you didn't have the money to get more?: Never true Within the past 12 months, did you worry whether your food would run out before you got money to buy more?: Never true Do you have trouble paying for medicines?: No Do you have trouble getting transportation to medical appointments?: No Do you have trouble paying your heating and electricity bill?: No Do you have trouble taking care of your child, family member or friend?: No Do you have trouble with day-to-day activities such as bathing, preparing meals, shopping, managing finances, etc.?: No Are you currently unemployed and looking for a job?: No Are you interested in more education?: No Please select the resources that you would like help with: None Currently or been in a relationship where the following occur: No concerns reported THRIVE Score: 0 AUDIT C Alcohol Use Questionnaire (AUDIT-C) 1. How often do you have a drink containing alcohol?: Never 3. How often do you have six or more drinks on one occasion?: Never Total Score: 0 Score Reviewed/Action Taken: No ZOË-7 AMB Questionnaire ZOË-7 Date ZOË - 7 assessed: 04/15/23 Feeling nervous, anxious, or on edge: 0 = Not at all Not being able to stop or control worryin = Not at all Worrying too much about different things: 0 = Not at all Trouble relaxin = Not at all Being so restless that it is hard to sit still: 0 = Not at all Becoming easily annoyed or irritable: 0 = Not at all Feeling afraid as if something awful might happen: 0 = Not at all Total ZOË-7 score (0-4 normal; 5-9 mild; 10-14 moderate; 15-21 severe): 0 Source: Developed by Drs. Jose Watts, Kaylin Macias, Isaiah Parra and colleagues, with an educational bina from [employer]. ZOË-7 Assessment Billing ZOË-7 Assessment Tool: ZOË-7 Assessment 07404 Review of Systems Const All systems reviewed & are unremarkable except as noted in HPI and below Card Denies chest pain at rest, Denies chest pain with activity, Denies edema, Denies irregular heart rhythm, Denies claudication, Denies dyspnea, Denies dyspnea on exertion, Denies orthopnea, Denies paroxysmal nocturnal dyspnea and Denies slow heart rate Resp Denies cough, Denies dyspnea and Denies dyspnea on exertion Musc Denies abnormal gait, Denies atrophy, Denies deformity and Denies limited range of motion Skin/Breast Denies bleeding lesions, Denies changing lesions and Denies rash Neuro Denies abnormal gait, Denies behavioral changes and Denies lack of coordination Psych Denies behavioral changes Physical exam (Primary Care) Vital Signs: Last Vital Signs BP 112/70 04/21/24 17:17 BMI result Body Mass Index 44.6 BMI Assessment/Plan discussion: High BMI High, discussed plan: lifestyle, weight reduction, dietary and physical activity Tobacco/Smoking Status: Tobacco use Status Tobacco use date assessed 04/21/24 04/21/24 17:23 Patient Tobacco Use Status Former Tobacco user 04/21/24 17:22 Tobacco use type Cigarette 04/21/24 17:22 e-Cigarette/Vaping Use Never Used 04/21/24 17:22 PHQ-9: PHQ-9 Score PHQ-9: Total score 0 04/21/24 17:50 Depression Screening Interpretation: Negative Thrive Assessment: Date of Thrive Assessment Date Thrive assessed 04/14/24 04/21/24 17:22 Currently or been in a relationship where the following occur: No concerns reported [facility] Head: Yes normal to inspection, Yes normocephalic and Yes atraumatic Ears: external ears normal Eyes General: appearance normal, both eyes and all related structures Eyelids: Yes eyelids normal Conjunctivae: conjunctivae normal Neck Neck: Yes normal visual inspection and Yes supple Resp Effort & Inspection: normal respiratory effort Auscultation: clear to auscultation bilaterally Cardio Jugular venous distension: no JVD Rate: regular rate Rhythm: regular rhythm Heart sounds: S1 normal heart sound present and S2 normal heart sound present GI Inspection: Yes normal to inspection Palpation (GI): Soft to palpation and nontender Auscultation: normal bowel sounds Skin General skin exam: no rashes or lesions noted Neuro General: no focal motor deficits Extrem General: Yes full ROM Psych Appearance: grossly normal Office Procedures Flu Questionnaire Does the patient have a severe egg allergy?: No Immunizations Fluarix Triv [id number] (PF) 45 mcg (15 mcg x 3)/0.5 mL IM syringe Performing Provider: Ashanti Levine MD [place] [facility] [place] [facility] Documented (not given) by: BRITNI Garcia on 04/21/24 17:24 Reason Not Given: Patient Refused Coding Level of Care Code Est Pt Level 3 (61555) Est Pt Prev Care 18-39y(72721) Diagnoses Physical exam Z00.00 Chronic idiopathic constipation K59.04 Morbid obesity E66.01 Additional Codes ZOË-7 Assessment Billing - ZOË-7 Assessment Tool: ZOË-7 Assessment 84665 ([id number]) PHQ-9 - 89048 - PHQ-9 Billing: Yes ([id number]) Time Spent (min) 34 Assessment & Plan Assessment & Plan (1) Physical exam: Code(s): Z00.00 - Encounter for general adult medical examination without abnormal findings Category: Medical (2) Chronic idiopathic constipation: Code(s): K59.04 - Chronic idiopathic constipation Category: Medical (3) Morbid obesity: Comment: Patient is losing by combination eating healthier ,fewer sweets, fasting, and smaller portions. Code(s): E66.01 - Morbid (severe) obesity due to excess calories Category: Medical Plan - Initiate laboratory tests to reassess blood sugar levels for prediabetes monitoring. - Prescribe Wegovy injections for weight management, with the possibility to switch to Zepbound if not covered by the insurance. - Recommend a dietary change focusing on protein intake with no sugar, and water as the primary beverage. - Prescribe a fiber supplement to alleviate constipation. - Monitor for potential side effects from weight management medication, including nausea, vomiting, diarrhea, and risk of pancreatitis. Patient was informed and verbally consented to the use of an ambient scribe for clinic note documentation during this visit. We discussed the management of the patient?s obesity, including the use of Wegovy injections as a method to suppress appetite. The importance of adherence to a protein-focused diet with minimal sugar was emphasized. The potential side effects of the medication, such as gastrointestinal disturbances and rare pancreatitis, were explained to the patient. We also talked about the implications of her prediabetic status and the need for repeat laboratory tests to monitor her blood sugar levels. The patient understood and agreed to the treatment plan, and anticipatory guidance was provided, including dietary modifications and symptoms that warrant further medical evaluation. Orders: Orders Comprehensive [place]. Panel Fast 04/21/24 Z00.00 - Encounter for general adult medical examination without abnormal findings Influenza [id number] Immunization 04/21/24 Z23 - Encounter for immunization Lipid Panel 04/21/24 Z00.00 - Encounter for general adult medical examination without abnormal findings Medications: New polyethylene glycol 3350 17 grams PO DAILY PRN 510 grams 3RF constipation 30 days K59.04 - Chronic idiopathic constipation docusate calcium 240 mg PO BID 60 caps 1RF 30 days semaglutide (weight loss) ([employer]) administer weeks 1 through 4 of therapy 0.25 mg (0.5 mL) subcut QWEEK 2 mL 0RF 4 weeks E66.01 - Morbid (severe) obesity due to excess calories Refilled cetirizine 10 mg PO DAILY PRN 90 tabs 0RF allergy symptoms 90 days Discontinued sennosides (senna) Discontinued Reason: Order 8.6 mg PO BEDTIME 90 days PRN 90 tabs 0RF constipation Patient Instructions: - Take the prescribed medication as directed, and track weight and any side effects. - Follow a diet high in protein and low in sugar, with water as the primary beverage. - Use the fiber supplement as directed if experiencing constipation. - Monitor for any severe side effects, such as persistent nausea or vomiting, and seek medical attention if these occur. - Return for follow-up labs within the specified timeframe to reassess blood sugar levels.
[2024-04-21 17:17] VITALS: BP 112/70; BMI 44.6
== END 2024-04-21 17:46 | disposition home or self-care (01) ==
PROVIDERS: PCP Internal Medicine; Visit Provider Internal Medicine
DX: Z23 Encounter for immunization (principal)

== ENCOUNTER → 2024-04-21 17:12 | Outpatient (BNVA) | payer OTHER, SELFPAY | PROVIDERS: PCP Internal Medicine; Visit Provider Internal Medicine | DX: Z00.00 Encounter for general adult medical examination without abnormal findings (principal); K59.04 Chronic idiopathic constipation; E66.01 Morbid (severe) obesity due to excess calories | CPT/HCPCS: 90471; 96127; 99212; 99395 ==

== ENCOUNTER 2024-04-22 06:57 | Outpatient (REF) | payer OTHER, SELFPAY ==
[2024-04-22 08:33] LABS: Albumin Level 3.9 g/dL (3.5-5.0); Anion Gap 13 (12-20); Aspartate Amino Transferase 21 U/L (5-31); Bilirubin Total 0.8 mg/dL (0.0-1.0); Blood Urea Nitrogen 12 mg/dL (9-16); Calcium 9.3 mg/dL (8.4-10.2); Carbon Dioxide 26 mmol/L (22-29); Chloride 106 mmol/L (96-108); Cholesterol 128 mg/dL (<200); Estimated Glomerular Filt Rate > 60; Glucose Fasting 113 mg/dL (60-99); HDL Cholesterol 30 mg/dL (>40); LDL Cholesterol Calculated 75 mg/dL (<100); Potassium 3.9 mmol/L (3.3-5.1); Sodium 141 mmol/L (135-145); Total Protein 6.8 g/dL (6.5-8.0); Triglycerides 117 mg/dL (<150)
[2024-04-22 08:52] LABS: Alanine Aminotransferase 13 U/L (0-31); Alkaline Phosphatase 45 U/L (39-117)
== END 2024-04-22 06:58 | disposition home or self-care (01) ==
LOC: HO.LAB 06:57
PROVIDERS: PCP Internal Medicine; Visit Provider Internal Medicine
DX: Z00.00 Encounter for general adult medical examination without abnormal findings (principal)
CPT/HCPCS: 36415; 80053; 80061

== ENCOUNTER 2024-06-01 06:47 | Outpatient (REF) | payer OTHER, SELFPAY ==
[2024-06-01 07:41] LABS: Alanine Aminotransferase 18 U/L (0-31); Albumin Level 4.1 g/dL (3.5-5.0); Alkaline Phosphatase 44 U/L (39-117); Anion Gap 12 (12-20); Aspartate Amino Transferase 23 U/L (5-31); Bilirubin Total 1.5 mg/dL (0.0-1.0); Blood Urea Nitrogen 8 mg/dL (9-16); Calcium 9.6 mg/dL (8.4-10.2); Carbon Dioxide 25 mmol/L (22-29); Chloride 109 mmol/L (96-108); Estimated Glomerular Filt Rate > 60; Glucose Fasting 95 mg/dL (60-99); Potassium 3.7 mmol/L (3.3-5.1); Sodium 142 mmol/L (135-145); Total Protein 7.5 g/dL (6.5-8.0)
== END 2024-06-01 06:48 | disposition home or self-care (01) ==
LOC: HO.LAB 06:47
PROVIDERS: PCP Internal Medicine; Visit Provider Internal Medicine
DX: R73.01 Impaired fasting glucose (principal)
CPT/HCPCS: 36415; 80053

== ENCOUNTER → 2024-06-08 08:22 | Outpatient (BNVA) | payer OTHER, SELFPAY | PROVIDERS: PCP Internal Medicine; Visit Provider Surgery ==

== ENCOUNTER 2024-06-10 07:55 | Outpatient (AMB) | payer OTHER, SELFPAY ==
--- OUTSIDE RECORDS SUMMARY | 2024-06-10 07:58 | XMS_ITS | Clinical Summary ---
Author Organization [facility] Address [address] [place] [address] Care Team Providers Care Retail Sales Associate Bilingual Name Role Phone Rommel Maldonado MD Primary Care Provider [phone] Surgical History Surgery Date Site/Laterality Comments OTHER SURGICAL HISTORY PROCEDURE: DENIES PREVIOUS SURGERY SECTION 04/14/2016 PROCEDURE: HISTORICAL Medical History Medical History Date Comments Morbid obesity (CMS/HCC) DX:Morb id obesity (HCC) Family History Medical History Relation Name Comments Diabetes Maternal Grandfather Breast cancer Maternal Grandmother diagno sed in her 50s, thyroid Heart attack Paternal Grandfather Asthma Paternal Grandmother thyroid Relation Name Status Comments Brother Alive X1 Father Alive Maternal Grandfather Alive Maternal Grandmother Mother Alive Paternal Grandfather Alive Paternal Grandmother Alive Sister Alive X2 Social History Tobacco Use Types Packs/Day Years Used Date Smoking Tobacco: Never Smokeless Tobacco: Never Alcohol Use Standard Drinks/Week Comments No 0 (1 standard drink = 0.6 oz pur e alcohol) Sex and Gender Information Value Date Recorded Sex Assigned at Not on file Gender Identity Not on file Sexual Orientation Not on file Obstetrics History Plan of Treatment Health Maintenance Due Date Last Done Comments DTaP,Tdap,and Td Vaccines (1 - Tdap) 2012 Hepatitis B Vaccines (1 of 3 - 19+ 3-dose series) 2012 Cervical Cancer Screening: P ap Smear 2014 COVID-19 Vaccine (2023-2 5 season) 2024 Influenza Vaccine (#1) 2024 HIB Vaccines Aged Out No longer eligi ble based on patient's age to complete this topic HPV Vaccines Aged Out No longer eligi ble based on patient's age to complete this topic Hepatitis A Vaccines Aged Out No long er eligible based on patient's age to complete this topic IPV Vaccines Aged Out No longer eligi ble based on patient's age to complete this topic MMR Vaccines Aged Out No longer eligi ble based on patient's age to complete this topic Meningococcal ACWY Vaccine Aged Out N o longer eligible based on patient's age to complete this topic Pneumococcal Vaccine: Pediat rics (0 to 5 Years) and At-Risk Patients (6 to 64 Years) Aged Out No longer eligible b ased on patient's age to complete this topic RSV Immunization Patients Un edie 20 months Aged Out No longer eligible b ased on patient's age to complete this topic Varicella Vaccines Aged Out No longer eligible based on patient's age to complete this topic Care Teams Retail Sales Associate Bilingual Relationship Specialty Start Date End Date Rommel Maldonado MD [address] [place] [address] Drive [address] [place] [address] PCP - General Internal Medicine 08/10/20
--- NOTE | 2024-06-10 08:11 | A.OFFVIS_ITS ---
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 Allergies No Known Allergies Allergy (Verified 06/10/24 08:11) Medication List - Last Reconciled 06/10/24 by Madhu García MD betamethasone dipropionate 0.05% topical cetirizine 10 mg PO DAILY PRN 90 days docusate calcium 240 mg PO BID 30 days ketoconazole 2% topical levonorgestrel (Mirena) intrauterine polyethylene glycol 3350 17 grams PO DAILY PRN 30 days semaglutide (weight loss) ([employer]) 1 mg (0.5 mL) subcut Q7D 4 weeks tacrolimus 0.1% 1 appl topical BID triamcinolone acetonide 0.1% 1 appl topical BID-TID HPI HPI 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: Details: Start time: 8.00am, End time: 8.48am ?I spent 43 minutes speaking with the patient on the phone plus an additional 5 minutes reviewing and updating records for a total of 48 minutes HPI Comments Details: Previous weight loss efforts: Garland[place] (31 lbs) Wakes up: 4am, Sleeps: 7pm Breakfast: 5.30am [employer] premade Lunch: 1pm (salad with chicken) Dinner: 5.30pm (rice, chicken, protein pasta, salmon) Snacks: 10am (fruit), 3pm (Clean protein bar 15gr) Exercise: Gym x5/wk (bike for 10min, treadmill for 30min, and weight exercises) Fluids: Coffee: none, tea: none, soda: none, juice: Cystal light, ETOH: none PFSH Medical History (Updated 06/10/24 @ 08:40 by Madhu García MD) BMI 39.0-39.9,adult Obesity Eczema Morbid obesity Surgical History Tubal ligation status Hx of section Family History (Updated 06/08/24 @ 08:51 by Felicia Colon, MANAGER [employer]) Paternal Grandfather Stroke Paternal Grandmother HTN (hypertension) Maternal Grandfather HTN (hypertension) Diabetes mellitus Mother Uterine cancer Impaired glucose tolerance Maternal Aunt Breast cancer Son Autism ADHD Daughter Autism Social History Housing: Apartment Are you a primary home care administrator to a significant other at home: No Do you presently have visiting nurse or other home services: No Alcohol intake: never Patient Tobacco Use Status: Former Tobacco user Tobacco use type: Cigarette Cigarettes Per Day: 4 e-Cigarette/Vaping Use: Never Used Second Hand Smoke Exposure: No service: No Current occupational status: unemployed Gender identity: Female Cognitive needs: No Hearing needs: No Vision needs: No Female Reproductive History Menstrual Age of Menarche: 10 Telehealth Telehealth Telehealth Platform: Telephone Location of provider rendering services: practice address Location of patient: address on file Patient Identification confirmed using: Name, : Yes Telehealth method: voice only Patient verbally consented to treatment: Yes Patient verbally consented to billing insurance company: Yes Patient informed of any privacy concerns related to visit: Yes Minutes spent on Phone/Video with Pt.: 48 Assessment & Plan Assessment & Plan (1) Obesity: Code(s): E66.9 - Obesity, unspecified Category: Medical Qualifiers: Obesity type: due to excess calories Obesity classification: adult class 2 (BMI 35 - 39.9) Serious obesity comorbidity presence: without serious comorbidity Body mass index: BMI 39.0-39.9 Qualified Code(s): E66.812 - Obesity, class 2; E66.09 - Other obesity due to excess calories; Z68.39 - Body mass index [BMI] 39.0-39.9, adult Plan: 1.? Please send me weight measurements as soon as possible from your body composition scale and then once a week. 2. Continue your present work-out plan and try to focus on tracking the calories you burn on treadmill and bike 3. Replace the [employer] premade shake with 6 oz [employer] and 6 oz of low fat unsweetened almond milk 4. Goal is to lose at least 1.5-2lbs per week 5. Goal to lose at least another 10% of your weight, which is about 23lbs. Weight goal: 214lbs 6. I ordered a medication to help you with the weight loss which is called Zepbound. My office will try to authorize it. Please let me know when you receive it. Common side effects include nausea, vomiting, constipation, diarrhea, abdominal pain. Please let me know if you develop any of these symptoms. 7. Continue to use the AFreeze tanner to track your daily calorie consumption and try not to exceed 1400 calories per day Medications: New tirzepatide (weight loss) (Zepbound) 7.5 mg (0.5 mL) subcut QWEEK 2 mL 0RF E66.01 - Morbid (severe) obesity due to excess calories
[2024-06-10 08:32] VITALS: BMI 39.5
== END 2024-06-10 08:48 | disposition home or self-care (01) ==
LOC: HO.HBS 07:55
PROVIDERS: PCP Internal Medicine; Visit Provider Surgery
DX: E66.812 Obesity, class 2 (principal); E66.09 Other obesity due to excess calories; Z68.39 Body mass index [BMI] 39.0-39.9, adult
CPT/HCPCS: 99204

== ENCOUNTER → 2024-06-10 07:55 | Outpatient (BNVA) | payer OTHER, SELFPAY | PROVIDERS: PCP Internal Medicine; Visit Provider Surgery ==

== ENCOUNTER 2024-06-17 06:57 | Outpatient (REF) | payer OTHER, SELFPAY ==
--- OUTSIDE RECORDS SUMMARY | 2024-06-17 07:00 | XMS_ITS | Clinical Summary ---
Author Organization [facility] Address [address] [place] [address] Care Team Providers Care Phlebotomy Specialist Name Role Phone Rommel Maldonado MD Primary Care Provider [phone] Surgical History Surgery Date Site/Laterality Comments OTHER [...] age to complete this topic Care Teams Phlebotomy Specialist Relationship Specialty Start Date End Date Rommel Maldonado MD [address] [place] [address] Drive [address] [place] [address] PCP - General Internal Medicine 08/10/20
[2024-06-17 07:15] LABS: MANUAL DIFF FLAG NO
[2024-06-17 07:40] LABS: Basophils Percent Auto 0.4 % (0-2); Eosinophils Absolute Auto 0.2 X10*3/uL (0.0-0.4); Eosinophils Percent Auto 2.8 % (0-4); Hematocrit 37.3 % (37.0-47.0); Hemoglobin 11.8 g/dl (12.0-16.0); Imm Gran Abs Auto 0.01 X10*3/uL (0.00-0.03); Imm Gran Pct Auto 0.2 % (0.0-0.4); Lymphocytes Absolute Auto 1.5 X10*3/uL (1.2-4.9); Lymphocytes Percent Auto 27.3 % (20-40); Mean Corpuscular HGB Conc 31.6 g/dl (31.0-35.0); Mean Corpuscular Hemoglobin 25.4 pg (27.0-33.0); Mean Corpuscular Volume 80.4 fL (80.0-98.0); Mean Platelet Volume 11.6 fL (9.4-12.3); Monocytes Absolute Auto 0.6 X10*3/uL (0.1-1.2); Monocytes Percent Auto 10.8 % (2-11); Neutrophils Absolute Auto 3.2 x10*3/uL (2.0-8.3); Neutrophils Percent Auto 58.5 % (45-73); Platelet Count 275 X10*3/uL (160-400); Red Blood Count 4.64 X10*6/uL (4.20-5.50); Red Cell Distribution Width 16.3 % (11.0-16.0); White Blood Count 5.4 X10*3/uL (4.8-10.8)
[2024-06-17 07:49] LABS: Estimated Average Glucose 108 mg/dL; Hemoglobin A1C 109.3914 umol/L; Hemoglobin A1c % 5.4 % (<6.0); Total Hemoglobin (HGBA1C) 3117.3613 umol/L
[2024-06-17 08:13] LABS: Alanine Aminotransferase 20 U/L (0-31); Albumin Level 4.3 g/dL (3.5-5.0); Alkaline Phosphatase 44 U/L (39-117); Anion Gap 11 (12-20); Aspartate Amino Transferase 25 U/L (5-31); Bilirubin Total 1.5 mg/dL (0.0-1.0); Blood Urea Nitrogen 11 mg/dL (9-16); C Reactive Protein 1.06 mg/dL (< or = 0.50); Calcium 9.5 mg/dL (8.4-10.2); Carbon Dioxide 23 mmol/L (22-29); Chloride 108 mmol/L (96-108); Cholesterol 124 mg/dL (<200); Estimated Glomerular Filt Rate > 60; Glucose Random 91 mg/dL (60-115); HDL Cholesterol 32 mg/dL (>40); Iron 36 mcg/dL (30-160); LDL Cholesterol Calculated 80 mg/dL (<100); Percent Iron Saturation 12 % (15-50); Sodium 138 mmol/L (135-145); Total Iron Binding Capacity 293 mcg/dL (228-428); Total Protein 7.6 g/dL (6.5-8.0); Triglycerides 64 mg/dL (<150); Unsaturated Iron Binding 257 ug/dL
[2024-06-17 08:39] LABS: Ferritin 17 ng/mL (10-122); TSH reflex Free T4 2.58 uIU/mL (0.32-4.0); Vitamin D 25-OH Total 12.7 ng/mL (>30)
[2024-06-17 08:40] LABS: Insulin 14 uU/mL (2-29)
[2024-06-17 08:43] LABS: Folate 9.1 ng/mL (> or = 4.0); Vitamin B12 262 pg/mL (200-900)
[2024-06-21 01:22] LABS: Zinc 72 mcg/dL (60-130)
[2024-06-22 02:04] LABS: Vitamin A 26 mcg/dL (38-98)
[2024-06-23 17:18] LABS: Vitamin B1 8 nmol/L (8-30)
== END 2024-06-17 06:58 | disposition home or self-care (01) ==
LOC: HO.LAB 06:57
PROVIDERS: PCP Internal Medicine; Visit Provider Surgery
DX: E66.812 Obesity, class 2 (principal); E66.09 Other obesity due to excess calories; Z68.39 Body mass index [BMI] 39.0-39.9, adult; R73.01 Impaired fasting glucose
CPT/HCPCS: 36415; 80053; 80061; 82306; 82607; 82728; 82746; 83036; 83525; 83540; 84425; 84443; 84590; 84630; 85025; 86140

== ENCOUNTER 2024-06-21 05:12 | Emergency (ER) | payer OTHER, SELFPAY ==
--- NOTE | ~2024-06-21 | CT_ITS ---
EXAMINATION: CT ABDOMEN PELVIS WITHOUT IV CONTRAST HISTORY: periumbilical abd pain COMPARISON: Comparison is made with the prior examination dated 07/25/2016. TECHNIQUE: CT scan of the abdomen and pelvis was performed without contrast using standard departmental protocol. Coronal and sagittal reformatted images were generated and reviewed. Oral contrast material was not administered at the request of the referring physician. This CT exam was performed with one or more of the following dose reduction techniques: automated exposure control, adjustment of the mA and/or kV according to patient size, use of iterative reconstruction technique. DLP: 766 mGy-cm FINDINGS: LOWER CHEST: The visualized lung bases are clear. There is no pleural effusion. CARDIOVASCULATURE: The heart is normal in size. There is no pericardial effusion. LIVER: The liver is normal in size and contour. The liver has an unremarkable unenhanced appearance. GALLBLADDER / BILE DUCTS: The gallbladder is unremarkable. There is no intra or extrahepatic biliary ductal dilatation. SPLEEN: The spleen is normal in size and has an unremarkable unenhanced appearance. PANCREAS: The pancreas has an unremarkable unenhanced appearance. ADRENAL GLANDS: Unremarkable. KIDNEYS/RETROPERITONEUM: No renal calculi are identified. There is no hydronephrosis. LYMPH NODES: No retroperitoneal lymphadenopathy is identified in the abdomen or pelvis. VASCULATURE: The abdominal aorta is normal in caliber. MESENTERY/PERITONEUM: No free fluid. No masses. There is no free intraperitoneal gas. STOMACH: The stomach is collapsed, limiting evaluation. SMALL BOWEL: The small bowel is normal in caliber. COLON: There is fluid throughout the colon. APPENDIX: Normal. URINARY BLADDER/PELVIC ORGANS: The urinary bladder is collapsed, limiting evaluation. There is an IUD in the lower uterine segment. There is a 2.3 cm rounded hyperdense structure in the right adnexa which may represent a hemorrhagic ovarian cyst. The left ovary is unremarkable. BONES / SOFT TISSUES: No suspicious bony or soft tissue abnormalities. CT/CT abdomen pelvis wo IV con IMPRESSION: 1. Fluid throughout the colon, which can be seen in the setting of gastroenteritis. Clinical correlation is recommended. 2. Abnormally positioned IUD in the lower uterine segment. 3. 2.3 cm rounded hyperdense structure in the right adnexa may represent a hemorrhagic cyst. This could be confirmed with ultrasound if indicated. Electronically signed by: Jose Cota MD 06/21/2024 10:09 AM [facility]
[2024-06-21 05:15] VITALS: BP 104/60; PULSE 77; RESP 19; TEMP 36.6; O2SAT 96; BMI 38.9
[2024-06-21 05:33] LABS: Basophils Percent Auto 0.5 % (0-2); Eosinophils Absolute Auto 0.3 X10*3/uL (0.0-0.4); Eosinophils Percent Auto 4.2 % (0-4); Hemoglobin 11.9 g/dl (12.0-16.0); Imm Gran Abs Auto 0.01 X10*3/uL (0.00-0.03); Imm Gran Pct Auto 0.2 % (0.0-0.4); Lymphocytes Absolute Auto 1.2 X10*3/uL (1.2-4.9); Lymphocytes Percent Auto 19.9 % (20-40); MANUAL DIFF FLAG NO; Mean Corpuscular HGB Conc 32.2 g/dl (31.0-35.0); Mean Corpuscular Hemoglobin 25.9 pg (27.0-33.0); Mean Corpuscular Volume 80.6 fL (80.0-98.0); Mean Platelet Volume 11.1 fL (9.4-12.3); Monocytes Absolute Auto 0.6 X10*3/uL (0.1-1.2); Monocytes Percent Auto 9.1 % (2-11); Neutrophils Absolute Auto 4.1 x10*3/uL (2.0-8.3); Neutrophils Percent Auto 66.1 % (45-73); Platelet Count 290 X10*3/uL (160-400); Red Blood Count 4.59 X10*6/uL (4.20-5.50); Red Cell Distribution Width 16.5 % (11.0-16.0); White Blood Count 6.2 X10*3/uL (4.8-10.8)
[2024-06-21 05:36] LABS: Bacteria Urine None Seen (None Seen); Hyaline Casts Urine 0-2 /LPF (0-2); RBC Urine >20 /HPF (0-2); WBC Urine 0-5 /HPF (0-5)
[2024-06-21 05:46] LABS: Appearance Urine Cloudy; Color Urine Yellow; Glucose Urine UA Negative (Negative); Leukocyte Esterase Urine Trace (Negative); Nitrite Urine Negative (Negative); PH 5.5 (5.0-9.0); UMIC TRIGGER UACC YES; Urine Blood Large (3+) (Negative); Urine Ketones Trace mg/dL (Negative); Urine Protein Trace mg/dL (Neg-Trace)
[2024-06-21 05:55] LABS: Alanine Aminotransferase 28 U/L (0-31); Alkaline Phosphatase 44 U/L (39-117); Anion Gap 11 (12-20); Aspartate Amino Transferase 30 U/L (5-31); Bilirubin Direct 0.3 mg/dL (0.0-0.5); Blood Urea Nitrogen 8 mg/dL (9-16); Calcium 8.9 mg/dL (8.4-10.2); Carbon Dioxide 22 mmol/L (22-29); Chloride 112 mmol/L (96-108); Creatinine Clr Calc Pharmacy 134.5; Estimated Glomerular Filt Rate > 60; Glucose Random 107 mg/dL (60-115); HCG Quantitative < 2 mIU/mL; Lipase 46 U/L (8-78); Potassium 3.8 mmol/L (3.3-5.1); Sodium 141 mmol/L (135-145); Total Protein 7.4 g/dL (6.5-8.0)
[2024-06-21 06:07] VITALS: BP 96/67; PULSE 84; RESP 22; TEMP 36.1; O2SAT 100
[2024-06-21] MEDS: Ondansetron ODT 4 MG TAB.RAPDIS TRANSLINGU (06:09)
--- NOTE | 2024-06-21 06:09 | PC.NURSE ---
Pt with c/o of increased pain and sob r/t to that. also c/o of vomiting in the bathroom. zofran given. vitals retaken. similar to arrival vitals.
--- NOTE | 2024-06-21 08:53 | ED.ABDPAIN ---
HPI - Abdominal Pain General Chief Complaint: Abdominal Pain Stated Complaint: n/v/d Time Seen by Provider: 06/21/24 08:51 Source: patient Mode of arrival: ambulatory Limitations: no limitations History of Present Illness ED Provider: SHARRON MEYERS PA-C HPI narrative: 28 year old female with pmhx significant for eczema, iron deficiency anemia, and vitamin b12 deficiency presents to the ED today for evaluation of nausea, nonbloody vomiting/diarrhea, and abdominal pain since last night. Her abdominal pain is localized to periumbilical region. No radiation. She states it has slowly been improving since last night however still present. She last vomited 1 hour prior to my evaluation which improved with zofran provided by triage. Her last episode of diarrhea was a few hours ago. She did not take any OTC medications [employer] in ED. Her sister is ill with similar symptoms. Reports recent treatment of strep throat with one course of antibiotics. She is currently on her menstrual period (06/19/24). Abdominal surgeries includes c sxn and tubal ligation. Related Data Home Medications ?Medication ?Instructions ?Recorded ?Confirmed triamcinolone acetonide 0.1 % 1 appl topical BID-TID 04/15/23 06/10/24 topical cream levonorgestrel 21 mcg/24 hr (up to intrauterine 03/10/24 06/10/24 8 years) 52 mg intrauterine device (Mirena) betamethasone dipropionate 0.05 % topical 04/21/24 06/10/24 topical ointment ketoconazole 2 % shampoo topical 04/21/24 06/10/24 tacrolimus 0.1 % topical ointment 1 appl topical BID 04/21/24 06/10/24 Previous Rx's ?Medication ?Instructions ?Recorded cetirizine 10 mg tablet 10 mg PO DAILY PRN allergy 04/21/24 symptoms 90 days #90 tabs docusate calcium 240 mg capsule 240 mg PO BID 30 days #60 caps 04/21/24 polyethylene glycol 3350 17 17 g PO DAILY PRN constipation 30 04/21/24 gram/dose oral powder days #510 grams semaglutide (weight loss) 1 mg/0.5 1 mg (0.5 mL) subcut Q7D 4 weeks 05/30/24 mL subcutaneous pen injector #2 mL (Reji) tirzepatide (weight loss) 7.5 7.5 mg (0.5 mL) subcut QWEEK #2 mL 06/10/24 mg/0.5 mL subcutaneous pen injector (Zepbound) tirzepatide (weight loss) 2.5 2.5 mg (0.5 mL) subcut QWEEK #2 mL 06/13/ mg/0.5 mL subcutaneous pen injector (Zepbound) cholecalciferol (vitamin D3) 125 125 mcg PO DAILY #90 caps 06/17/24 mcg (5,000 unit) capsule iron,carbonyl 65 mg-vitamin C 125 1 tab PO DAILY #90 tabs 06/17/24 mg tablet,delayed release (Vitron-C) mecobalamin (vitamin B12) 1,000 1,000 mcg sublingual DAILY #90 tabs 06/17/24 mcg disintegrating tablet,sublingual loperamide 2 mg tablet (Imodium 2 mg PO Q6H PRN loose stool 2 days 06/21/24 A-D) #8 tabs ondansetron 4 mg disintegrating 4 mg PO DAILY PRN nausea and 06/21/24 tablet vomiting 5 days #7 tabs Allergies Allergy/AdvReac Type Severity Reaction Status Date / Time No Known Allergies Allergy Verified 06/21/24 05:16 Review of Systems Review of Systems Constitutional: No fever, chills, fatigue, night sweats, weight changes ENT/Mouth: No ear pain, hearing loss, nasal congestion, sinus pain, rhinorrhea, sore throat Eyes: No eye pain, swelling, redness, vision changes, discharge Cardio: No chest pain, palpitations, CHUNG, orthopnea, peripheral edema Pulm: No SOB, cough, sputum, wheezing, dyspnea, hemoptysis GI: No hematemesis, constipation, hematochezia, melena, +abd pain, +N/V/D : No irregular bleeding, dysuria, frequency, urgency, hesitancy, hematuria, flank pain, urinary flow changes, urinary incontinence or retention MSK: No back pain, neck pain, joint pain, myalgias Skin: No lesions, rashes Neuro: No weakness, numbness, paresthesias, LOC, dizziness, headache Psych: No anxiety/panic, depression, SI/HI, AH/VH All other systems reviewed and are negative. [facility] Past Medical History Attestation statement: The following information was validated with the patient. Source: old records reviewed and nursing notes reviewed Medical History BMI 39.0-39.9,adult Obesity Eczema Morbid obesity Surgical History Tubal ligation status Hx of section Family History Family History Paternal Grandfather Stroke Paternal Grandmother HTN (hypertension) Maternal Grandfather HTN (hypertension) Diabetes mellitus Mother Uterine cancer Impaired glucose tolerance Maternal Aunt Breast cancer Son Autism ADHD Daughter Autism Social History Social History Housing: Apartment Are you a primary director career to a significant other at home: No Do you presently have visiting nurse or other home services: No Alcohol intake: never Patient Tobacco Use Status: Former Tobacco user Tobacco use type: Cigarette Cigarettes Per Day: 4 e-Cigarette/Vaping Use: Never Used Second Hand Smoke Exposure: No Advance Directives: No Advance Directives Information Provided: Yes Do you have a plan to hurt others: No Plan service: No Current occupational status: unemployed Gender identity: Female Cognitive needs: No Hearing needs: No Vision needs: No Physical Exam ED Vital Signs: Vital Signs - 24 hr 06/21/24 05:15 06/21/24 06:07 06/21/24 09:44 Temperature 97.9 F 97.0 F Pulse Rate 77 84 60 Respiratory Rate 19 22 H 16 Blood Pressure 104/60 96/67 115/67 Pulse Oximetry 96 100 Oxygen Delivery Method Room Air Room Air Room Air BMI result Body Mass Index 38.9 vital signs stable, afebrile General: Well appearing, in no acute distress. Skin: Warm, dry, intact. No rashes or lesions. Head: Normocephalic, atraumatic. EENT: Hearing is intact b/l. Conjunctiva clear. PERRLA. EOM intact. Moist mucous membranes.? Neck: Supple without LAD Cardiac: Chest wall symmetric. RRR. Lungs: Normal respiratory effort without accessory muscle use. CTA bilaterally. Abdomen: obese, soft, non-tender, non-distended. No rebound tenderness or guarding. Positive BS x4. no cvat. Back: No midline spinous or paraspinal tenderness. No step off deformity. Ext: Upper and lower extremities atraumatic, without tenderness, deformity, swelling or erythema Neuro: AOx3. Normal speech. Ambulating with steady gait. Course Course Course Narrative: 921 -- CBC without leukocytosis or left shift. Chemistry without acute electrolyte abnormality requiring intervention. No SEAN. Liver function baseline. Lipase WNL. Beta hCG undetectable. Not . Urine does not demonstrate infection. Large amount of blood/RBCs consistent with current menstrual period. patient received zofran w/ improvement in nausea. toradol ordered for pain control. no further episodes of vomiting. CT A/P pending. 1038 -- CT A/P shows fluid throughout the colon which is consistent with a gastroenteritis. Also incidental finding 2.3 cm rounded hyperdense structure in the right adnexa question cyst. I did discuss all workup results with patient. On re-evaluation, she feels much better after receiving Zofran and Toradol. She tells me that she has a history of PCOS and has been diagnosed with ovarian cyst in the past. She is not having any pain to her right lower quadrant and there is no tenderness to palpation of right lower quadrant. Unlikely the cause of patient's symptoms. I do not have concern for ovarian torsion or cystic rupture. > will treat symptomatically for gastroenteritis. Zofran and Imodium sent to pharmacy. She is well-appearing. Advised to follow up with OBGYN regarding ovarian cyst. She verbalizes understanding. Patient has remained stable throughout ED visit today. Discussed worrisome signs and symptoms and when to return to the ED. All questions answered at this time. Patient is agreeable with disposition and stable for discharge. Medical Decision Making Medical Decision Making [facility] Narrative: 28 year old female with pmhx significant for eczema, iron deficiency anemia, and vitamin b12 deficiency presents to the ED today for evaluation of nausea, nonbloody vomiting/diarrhea, and abdominal pain since last night. vital signs are stable. she is nontoxic appearing and in NAD. on exam, abdomen obese, soft, non-tender, non-distended. No rebound tenderness or guarding. Positive BS x4. no cvat. Differential diagnoses: appendicitis, diverticulitis, diverticulosis, UTI, gastroenteritis Abdominal exam without peritoneal signs. No evidence of acute abdomen at this time. She is well appearing. Low suspicion for acute hepatobiliary disease (including acute cholecystitis), acute infectious processes (pneumonia, hepatitis, pyelonephritis, PID, TOA), vascular catastrophe, bowel obstruction or viscus perforation, ovarian cyst/ rupture/ torsion, ectopic. Presentation not consistent with other acute, emergent causes of abdominal pain at this time. Plan: labs, UA, CT AP, zofran, serial reassessment Differential Diagnosis Differential Diagnoses: The differential diagnosis associated with the presentation includes as above. Admission/Observation not indicated. Lab Data MDM Lab Attestation statement: I reviewed the patient's lab results. as above. 06/21/24 05:24 06/21/24 05:24 Labs: Lab Results 06/21/24 Range/Units 05:24 WBC 6.2 (4.8-10.8) X10*3/uL RBC 4.59 (4.20-5.50) X10*6/uL Hgb 11.9 L (12.0-16.0) g/dl Hct 37.0 (37.0-47.0) % MCV 80.6 (80.0-98.0) fL MCH 25.9 L (27.0-33.0) pg MCHC 32.2 (31.0-35.0) g/dl RDW 16.5 H (11.0-16.0) % Plt Count 290 (160-400) X10*3/uL MPV 11.1 (9.4-12.3) fL Immature Gran % (Auto) 0.2 (0.0-0.4) % Neut % (Auto) 66.1 (45-73) % Lymph % (Auto) 19.9 L (20-40) % [place] % (Auto) 9.1 (2-11) % Eos % (Auto) 4.2 H (0-4) % Baso % (Auto) 0.5 (0-2) % Lymph # (Auto) 1.2 (1.2-4.9) X10*3/uL [place] # (Auto) 0.6 (0.1-1.2) X10*3/uL Eos # (Auto) 0.3 (0.0-0.4) X10*3/uL Baso # (Auto) 0.0 (0.0-0.2) X10*3/uL Abs Immat Gran (auto) 0.01 (0.00-0.03) X10*3/uL Absolute Neuts (auto) 4.1 (2.0-8.3) x10*3/uL Absolute Nucleated RBC 0.000 (0.0-0.012) X10*3/uL Nucleated RBC % (auto) 0.0 (0.0-0.2) /100WBC Sodium 141 (135-145) mmol/L Potassium 3.8 (3.3-5.1) mmol/L Chloride 112 H (96-108) mmol/L Carbon Dioxide 22 (22-29) mmol/L Anion Gap 11 L (12-20) BUN 8 L (9-16) mg/dL Creatinine 0.74 (0.5-1.4) mg/dL Estim Creat Clear Calc 134.5 Estimated GFR > 60 Random Glucose 107 (60-115) mg/dL Calcium 8.9 D (8.4-10.2) mg/dL Total Bilirubin 1.0 (0.0-1.0) mg/dL Direct Bilirubin 0.3 (0.0-0.5) mg/dL AST 30 (5-31) U/L ALT 28 (0-31) U/L Alkaline Phosphatase 44 (39-117) U/L Total Protein 7.4 (6.5-8.0) g/dL Albumin 4.0 (3.5-5.0) g/dL Lipase 46 (8-78) U/L Beta HCG, Quant < 2 mIU/mL Urine Color Yellow Urine Appearance Cloudy Urine pH 5.5 (5.0-9.0) Ur Specific [place] 1.020 (1.005-1.025) Urine Protein Trace (Neg-Trace) mg/dL Urine Glucose (UA) Negative (Negative) mg/dL Urine Ketones Trace (Negative) mg/dL Urine Blood Large (3+) H (Negative) Urine Nitrite Negative (Negative) Ur Leukocyte Esterase Trace H (Negative) Urine RBC >20 H (0-2) /HPF Urine WBC 0-5 (0-5) /HPF Ur Squamous Epith Cells 6-10 (0-2) /HPF Urine Bacteria None Seen (None Seen) Hyaline Casts 0-2 (0-2) /LPF Independent Interpretation I performed an independent interpretation of an: CT Scan Interpretation: CT A/P without bowel obstruction Radiology Impression Discussion of test interpretation with radiology: I have reviewed the radiologist's reading. Radiologist Impression: Procedure(s): CT abdomen pelvis wo IV con Accession Number(s): [id number] cc: Sharron Meyers; Ashanti Xavier MD~ Report Number: [id number]: Total DLP = 766.00 mGy-cm EXAMINATION: CT ABDOMEN PELVIS WITHOUT IV CONTRAST HISTORY: periumbilical abd pain COMPARISON: Comparison is made with the prior examination dated 07/25/2016. TECHNIQUE: CT scan of the abdomen and pelvis was performed without contrast using standard departmental protocol. Coronal and sagittal reformatted images were generated and reviewed. Oral contrast material was not administered at the request of the referring physician. This CT exam was performed with one or more of the following dose reduction techniques: automated exposure control, adjustment of the mA and/or kV according to patient size, use of iterative reconstruction technique. DLP: 766 mGy-cm FINDINGS: LOWER CHEST: The visualized lung bases are clear. There is no pleural effusion. CARDIOVASCULATURE: The heart is normal in size. There is no pericardial effusion. LIVER: The liver is normal in size and contour. The liver has an unremarkable unenhanced appearance. GALLBLADDER / BILE DUCTS: The gallbladder is unremarkable. There is no intra or extrahepatic biliary ductal dilatation. SPLEEN: The spleen is normal in size and has an unremarkable unenhanced appearance. PANCREAS: The pancreas has an unremarkable unenhanced appearance. ADRENAL GLANDS: Unremarkable. KIDNEYS/RETROPERITONEUM: No renal calculi are identified. There is no hydronephrosis. LYMPH NODES: No retroperitoneal lymphadenopathy is identified in the abdomen or pelvis. VASCULATURE: The abdominal aorta is normal in caliber. MESENTERY/PERITONEUM: No free fluid. No masses. There is no free intraperitoneal gas. STOMACH: The stomach is collapsed, limiting evaluation. SMALL BOWEL: The small bowel is normal in caliber. COLON: There is fluid throughout the colon. APPENDIX: Normal. URINARY BLADDER/PELVIC ORGANS: The urinary bladder is collapsed, limiting evaluation. There is an IUD in the lower uterine segment. There is a 2.3 cm rounded hyperdense structure in the right adnexa which may represent a hemorrhagic ovarian cyst. The left ovary is unremarkable. BONES / SOFT TISSUES: No suspicious bony or soft tissue abnormalities. CT/CT abdomen pelvis wo IV con IMPRESSION: 1. Fluid throughout the colon, which can be seen in the setting of gastroenteritis. Clinical correlation is recommended. 2. Abnormally positioned IUD in the lower uterine segment. 3. 2.3 cm rounded hyperdense structure in the right adnexa may represent a hemorrhagic cyst. This could be confirmed with ultrasound if indicated. Electronically signed by: Jose Cota MD 06/21/2024 10:09 AM [facility] External Record Review External record reviewed: Inpatient record Prescription Management I considered prescription management with: Other (zofran, Imodium) Social Determinants Patient?s care significantly limited by Social Determinants of Health including: Other Social Determinant of Health Medications Administered Discontinued Medications Generic Name Dose Route Start Last Admin Trade Name Erik PRN Reason Stop Dose Admin Ketorolac Tromethamine 30 mg 06/21/24 09:04 06/21/24 09:42 Ketorolac Tromethamine 30 Mg/Ml Vial IM 06/21/24 09:05 30 mg ONCE ONE Administration Ondansetron HCl 4 mg 06/21/24 06:06 06/21/24 06:09 Ondansetron Odt 4 Mg Tab.Rapdis TRANSLINGU 06/21/24 06:07 4 mg ONCE ONE Administration Critical Care Time Critical Care Time Critical Care Time: No Discharge Plan Discharge Clinical Impression: Gastroenteritis, Ovarian cyst Patient Disposition: Home, Self-Care Instructions: Ovarian Cyst (ED), Gastroenteritis (ED) Additional Instructions: Your lab workup today was reassuring.? Your urine test was negative for infection. The CT scan of your abdomen shows findings consistent with a viral stomach bug, also known as gastroenteritis.? The treatment for this is supportive care. Symptoms usually resolve on their own in 48-72 hours.? The recommendation is rest and lots of oral hydration.? For the next 24 hours, stick to a ESTUARDO diet (bananas rice, applesauce, tea, and toast) Zofran is an anti-nausea medication. This has been sent to your pharmacy for you to take as needed for nausea.? You can also try over the counter Pepto Bismol or Imodium as needed for upset stomach and diarrhea. Follow up with your primary care provider this week. If you develop new or worsening symptoms call 911 or come back to the ER for further evaluation. As discussed, there is also an incidental finding of ovarian cyst to your right ovary which after discussion, is consistent with your previous diagnosis of PCOS. This is unlikely the cause of your symptoms today. Please follow up with your OBGYN doctor outpatient. Prescriptions: New ondansetron 4 mg tablet,disintegrating 4 mg PO DAILY PRN (Reason: nausea and vomiting) 5 Days Qty: 7 0RF loperamide [Imodium A-D] 2 mg tablet 2 mg PO Q6H PRN (Reason: loose stool) 2 Days Qty: 8 0RF Rx Instructions: Initial: 4 mg, followed by 2 mg after each loose stool; maximum: 16 mg/day (OTC: 8 mg/day). Limit use to =48 hours No Action Wegovy 1 mg/0.5 mL pen injector 1 mg subcut Q7D 28 Days Qty: 2 0RF Zepbound 2.5 mg/0.5 mL pen injector 2.5 mg subcut QWEEK Qty: 2 0RF Rx Instructions: for 4 weeks Vitron-C 65 mg iron- 125 mg tablet,delayed release (DR/EC) 1 tab PO DAILY Qty: 90 0RF Rx Instructions: swallow whole; do not chew/break/dissolve/open cholecalciferol (vitamin D3) 125 mcg (5,000 unit) capsule 125 mcg PO DAILY Qty: 90 0RF mecobalamin (vitamin B12) 1,000 mcg tablet,disintegrating 1,000 mcg sublingual DAILY Qty: 90 0RF Rx Instructions: place tablet under tongue and allow to dissolve for at least30 secs before swallowing triamcinolone acetonide 0.1 % cream 1 appl topical BID-TID betamethasone dipropionate 0.05 % ointment topical cetirizine 10 mg tablet 10 mg PO DAILY PRN (Reason: allergy symptoms) 90 Days Qty: 90 0RF ketoconazole 2 % shampoo topical tacrolimus 0.1 % ointment 1 appl topical BID polyethylene glycol 3350 17 gram/dose powder 17 g PO DAILY PRN (Reason: constipation) 30 Days Qty: 510 3RF docusate calcium 240 mg capsule 240 mg PO BID 30 Days Qty: 60 1RF Zepbound 7.5 mg/0.5 mL pen injector 7.5 mg subcut QWEEK Qty: 2 0RF Mirena 21 mcg/24 hr (8 yrs) 52 mg intrauterine device intrauterine Referrals: Ashanti Xavier MD [Primary Care Provider] - Stand Alone Forms: Work/School Release Print Language: [place]
[2024-06-21] MEDS: Ketorolac Tromethamine 30 MG/ML VIAL IM (09:42)
[2024-06-21 09:44] VITALS: BP 115/67; PULSE 60; RESP 16
--- OUTSIDE RECORDS SUMMARY | 2024-06-21 09:49 | XMS_ITS | Clinical Summary ---
Author Organization [facility] it Address [address] [place] [address] Care Team Providers Care Gate Services Supervisor Name Role Phone Rommel Maldonado MD Primary Care Provider [phone] Surgical History Surgery Date Site/Laterality Comments OTHER [...] drink = 0.6 oz pur e alcohol) Comments Unknown Sex and Gender Information Value Date Recorded Sex Assigned at Not on file Legal Sex Female 1:59 PM EST Gender Identity Not on file Sexual Orientation Not on file Obstetrics History Plan of Treatment Health Maintenance Due Date Last Done Comments DTaP,Tdap,and Td Vaccines (1 - Tdap) 2000 Hepatitis B Vaccines (1 of 3 - [...] patient's age to complete this topic Meningococcal B Vacine Aged Out No lo nger eligible based on patient's age to complete [...] age to complete this topic Care Teams Gate Services Supervisor Relationship Specialty Start Date End Date Rommel Maldonado MD [address] [place] [address] [address] [place] [address] PCP - General Internal Medicine 08/10/20
[2024-06-21 11:19] VITALS: BP 115/67; PULSE 60; RESP 16; TEMP -17.7; TEMP 0
== END 2024-06-21 11:19 | disposition home or self-care (01) ==
PROVIDERS: Emergency Provider Emergency Medicine; PCP Internal Medicine
DX: K52.9 Noninfective gastroenteritis and colitis, unspecified (principal); N83.201 Unspecified ovarian cyst, right side; R11.2 Nausea with vomiting, unspecified; D50.9 Iron deficiency anemia, unspecified; R10.2 Pelvic and perineal pain; Z79.899 Other long term (current) drug therapy
CPT/HCPCS: 36415; 74176; 80048; 80076; 81001; 83690; 84702; 85025; 96372; 99283; 99284; J1885

== ENCOUNTER → 2024-06-21 09:04 | Outpatient (BNV) | payer OTHER, SELFPAY | PROVIDERS: Emergency Provider Emergency Medicine; PCP Internal Medicine; Visit Provider Radiology Diagnostic Radiology | DX: R10.33 Periumbilical pain (principal) | CPT/HCPCS: 74176 ==

== ENCOUNTER 2024-06-23 13:51 | Outpatient (AMB) | payer OTHER, SELFPAY ==
--- OUTSIDE RECORDS SUMMARY | 2024-06-23 13:54 | XMS_ITS | Clinical Summary ---
Author Organization [facility] it Address [address] [place] [address] Care Team Providers Care Civil Division Deputy Sheriff Name Role Phone Rommel Maldonado MD Primary Care Provider [phone] Surgical History Surgery Date Site/Laterality Comments OTHER [...] age to complete this topic Care Teams Civil Division Deputy Sheriff Relationship Specialty Start Date End Date Rommel Maldonado MD [address] [place] [address] [address] [place] [address] PCP - General Internal Medicine 08/10/20
--- NOTE | 2024-06-23 13:56 | A.OFFVIS_ITS ---
Vital Signs 06/23/24 13:58 Height 5 ft 5 in Weight 233 lb BMI 38.8 BP 118/68 Intake Visit Reasons: IUD removal Intake Note: Patient refused PT Public Affairs Manager Required: No Public Affairs Manager Services: Public Affairs Manager Present Information Interpreted: clinical only Leasing Director: Leasing Director Present Allergies No Known Allergies Allergy (Verified 06/23/24 13:59) Is last menstrual period known: Yes Last menstrual period: 06/19/24 HPI HPI IUD removal: Details: Patient is here as an add on visit. She was seen in the emergency room 2 days ago with GI symptoms vomiting and diarrhea that has resolved she and her sister with the only ones in the family that had what ever virus it was her kids did not nor her . As an incidental finding with the CT scan it was noted that her IUD was unusually low. 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 (the IUD was placed to manage her abnormal bleeding pattern which is possibly related to her PCOS. She has a history of a tubal ligation so she did not need it for control.) however she did notice that in April and May she had longer periods and there was less of a pattern to it and also it was a little bit more uncomfortable when she had sex. So she was called and told that she had to come in today to get the IUD removed (fewer or no provider's tomorrow and the office is closed Thursday) She has started seeing the weight management team and is on an injectable medication to help with her weight loss she is not interested in bariatric surgery. She has been going to the gym and she is continuing to lose weight and she is trying to eat healthy and she is feeling good about it.. She thinks that she would like to not have anything inside in terms of an IUD anymore and she was actually wondering if there was any way she could just take her uterus out. Discussed that that is not early something that is done unless there is a medical reason do so. Medicinal ways of the 1st option to control abnormal bleeding. [facility] Medical History BMI 39.0-39.9,adult Obesity Eczema Morbid obesity Surgical History Tubal ligation status Hx of section Family History Paternal Grandfather Stroke Paternal Grandmother HTN (hypertension) Maternal Grandfather HTN (hypertension) Diabetes mellitus Mother Uterine cancer Impaired glucose tolerance Maternal Aunt Breast cancer Son Autism ADHD Daughter Autism Social History Housing: Apartment Are you a primary healthcare technician to a significant other at home: No Do you presently have visiting nurse or other home services: No Alcohol intake: never Patient Tobacco Use Status: Former Tobacco user Tobacco use type: Cigarette Cigarettes Per Day: 4 e-Cigarette/Vaping Use: Never Used Second Hand Smoke Exposure: No service: No Current occupational status: unemployed Gender identity: Female Cognitive needs: No Hearing needs: No Vision needs: No Female Reproductive History Menstrual Age of Menarche: 10 Duration of menses: 3-5 days Date of last menstrual period: 06/19/24 control method: progestin IUCD, permanent sterilization and other (vasectomy) Total pregnancies: 2 Full term: 2 Physical Exam Vital Signs: Last Vital Signs BP 118/68 06/23/24 13:58 BMI result Body Mass Index 38.8 Other: Patient has normal menses IUD string easily visible extending about 3 cm from os. See procedure for removal. string was grasped with ring forceps and when patient gave a cough, Mirena IU S was easily removed with 1 tug. External Female Exam: normal external appearance and normal appearance of the urethra Speculum Exam - Vagina: normal appearance of the vagina and normal vaginal discharge Speculum Exam - Cervix: normal appearance of the cervix and Cervical os closed Office Procedures IUD Insert/Removal Details Details: ---Patient is here for her IUD removal The IUD strings were grasped with ring forceps, and as patient coughed the IUD was removed easily with 1 tug. The speculum [place] [address]-MAF Removal Procedure code (CPT) selection complete Results Reviewed Results Reviewed: Patient: Teagan Harrison MR#: [id number] : 1995 Acct:[id number] Age/Sex: 28 / F ADM Date: 06/21/24 Loc: HO.ED Attending Dr: Ordering Physician: Sharron Meyers Date of Service: 06/21/24 Procedure(s): CT abdomen pelvis wo IV con Accession Number(s): [id number] cc: Sharron Meyers; Ashanti Xavier MD~ Report Number: [id number]: Total DLP = 766.00 mGy-cm EXAMINATION: CT ABDOMEN PELVIS WITHOUT IV CONTRAST HISTORY: periumbilical abd pain COMPARISON: Comparison is made with the prior examination dated 07/25/2016. TECHNIQUE: CT scan of the abdomen and pelvis was performed without contrast using standard departmental protocol. Coronal and sagittal reformatted images were generated and reviewed. Oral contrast material was not administered at the request of the referring physician. This CT exam was performed with one or more of the following dose reduction techniques: automated exposure control, adjustment of the mA and/or kV according to patient size, use of iterative reconstruction technique. DLP: 766 mGy-cm FINDINGS: LOWER CHEST: The visualized lung bases are clear. There is no pleural effusion. CARDIOVASCULATURE: The heart is normal in size. There is no pericardial effusion. LIVER: The liver is normal in size and contour. The liver has an unremarkable unenhanced appearance. GALLBLADDER / BILE DUCTS: The gallbladder is unremarkable. There is no intra or extrahepatic biliary ductal dilatation. SPLEEN: The spleen is normal in size and has an unremarkable unenhanced appearance. PANCREAS: The pancreas has an unremarkable unenhanced appearance. ADRENAL GLANDS: Unremarkable. KIDNEYS/RETROPERITONEUM: No renal calculi are identified. There is no hydronephrosis. LYMPH NODES: No retroperitoneal lymphadenopathy is identified in the abdomen or pelvis. VASCULATURE: The abdominal aorta is normal in caliber. MESENTERY/PERITONEUM: No free fluid. No masses. There is no free intraperitoneal gas. STOMACH: The stomach is collapsed, limiting evaluation. SMALL BOWEL: The small bowel is normal in caliber. COLON: There is fluid throughout the colon. APPENDIX: Normal. URINARY BLADDER/PELVIC ORGANS: The urinary bladder is collapsed, limiting evaluation. There is an IUD in the lower uterine segment. There is a 2.3 cm rounded hyperdense structure in the right adnexa which may represent a hemorrhagic ovarian cyst. The left ovary is unremarkable. BONES / SOFT TISSUES: No suspicious bony or soft tissue abnormalities. CT/CT abdomen pelvis wo IV con IMPRESSION: 1. Fluid throughout the colon, which can be seen in the setting of gastroenteritis. Clinical correlation is recommended. 2. Abnormally positioned IUD in the lower uterine segment. 3. 2.3 cm rounded hyperdense structure in the right adnexa may represent a hemorrhagic cyst. This could be confirmed with ultrasound if indicated. Electronically signed by: Jose Cota MD 06/21/2024 10:09 AM [facility] Dictated By: Jose Cota MD Assessment & Plan Assessment & Plan (1) Morbid obesity: Comment: Patient is losing by combination eating healthier ,fewer sweets, fasting, and smaller portions. Code(s): E66.01 - Morbid (severe) obesity due to excess calories Category: Medical (2) Menstrual periods irregular: Code(s): N92.6 - Irregular menstruation, unspecified Category: Medical (3) Presence of 52 mg levonorgestrel-releasing intrauterine device (IUD): Comment: inserted for menorrhagia 12/11/23./removed 06/23/2024 2' to low lying, Code(s): Z97.5 - Presence of (intrauterine) contraceptive device Category: Medical (4) Encounter for IUD removal: Code(s): Z30.432 - Encounter for removal of intrauterine contraceptive device Category: Medical (5) IUD complication: Code(s): T83.9XXA - Unspecified complication of genitourinary prosthetic device, implant and graft, initial encounter Category: Medical (6) Tubal ligation status: Code(s): Z98.51 - Tubal ligation status Category: Medical (7) Menorrhagia: Comment: See notes. Code(s): N92.0 - Excessive and frequent menstruation with regular cycle Category: Medical (8) Hirsutism: Code(s): L68.0 - Hirsutism Category: Medical (9) Ovarian cyst: Comment: Noted on CT scan done in ER 06/21/2024 Code(s): N83.209 - Unspecified ovarian cyst, unspecified side Category: Medical Plan The IUD was easily removed, her discussion. For now she does not want anything. Discussed other considerations should she continue to have an irregular bleeding pattern which is the whole reason placed a Mirena IU S to start with it it does appear that it worked for a few months until she started to be a little bit more uncomfortable and that may be when it became little bit lower in her uterus. Usually it still has its beneficial effects with the levonorgestrel even if it is low down but in this case maybe it was too low.. Discussed other potential options including OCPs. She was enquiring about the possibility of a hysterectomy discussed that normally that would not be done unless there were a medical reason to do so. She still may wished to have an optional visit with exercise physiology professor to see what her options would be surgically. Additionally she is doing very well with losing weight by eating sensibly going to the gym and using the injectable medication now getting through Dr Guy. She is feeling very good about her progress so far and she has lost from about 270 to 233. Discussed that this will be beneficial as well hopefully for her bleeding pattern in the she has many signs and symptoms of PCOS and weight contributes to the exacerbation of all of the its symptoms. Additionally there was an incidental finding of an ovarian cyst on the CT scan done in I will order a pelvic ultrasound follow-up on that and we will have a visit afterwards it can be a tele visit if that is easier for her work situation because taking time off of work is challenging. Orders: Orders AMB IUD Insertion/Removal - Patient Supply Today N92.6 - Irregular menstruation , unspecified, T83.9XXA - Unspecified complication of genitourinary prosthetic device, implant and graft, initial encounter, Z30.432 - Encounter for removal of intrauterine contraceptive device, Z97.5 - Presence of (intrauterine) contraceptive device US pelvic and transvaginal Today L68.0 - Hirsutism, N83.209 - Unspecified ovarian cyst, unspecified side, N92.0 - Excessive and frequent menstruation with regular cycle, N92.6 - Irregular menstruation, unspecified, Z30.432 - Encounter for removal of intrauterine contraceptive device, Z98.51 - Tubal ligation status Coding Level of Care Code Est Pt Level 3 (44579) Diagnoses Morbid obesity E66.01 Menstrual periods irregular N92.6 Presence of 52 mg levonorgestrel-releasing intrauterine device (IUD) Z97.5 Encounter for IUD removal Z30.432 IUD complication T83.9XXA Tubal ligation status Z98.51 Menorrhagia N92.0 Hirsutism L68.0 Ovarian cyst N83.209 CPT Codes Details - CPT: 62878-RIZ Removal ([id number]) Time Spent (min) 45 Comment Discussed patient's longstanding issues with PCOS, AUB and other options, and weight loss.
[2024-06-23 13:58] VITALS: BP 118/68; BMI 38.8
== END 2024-06-23 14:48 | disposition home or self-care (01) ==
PROVIDERS: PCP Internal Medicine; Visit Provider Advanced Practice Midwife
DX: N92.6 Irregular menstruation, unspecified (principal); E66.01 Morbid (severe) obesity due to excess calories; T83.9XXA Unspecified complication of genitourinary prosthetic device, implant and graft, initial encounter; Z30.432 Encounter for removal of intrauterine contraceptive device
CPT/HCPCS: 58301; 99213

== ENCOUNTER → 2024-06-23 13:51 | Outpatient (BNVA) | payer OTHER, SELFPAY | PROVIDERS: PCP Internal Medicine; Visit Provider Advanced Practice Midwife | DX: Z30.432 Encounter for removal of intrauterine contraceptive device (principal); T83.9XXA Unspecified complication of genitourinary prosthetic device, implant and graft, initial encounter; N92.0 Excessive and frequent menstruation with regular cycle; N92.6 Irregular menstruation, unspecified; E66.01 Morbid (severe) obesity due to excess calories; L68.0 Hirsutism; N83.209 Unspecified ovarian cyst, unspecified side; Z98.51 Tubal ligation status; Z68.38 Body mass index [BMI] 38.0-38.9, adult | CPT/HCPCS: 58301; 99212 ==

== ENCOUNTER 2024-07-08 15:04 | Outpatient (REF) | payer OTHER, SELFPAY ==
--- NOTE | ~2024-07-08 | US_ITS ---
EXAMINATION: US PELVIS CLINICAL INFORMATION: Encountered for removal intrauterine device. COMPARISON: Correlated to CT dated June 21, 2024. TECHNIQUE: Ultrasound of the pelvis is performed using both transabdominal transducers along with Doppler. Transvaginal imaging is performed due to inadequate visualization transabdominally. FINDINGS: Uterus: The uterus is anteversion flexion position and measures 9 x 4 x 5 cm. I do not see an intrauterine contraceptive device in the uterus or the cervix. The double wall endometrial thickness is 14 mm. The uterus is smooth in contour and has normal myometrial echogenicity. No visible fibroid. Adnexa: The left ovary is not identified. The right ovary is identified. There is a 1.6 cm anechoic lesion without flow on color Doppler interrogation.. There is flow within the right ovary. No free fluid in the cul-de-sac. Right ovary measures 3 x 3 x 3 cm. Volume: 15 millimeters. US/US pelvic complete IMPRESSION: No intrauterine contraceptive device, probably removed. 1.6 cm dominant follicle, right ovary. Left ovary is not identified. Electronically signed by: Ja Desouza MD 07/11/2024 11:03 AM [facility]
--- OUTSIDE RECORDS SUMMARY | 2024-07-08 17:13 | XMS_ITS | Clinical Summary ---
Author Organization [facility] it Address [address] [place] [address] Care Team Providers Care Waiter/Waitress Name Role Phone Rommel Maldonado MD Primary Care Provider [phone] Surgical History Surgery Date Site/Laterality Comments OTHER [...] age to complete this topic Care Teams Waiter/Waitress Relationship Specialty Start Date End Date Rommel Maldonado MD [address] [place] [address] [address] [place] [address] PCP - General Internal Medicine 08/10/20
== END 2024-07-08 15:05 | disposition home or self-care (01) ==
LOC: HO.US 15:04
PROVIDERS: PCP Internal Medicine; Visit Provider Advanced Practice Midwife
DX: Z30.432 Encounter for removal of intrauterine contraceptive device (principal); N92.6 Irregular menstruation, unspecified; N92.0 Excessive and frequent menstruation with regular cycle
CPT/HCPCS: 76856

== ENCOUNTER 2024-09-15 10:02 | Outpatient (AMB) | payer OTHER, SELFPAY ==
--- NOTE | 2024-09-15 09:03 | MHC.OFFVIS ---
Intake Visit Reasons: US follow up Allergies No Known Allergies Allergy (Verified 09/15/24 09:04) Is last menstrual period known: Yes Last menstrual period: 08/20/24 Post menopausal: No Patient : No HPI HPI US follow up: Details: This is a tele visit to review patient's ultrasound that she had done some months ago this provider's out sick so the appointment had to be rescheduled a couple of times patient had had the Mirena IUD initially it had helped with her menses then she did not like the irregular bleeding and side effects so she had it removed, andnarayan says her periods have returned to cycle and are director 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 [facility] Medical History BMI 39.0-39.9,adult Obesity Eczema Morbid obesity Surgical History Tubal ligation status Hx of section Family History Paternal Grandfather Stroke Paternal Grandmother HTN (hypertension) Maternal Grandfather HTN (hypertension) Diabetes mellitus Mother Uterine cancer Impaired glucose tolerance Maternal Aunt Breast cancer Son Autism ADHD Daughter Autism Social History Housing: Apartment Are you a primary vision care associate to a significant other at home: No Do you presently have visiting nurse or other home services: No Alcohol intake: never Patient Tobacco Use Status: Former Tobacco user Tobacco use type: Cigarette Cigarettes Per Day: 4 e-Cigarette/Vaping Use: Never Used Second Hand Smoke Exposure: No Patient : No service: No Current occupational status: unemployed Gender identity: Female Cognitive needs: No Hearing needs: No Vision needs: No Female Reproductive History Menstrual Age of Menarche: 10 Duration of menses: 8-10 days Date of last menstrual period: 08/20/24 control method: none Total pregnancies: 2 Number of Living Children: 2 Date of last pap smear: 01/16/23 Telehealth Telehealth Telehealth Platform: Telephone Location of provider rendering services: practice address Location of patient: address on file Patient Identification confirmed using: Name, : Yes Telehealth method: voice only Patient verbally consented to treatment: Yes Patient verbally consented to billing insurance company: Yes Patient informed of any privacy concerns related to visit: Yes Minutes spent on Phone/Video with Pt.: 5 (5 cr/5 speaking w pt/5 charting) Results Reviewed Results Reviewed: Patient: Teagan Harrison MR#: [id number] : 1995 Acct:[id number] Age/Sex: 28 / F ADM Date: 07/08/24 Loc: HO.US Attending Dr: Yamileth Sebastian CNM Ordering Physician: Yamileth Sebastian CNM Date of Service: 07/08/24 Procedure(s): US pelvic complete Accession Number(s): [id number] cc: Yamileth Sebastian CNM; Ashanti Xavier MD~ EXAMINATION: US PELVIS CLINICAL INFORMATION: Encountered for removal intrauterine device. COMPARISON: Correlated to CT dated June 21, 2024. TECHNIQUE: Ultrasound of the pelvis is performed using both transabdominal transducers along with Doppler. Transvaginal imaging is performed due to inadequate visualization transabdominally. FINDINGS: Uterus: The uterus is anteversion flexion position and measures 9 x 4 x 5 cm. I do not see an intrauterine contraceptive device in the uterus or the cervix. The double wall endometrial thickness is 14 mm. The uterus is smooth in contour and has normal myometrial echogenicity. No visible fibroid. Adnexa: The left ovary is not identified. The right ovary is identified. There is a 1.6 cm anechoic lesion without flow on color Doppler interrogation.. There is flow within the right ovary. No free fluid in the cul-de-sac. Right ovary measures 3 x 3 x 3 cm. Volume: 15 millimeters. US/US pelvic complete IMPRESSION: No intrauterine contraceptive device, probably removed. 1.6 cm dominant follicle, right ovary. Left ovary is not identified. Electronically signed by: Ja Desouza MD 07/11/2024 11:03 AM EST Dictated By: Ja Avina MD Signed By: <Electronically signed by Ja Arambula MD in OV> 07/11/24 1103 DD/ 1522 TD/TT: 07/08/24 1528 Wiring Inspector: Assessment & Plan Assessment & Plan (1) Tubal ligation status: Code(s): Z98.51 - Tubal ligation status Category: Medical (2) Morbid obesity: Comment: Patient is losing by combination eating healthier ,fewer sweets, fasting, and smaller portions. Code(s): E66.01 - Morbid (severe) obesity due to excess calories Category: Medical (3) Menorrhagia: Comment: See notes.;09/15/24--IUD has now been removed and periods are much improved since she is losing weight. Code(s): N92.0 - Excessive and frequent menstruation with regular cycle Category: Medical (4) Presence of 52 mg levonorgestrel-releasing intrauterine device (IUD): Comment: inserted for menorrhagia 12/11/23./removed 06/23/2024 2' to low lying, Code(s): Z97.5 - Presence of (intrauterine) contraceptive device Category: Medical Plan She feels fine with the Mirena out now. Her periods have become better since she has losing weight and she feels good about that.. She is not having any issues I did review the ultrasound with her which showed a dominant follicle indicating return of cycles soon after removal of the IUD she does not need it for control in any case because she has had tubes tied. we will see her for her next scheduled visit. Coding Level of Care Code Tele Est Pt Level 3 (94884) Diagnoses Tubal ligation status Z98.51 Morbid obesity E66.01 Menorrhagia N92.0 Presence of 52 mg levonorgestrel-releasing intrauterine device (IUD) Z97.5
--- OUTSIDE RECORDS SUMMARY | 2024-09-15 11:06 | XMS_ITS | Clinical Summary ---
Author Organization [facility] it Address [address] [place] [address] Care Team Providers Care Napkin Machine Operator Name Role Phone Rommel Maldonado MD Primary Care Provider [phone] Surgical History Surgery Date Site/Laterality Comments OTHER SURGICAL HISTORY PROCEDURE: DENIES PREVIOUS SURGERY SECTION 04/14/2016 PROCEDURE: HISTORICAL Medical History Medical History Date Comments Morbid obesity (CMS/HCC V24, CMS/HCC V28) DX:Morbid obesity (HCC) Family History Medical History Relation [...] Vaccine (2023-2 5 season) 2024 Influenza Vaccine (Season Ended) 2025 HIB Vaccines Aged Out No longer eligi [...] age to complete this topic Meningococcal B Vaccine Aged Out No l onger eligible based on patient's age to complete [...] age to complete this topic Care Teams Napkin Machine Operator Relationship Specialty Start Date End Date Rommel Maldonado MD [address] [place] [address] [address] [place] [address] PCP - General Internal Medicine 08/10/20
== END 2024-09-15 11:13 | disposition home or self-care (01) ==
LOC: HO.HWSM 10:02
PROVIDERS: PCP Internal Medicine; Visit Provider Advanced Practice Midwife
DX: N92.0 Excessive and frequent menstruation with regular cycle (principal); E66.01 Morbid (severe) obesity due to excess calories; Z98.51 Tubal ligation status; Z97.5 Presence of (intrauterine) contraceptive device
CPT/HCPCS: 99213

== ENCOUNTER → 2024-09-15 10:02 | Outpatient (BNVA) | payer OTHER, SELFPAY | PROVIDERS: PCP Internal Medicine; Visit Provider Advanced Practice Midwife ==

== ENCOUNTER 2024-09-23 06:53 | Outpatient (REF) | payer OTHER, SELFPAY ==
--- OUTSIDE RECORDS SUMMARY | 2024-09-23 06:55 | XMS_ITS | Clinical Summary ---
Author Organization [facility] it Address [address] [place] [address] Care Team Providers Care Lens Mounter Name Role Phone Rommel Maldonado MD Primary Care Provider [phone] Surgical History Surgery Date Site/Laterality Comments OTHER [...] age to complete this topic Care Teams Lens Mounter Relationship Specialty Start Date End Date Rommel Maldonado MD [address] [place] [address] [address] [place] [address] PCP - General Internal Medicine 08/10/20
[2024-09-23 07:11] LABS: MANUAL DIFF FLAG NO
[2024-09-23 07:50] LABS: Basophils Percent Auto 0.6 % (0-2); Eosinophils Absolute Auto 0.3 X10*3/uL (0.0-0.4); Eosinophils Percent Auto 4.6 % (0-4); Hematocrit 36.2 % (37.0-47.0); Hemoglobin 11.9 g/dl (12.0-16.0); Imm Gran Abs Auto 0.02 X10*3/uL (0.00-0.03); Imm Gran Pct Auto 0.4 % (0.0-0.4); Lymphocytes Absolute Auto 1.6 X10*3/uL (1.2-4.9); Lymphocytes Percent Auto 29.9 % (20-40); Mean Corpuscular HGB Conc 32.9 g/dl (31.0-35.0); Mean Corpuscular Hemoglobin 28.3 pg (27.0-33.0); Mean Corpuscular Volume 86.2 fL (80.0-98.0); Mean Platelet Volume 11.6 fL (9.4-12.3); Monocytes Absolute Auto 0.4 X10*3/uL (0.1-1.2); Monocytes Percent Auto 7.8 % (2-11); Neutrophils Absolute Auto 3.1 x10*3/uL (2.0-8.3); Neutrophils Percent Auto 56.7 % (45-73); Platelet Count 242 X10*3/uL (160-400); White Blood Count 5.4 X10*3/uL (4.8-10.8)
[2024-09-23 08:18] LABS: Alanine Aminotransferase 18 U/L (0-31); Albumin Level 3.8 g/dL (3.5-5.0); Alkaline Phosphatase 40 U/L (39-117); Anion Gap 10 (12-20); Aspartate Amino Transferase 18 U/L (5-31); Blood Urea Nitrogen 12 mg/dL (9-16); C Reactive Protein 0.22 mg/dL (< or = 0.50); Calcium 9.4 mg/dL (8.4-10.2); Carbon Dioxide 27 mmol/L (22-29); Chloride 111 mmol/L (96-108); Cholesterol 127 mg/dL (<200); Estimated Glomerular Filt Rate > 60; Glucose Random 94 mg/dL (60-115); HDL Cholesterol 32 mg/dL (>40); Iron 57 mcg/dL (30-160); LDL Cholesterol Calculated 78 mg/dL (<100); Percent Iron Saturation 23 % (15-50); Potassium 3.7 mmol/L (3.3-5.1); Sodium 144 mmol/L (135-145); Total Iron Binding Capacity 246 mcg/dL (228-428); Total Protein 6.4 g/dL (6.5-8.0); Triglycerides 89 mg/dL (<150); Unsaturated Iron Binding 189 ug/dL
[2024-09-23 08:43] LABS: Estimated Average Glucose 103 mg/dL; Hemoglobin A1C 103.5554 umol/L; Hemoglobin A1c % 5.2 % (<6.0); Total Hemoglobin (HGBA1C) 3074.9555 umol/L
[2024-09-23 08:50] LABS: Ferritin 20 ng/mL (10-122); TSH reflex Free T4 4.65 uIU/mL (0.32-4.0)
[2024-09-23 09:06] LABS: Folate 6.2 ng/mL (> or = 4.0); Vitamin B12 396 pg/mL (200-900)
[2024-09-23 09:17] LABS: Insulin 9 uU/mL (2-29)
[2024-09-23 11:03] LABS: Free T4 (Free Thyroxine) 0.88 ng/dL (0.71-1.85)
[2024-09-27 03:02] LABS: Zinc 66 mcg/dL (60-130)
[2024-09-28 08:03] LABS: Vitamin B1 13 nmol/L (8-30)
[2024-09-28 15:58] LABS: Vitamin A 36 mcg/dL (38-98)
== END 2024-09-23 06:54 | disposition home or self-care (01) ==
LOC: HO.LAB 06:53
PROVIDERS: PCP Internal Medicine; Visit Provider Surgery
DX: E66.812 Obesity, class 2 (principal); E66.09 Other obesity due to excess calories; Z68.39 Body mass index [BMI] 39.0-39.9, adult; R73.01 Impaired fasting glucose; Z68.32 Body mass index [BMI] 32.0-32.9, adult; E66.9 Obesity, unspecified
CPT/HCPCS: 36415; 80053; 80061; 82306; 82607; 82728; 82746; 83036; 83525; 83540; 84425; 84439; 84443; 84590; 84630; 85025; 86140

== ENCOUNTER 2024-10-31 07:56 | Outpatient (REF) | payer OTHER, SELFPAY ==
--- NOTE | ~2024-10-31 | US_ITS ---
EXAMINATION: US ABDOMEN COMPLETE WITH LIVER ELASTOGRAPHY HISTORY: E66.812 - Obesity, class 2 TECHNIQUE: Real-time grayscale ultrasound imaging of the abdomen was performed and images were reviewed. COMPARISON: Correlation is made with a CT of the abdomen with contrast dated 06/21/2024. FINDINGS: Liver: The right lobe of the liver measures 12.1 cm in size. The left lobe of the liver measures 9.0 cm in size. The liver demonstrates increased echotexture, consistent with steatosis. No focal mass or intrahepatic biliary ductal dilatation is identified. There is normal hepatopedal flow in the portal vein. Ultrasound elastography of the liver was performed with 10 separate measurements of the liver parenchyma with the patient in the supine position. Measurements were obtained approximately 2 cm below Ryder's capsule and perpendicular to the capsule. The median shear wave velocity is 1.64 m/s. The interquartile range/median (IQR/median) is 0.10. Gallbladder and biliary tree: There may be a polyp within the gallbladder. A small focus of ringdown artifact is seen from the gallbladder wall which may indicate adenomyomatosis. The gallbladder is otherwise unremarkable, without evidence of calculi, wall thickening, or pericholecystic fluid. There is no sonographic Olmedo sign. The common bile duct is normal in caliber measuring 3 mm. Kidneys: The right kidney measures 13.0 cm in length. The left kidney measures 11.7 cm in length. The kidneys are unremarkable, without evidence of masses, hydronephrosis, or calculi. Pancreas: The pancreatic head, neck, and body are unremarkable. The pancreatic tail is obscured by bowel gas. Spleen: The spleen is normal in size and contour, measuring 9.2 cm in length. Abdominal aorta and inferior vena cava: The visualized portions of the abdominal aorta and inferior vena cava are normal in caliber. There is no free fluid in the abdomen. US/US abdomen comp w elastography IMPRESSION: Probable adenomyomatosis of the gallbladder. Possible small gallbladder polyp. The median shear wave velocity in the liver is 1.64 m/s, corresponding to a median liver stiffness of 8.23 kPa. The IQR/median value is 0.10. This is indicative of a quality data set. Findings are indicative of a low elastography value which rules out advanced chronic liver disease in asymptomatic patients. REFERENCE: Society of Radiologists in Ultrasound Liver Stiffness Thresholds (2020): LIVER STIFFNESS THRESHOLDS: *Shear wave velocity less than 1.3 m/s (Liver Stiffness equal or less than 5 kPa): High probability of being normal. *Shear wave velocity less than 1.7 m/s (Liver Stiffness less than 9 kPa): In the absence of other known clinical signs, rules out compensated advanced chronic liver disease. *Shear wave velocity between 1.7-2.1 m/s (Liver Stiffness 9-13 kPa): Suggestive of compensated advanced chronic liver disease but need further test for confirmation. *Shear wave velocity between 2.1-2.4 m/s (Liver Stiffness 13-17 kPa): Rules in compensated advanced chronic liver disease. *Shear wave velocity greater than 2.4 m/s (Liver Stiffness over 17 kPa): Suggestive of clinically significant portal hypertension. QUALITY OF DATA SET: *IQR/Median value equal or less than 0.15 implies a quality data set. *IQR/Median value over 0.15 implies a poor quality data set. SIGNIFICANT CHANGE FROM PRIOR EXAM: Significant change if liver stiffness measurement is 10% or greater from prior exam. OTHER CONSIDERATIONS: The stage of liver fibrosis may be overestimated in the setting of acute hepatitis, liver inflammation, elevated liver function tests, hepatic vascular congestion, obstructive cholestasis, non-fasting state, and infiltrative diseases such as amyloidosis and lymphoma. In some patients with NAFLD, the liver stiffness thresholds for compensated advanced chronic liver disease may be lower. In causes other than viral hepatitis and NAFLD, liver stiffness thresholds are not well established. Electronically signed by: Jose Cota MD 10/31/2024 09:12 AM EDT
--- NOTE | ~2024-10-31 | XR_ITS ---
CLINICAL HISTORY: E66.812 - Obesity, class 2 2 view chest x-ray Comparison: None provided Findings: No consolidation or effusion. Heart size is normal. No acute fracture. IMPRESSION: 1. No acute findings. This document has been electronically signed by: Fatou Millard MD on 11/01/2024 14:20:19
--- OUTSIDE RECORDS SUMMARY | 2024-10-31 08:02 | XMS_ITS | Clinical Summary ---
Author Organization [facility] it Address [address] [place] [address] Care Team Providers Care Poultry Culler Name Role Phone Rommel Maldonado MD Primary Care Provider [phone] Surgical History Surgery Date Site/Laterality Comments OTHER [...] age to complete this topic Care Teams Poultry Culler Relationship Specialty Start Date End Date Rommel Maldonado MD [address] [place] [address] [address] [place] [address] PCP - General Internal Medicine 08/10/20
== END 2024-10-31 07:57 | disposition home or self-care (01) ==
LOC: HO.US 07:56
PROVIDERS: PCP Internal Medicine; Visit Provider Surgery
DX: E66.812 Obesity, class 2 (principal); E66.09 Other obesity due to excess calories; Z68.39 Body mass index [BMI] 39.0-39.9, adult; R73.01 Impaired fasting glucose
CPT/HCPCS: 71046; 76700; 76981

== ENCOUNTER → 2024-10-31 07:57 | Outpatient (BNV) | payer OTHER, SELFPAY | PROVIDERS: PCP Internal Medicine; Visit Provider Radiology Diagnostic Radiology | DX: K76.0 Fatty (change of) liver, not elsewhere classified (principal) | CPT/HCPCS: 71046; 76700; 76981 ==

== ENCOUNTER 2024-11-03 07:03 | Outpatient (REF) | payer OTHER, SELFPAY ==
--- OUTSIDE RECORDS SUMMARY | 2024-11-03 07:05 | XMS_ITS | Clinical Summary ---
Author Organization [facility] it Address [address] [place] [address] Care Team Providers Care Dress Marker Name Role Phone Rommel Maldonado MD Primary Care Provider [phone] Surgical History Surgery Date Site/Laterality Comments OTHER [...] age to complete this topic Care Teams Dress Marker Relationship Specialty Start Date End Date Rommel Maldonado MD [address] [place] [address] [address] [place] [address] PCP - General Internal Medicine 08/10/20
[2024-11-03 08:37] LABS: Thyroid Stimulating Hormone 4.52 uIU/mL (0.32-4.0)
== END 2024-11-03 07:04 | disposition home or self-care (01) ==
LOC: HO.LAB 07:03
PROVIDERS: PCP Internal Medicine; Visit Provider Internal Medicine
DX: E07.9 Disorder of thyroid, unspecified (principal)
CPT/HCPCS: 36415; 84443

== ENCOUNTER 2024-11-23 11:22 | Outpatient (AMB) | payer OTHER, SELFPAY ==
[2024-11-23 11:27] VITALS: BP 108/64; PULSE 89; O2SAT 100; BMI 37.6
--- NOTE | 2024-11-23 11:27 | MHC.PC.OV ---
Vital Signs 11/23/24 11:27 Height 5 ft 5 in Weight 226 lb 2 oz BMI 37.6 BP 108/64 Blood Pressure Location Lt brachial Position Sitting Pulse 89 Pulse Oximetry (%) 100 Oxygen Delivery Method Room Air Intake Visit Reasons: hair loss Hazardous Materials Driver Required: No Accompanied by: Self / Same As Patient Allergies No Known Allergies Allergy (Verified 11/23/24 11:53) Medication List - Last Reconciled 11/23/24 by Anny Almanzar PA-C betamethasone dipropionate 0.05% topical cetirizine 10 mg PO DAILY PRN 90 days cholecalciferol (vitamin D3) 125 mcg PO DAILY iron,carbonyl-vitamin C 65 mg iron- 125 mg (Vitron-C) 1 tab PO DAILY ketoconazole 2% topical levothyroxine (Levoxyl) 25 mcg PO DAILY linaclotide (Linzess) 72 mcg PO DAILY 30 days loperamide (Imodium A-D) 2 mg PO Q6H PRN 2 days mecobalamin (vitamin B12) 1,000 mcg sublingual DAILY polyethylene glycol 3350 17 grams PO DAILY PRN 30 days tacrolimus 0.1% 1 appl topical BID tirzepatide (weight loss) (Zepbound) 2.5 mg (0.5 mL) subcut QWEEK triamcinolone acetonide 0.1% 1 appl topical BID-TID Tobacco use date assessed: 11/23/24 Dental Screening Dental Screen Date: 11/23/24 HPI hair loss HPI Details 29 year old female with past medical history , elevated fasting glucose, hirsutism, constipation, eczema and thyroid disease last seen 04/[address] Snider coming in for acute problem. Presenting with hair loss. Diagnosed with hypothyroidism, the patient reports significant hair loss despite medication. Hair loss is severe, with large amounts falling out during washing, and has not improved with current thyroid medication. The patient has been on thyroid medication since November 04, but continues to experience hair loss. Previous blood work in October included TSH but not T4 levels. [facility] Medical History BMI 39.0-39.9,adult Obesity Eczema Morbid obesity Surgical History Tubal ligation status Hx of section Family History Paternal Grandfather Stroke Paternal Grandmother HTN (hypertension) Maternal Grandfather HTN (hypertension) Diabetes mellitus Mother Uterine cancer Impaired glucose tolerance Maternal Aunt Breast cancer Son Autism ADHD Daughter Autism Social History Housing: Apartment Are you a primary day care director to a significant other at home: No Do you presently have visiting nurse or other home services: No Alcohol intake: never Patient Tobacco Use Status: Former Tobacco user Tobacco use type: Cigarette Cigarettes Per Day: 4 e-Cigarette/Vaping Use: Never Used Second Hand Smoke Exposure: No service: No Current occupational status: unemployed Gender identity: Female Cognitive needs: No Hearing needs: No Vision needs: No Female Reproductive History Menstrual Age of Menarche: 10 Questionnaire PHQ-9 Over the last 2 weeks, how often have you been bothered by any of the following problems? 1. Little interest or pleasure in doing things: not at all 2. Feeling down, depressed, or hopeless: not at all 3. Trouble falling or staying asleep, or sleeping too much: not at all 4. Feeling tired or having little energy: not at all 5. Poor appetite or overeating: not at all 6. Feeling bad about yourself - or that you are a failure or have let yourself or your family down: not at all 7. Trouble concentrating on things, such as reading the newspaper or watching television: not at all 8. Moving or speaking so slowly that other people could have noticed. Or the opposite - being so fidgety or restless that you have been moving around a lot more than usual: not at all 9. Thoughts that you would be better off or of hurting yourself in some way: not at all Total score: 0 Source: Developed by Drs. Jose Watts, Kaylin Macias, Isaiah Parra and colleagues, with an educational bina from [employer]. Thrive Questionnaire Date Thrive assessed: 11/21/24 I am a: Patient What is your living situation today?: I have a steady place to live Within the past 12 months, did the food you bought not last and you didn't have the money to get more?: Never true Within the past 12 months, did you worry whether your food would run out before you got money to buy more?: Never true Do you have trouble paying for medicines?: No Do you have trouble getting transportation to medical appointments?: No Do you have trouble paying your heating and electricity bill?: No Do you have trouble taking care of your child, family member or friend?: No Do you have trouble with day-to-day activities such as bathing, preparing meals, shopping, managing finances, etc.?: No Are you currently unemployed and looking for a job?: No Are you interested in more education?: No Please select the resources that you would like help with: None Currently or been in a relationship where the following occur: No concerns reported THRIVE Score: 0 AUDIT C Alcohol Use Questionnaire (AUDIT-C) 1. How often do you have a drink containing alcohol?: Never 3. How often do you have six or more drinks on one occasion?: Never Total Score: 0 ZOË-7 AMB Questionnaire ZOË-7 Date ZOË - 7 assessed: 04/15/23 Feeling nervous, anxious, or on edge: 0 = Not at all Not being able to stop or control worryin = Not at all Worrying too much about different things: 0 = Not at all Trouble relaxin = Not at all Being so restless that it is hard to sit still: 0 = Not at all Becoming easily annoyed or irritable: 0 = Not at all Feeling afraid as if something awful might happen: 0 = Not at all Total ZOË-7 score (0-4 normal; 5-9 mild; 10-14 moderate; 15-21 severe): 0 Source: Developed by Drs. Jose Watts, Kaylin Macias, Isaiah Parra and colleagues, with an educational bina from [employer]. Review of Systems Const Denies body aches, Denies chills, Denies fever(s) and Denies poor appetite Eyes Reports no additional complaints Card Denies chest pain, Denies lightheadedness and Denies dyspnea Resp Denies dyspnea GI Denies nausea and Denies vomiting Reports no additional complaints Musc Reports no additional complaints and Denies abnormal gait Skin/Breast Reports as per HPI Neuro Denies abnormal gait Psych Reports no additional complaints Physical exam (Primary Care) Vital Signs: Last Vital Signs Pulse 89 11/23/24 11:27 BP 108/64 11/23/24 11:27 Pulse Ox 100 11/23/24 11:27 Oxygen Delivery Method Room Air 11/23/24 11:27 BMI result Body Mass Index 37.6 Tobacco/Smoking Status: Tobacco use Status Tobacco use date assessed 11/23/24 11/23/24 11:33 Patient Tobacco Use Status Former Tobacco user 11/23/24 11:33 Tobacco use type Cigarette 11/23/24 11:33 e-Cigarette/Vaping Use Never Used 11/23/24 11:33 PHQ-9: PHQ-9 Score PHQ-9: Total score 0 11/23/24 11:52 Thrive Assessment: Date of Thrive Assessment Date Thrive assessed 11/21/24 11/23/24 11:33 Currently or been in a relationship where the following occur: No concerns reported Const General: cooperative, healthy appearing, comfortable and no acute distress Orientation/consciousness: patient oriented x3 HENMT Head: Yes normocephalic Ears: hearing grossly normal bilaterally General nose exam: Normal external nose present Eyes General: appearance normal, both eyes and all related structures Conjunctivae: conjunctivae normal Neck Neck: Yes full ROM and Yes no lymphadenopathy Resp Effort & Inspection: normal respiratory effort Auscultation: clear to auscultation bilaterally, no crackles, no rales, no rhonchi and no wheezes Cardio Rate: regular rate Rhythm: regular rhythm Skin General skin exam: no rashes or lesions noted Neuro General: patient oriented x3 Gait exam (Neuro): Normal gait present Extrem General: Yes normal to inspection, Yes full ROM and No edema Psych Affect: normal affect Attitude: cooperative Insight: Good insight present (Psych) Judgement: Good judgement present (Psych) Coding Level of Care Code Est Pt Level 3 (77257) Diagnoses Hair loss L65.9 Assessment & Plan Assessment & Plan (1) Hair loss: Code(s): L65.9 - Nonscarring hair loss, unspecified Category: Medical Plan: The plan includes repeating the thyroid function tests, including T4 levels, to assess the adequacy of the current thyroid medication dosage. Additional blood work will be conducted to check for vitamin deficiencies and an iron profile, as these can contribute to hair loss. If the thyroid levels and other labs return normal, the patient will be referred to dermatology for further evaluation of primary hair loss. The patient will be prescribed a topical foam, similar to Rogaine, to promote hair regrowth. If the topical treatment is ineffective, oral medications may be considered, typically managed by a restaurant attendant. Plan This note was constructed using voice recognition software. While every effort has been made to ensure accuracy and armhole feller handstitching machine, still areas may have been included sometimes these areas may affect the content or meeting of the given symptoms. Total time spent caring for the patient today was 20 minutes. This includes time spent before the visit reviewing the chart, time spent during the visit, and time spent after the visit and documentation. Patient was informed and verbally consented to the use of an ambient scribe for clinic note documentation during this visit. Orders: Orders TSH reflex Free T4 Today L65.9 - Nonscarring hair loss, unspecified, Z00.00 - Encounter for general adult medical examination without abnormal findings Vitamin D 25-OH Total Today L65.9 - Nonscarring hair loss, unspecified, Z00.00 - Encounter for general adult medical examination without abnormal findings IRON PROFILE Today L65.9 - Nonscarring hair loss, unspecified Free T4 (Free Thyroxine) Today L65.9 - Nonscarring hair loss, unspecified, Z00.00 - Encounter for general adult medical examination without abnormal findings Vitamin B12 and Folate Today L65.9 - Nonscarring hair loss, unspecified, Z13.21 - Encounter for screening for nutritional disorder Medications: New minoxidil 5% 1 ea topical .weekly 60 grams 0RF L65.9 - Nonscarring hair loss, unspecified
== END 2024-11-23 12:41 | disposition home or self-care (01) ==
LOC: HO.HMCH 11:23
PROVIDERS: PCP Internal Medicine
DX: L65.9 Nonscarring hair loss, unspecified (principal)

== ENCOUNTER 2024-11-23 11:22 | Outpatient (REF) | payer OTHER, SELFPAY ==
[2024-11-23 13:09] LABS: Iron 32 mcg/dL (30-160); Percent Iron Saturation 10 % (15-50); Total Iron Binding Capacity 322 mcg/dL (228-428); Unsaturated Iron Binding 290 ug/dL
--- OUTSIDE RECORDS SUMMARY | 2024-11-23 13:09 | XMS_ITS | Clinical Summary ---
Author Organization [facility] it Address [address] [place] [address] Care Team Providers Care Guinea Pig Breeder Name Role Phone Rommel Maldonado MD Primary Care Provider [phone] Surgical History Surgery Date Site/Laterality Comments OTHER [...] (2023-2 5 season) 2024 Influenza Vaccine (#1) 2025 HIB Vaccines Aged Out No longer [...] 5 Years) and At-Risk Patients (6 to 49 Years) Aged Out No longer eligible b ased on patient's age to complete this topic RSV Immunization Patients Un edie 20 months Aged Out No longer eligible b ased on patient's age to complete this topic Varicella Vaccines Aged Out No longer eligible based on patient's age to complete this topic Care Teams Guinea Pig Breeder Relationship Specialty Start Date End Date Rommel Maldonado MD [address] [place] [address] [address] [place] [address] PCP - General Internal Medicine 08/10/20
[2024-11-23 13:26] LABS: Free T4 (Free Thyroxine) 0.85 ng/dL (0.71-1.85)
[2024-11-23 13:38] LABS: Folate 10.4 ng/mL (> or = 4.0); Vitamin B12 227 pg/mL (200-900)
== END 2024-11-23 11:23 | disposition home or self-care (01) ==
LOC: HO.LAB 11:22
PROVIDERS: PCP Internal Medicine
DX: L65.9 Nonscarring hair loss, unspecified (principal); Z87.891 Personal history of nicotine dependence; Z13.21 Encounter for screening for nutritional disorder; Z00.00 Encounter for general adult medical examination without abnormal findings
CPT/HCPCS: 36415; 82306; 82607; 82746; 83540; 84439; 84443; 99212

== ENCOUNTER 2025-01-17 07:07 | Outpatient (REF) | payer OTHER, SELFPAY ==
--- OUTSIDE RECORDS SUMMARY | 2025-01-17 07:10 | XMS_ITS | Clinical Summary ---
[facility] Organization [facility] Address [address] [place] [address] Care Team Providers Care Filter Worker Name Role Phone Rommel Maldonado MD Primary Care Provider [phone] Surgical History Surgery Date Site/Laterality Comments OTHER [...] Cervical Cancer Screening: P ap Smear 2014 Depression Screening 05/11/2024 COVID-19 Vaccine ( - 2023-2 5 season) 2025 Influenza Vaccine (#1) 2025 HIB Vaccines Aged [...] age to complete this topic Care Teams Filter Worker Relationship Specialty Start Date End Date Rommel Maldonado MD [address] [place] [address] [address] [place] [address] PCP - General Internal Medicine 08/10/20
[2025-01-20 17:53] LABS: TS Negative Control Passed; TS Panel A 1; TS Panel B 2; TS Positive Control Passed; TSpotTB Negative (Negative)
== END 2025-01-17 07:08 | disposition home or self-care (01) ==
LOC: HO.LAB 07:07
PROVIDERS: PCP Internal Medicine; Visit Provider Internal Medicine
DX: Z11.1 Encounter for screening for respiratory tuberculosis (principal)
CPT/HCPCS: 36415; 86481

== ENCOUNTER 2025-01-24 08:03 | Outpatient (REF) | payer OTHER, SELFPAY ==
--- OUTSIDE RECORDS SUMMARY | 2025-01-24 11:14 | XMS_ITS | Clinical Summary ---
Author Organization [facility] it Address [address] [place] [address] Care Team Providers Care Marine Driller Name Role Phone Rommel Maldonado MD Primary Care Provider [phone] Surgical History Surgery Date Site/Laterality Comments OTHER [...] age to complete this topic Care Teams Marine Driller Relationship Specialty Start Date End Date Rommel Maldonado MD [address] [place] [address] [address] [place] [address] PCP - General Internal Medicine 08/10/20
[2025-01-25 12:55] LABS: Bacterial Vaginosis PCR NEGATIVE (Negative); Candida Group PCR NOT DETECTED (Not Detect); Candida glab krusei PCR NOT DETECTED (Not Detect); Trichomonas vaginalis PCR NOT DETECTED (Not Detect)
[2025-01-25 13:27] LABS: CT PCR NOT DETECTED (Not Detect.); NG PCR NOT DETECTED (Not Detect.)
== END 2025-01-24 08:04 | disposition home or self-care (01) ==
LOC: HO.LNP 08:03
PROVIDERS: PCP Internal Medicine; Visit Provider Advanced Practice Midwife
DX: Z12.4 Encounter for screening for malignant neoplasm of cervix (principal); Z11.3 Encounter for screening for infections with a predominantly sexual mode of transmission; Z11.51 Encounter for screening for human papillomavirus (HPV); G54.2 Cervical root disorders, not elsewhere classified; Z11.8 Encounter for screening for other infectious and parasitic diseases; Z98.51 Tubal ligation status
CPT/HCPCS: 81515; 87491; 87591; 87626; 88175; 99212

== ENCOUNTER 2025-01-24 08:03 | Outpatient (AMB) | payer OTHER, SELFPAY ==
[2025-01-24 08:34] VITALS: BP 96/62; BMI 38.1
--- NOTE | 2025-01-24 08:34 | MHC.OFFVIS ---
Vital Signs 01/24/25 08:34 Height 5 ft 5 in Weight 229 lb BMI 38.1 BP 96/62 Blood Pressure Location Lt brachial Position Sitting Intake Visit Reasons: lump on cervix/ 30 mins Refrigeration Supervisor Required: No Radiological Health Specialist: Radiological Health Specialist Present Allergies No Known Allergies Allergy (Verified 01/24/25 08:38) Medication List - Last Reconciled 01/24/25 by Jennifer Reynaga, TAHIR betamethasone dipropionate 0.05% topical cetirizine 10 mg PO DAILY PRN 90 days cholecalciferol (vitamin D3) 125 mcg PO DAILY iron,carbonyl-vitamin C 65 mg iron- 125 mg (Vitron-C) 1 tab PO DAILY ketoconazole 2% topical levothyroxine (Levoxyl) 25 mcg PO DAILY linaclotide (Linzess) 72 mcg PO DAILY 30 days loperamide (Imodium A-D) 2 mg PO Q6H PRN 2 days mecobalamin (vitamin B12) 1,000 mcg sublingual DAILY minoxidil 5% 1 ea topical .weekly polyethylene glycol 3350 17 grams PO DAILY PRN 30 days tacrolimus 0.1% 1 appl topical BID tirzepatide (weight loss) (Zepbound) 2.5 mg (0.5 mL) subcut QWEEK triamcinolone acetonide 0.1% 1 appl topical BID-TID Is last menstrual period known: Yes Last menstrual period: 01/02/25 Post menopausal: No Patient : No Do you need a note to return to daycare/school/sports/work: No HPI Comments Details: Patient is here today with concerns of finding a non tender cervical lump for the last week. She denies any pelvic pain, urinary symptom, vaginal discharge or discomfort, no postcoital bleeding or dyspareunia. Due for Pap smear due Co testing after 30. History of tubal ligation reports menses are regular. [facility] Medical History BMI 39.0-39.9,adult Obesity Eczema Morbid obesity Surgical History Previous section complicating , antepartum condition or complication Tubal ligation status Hx of section Family History Paternal Grandfather Stroke Paternal Grandmother HTN (hypertension) Maternal Grandfather HTN (hypertension) Diabetes mellitus Mother Uterine cancer Impaired glucose tolerance Maternal Aunt Breast cancer Son Autism ADHD Daughter Autism Social History Housing: Apartment Are you a primary child adolescent care to a significant other at home: No Do you presently have visiting nurse or other home services: No Alcohol intake: never Patient Tobacco Use Status: Former Tobacco user Tobacco use type: Cigarette Cigarettes Per Day: 4 e-Cigarette/Vaping Use: Never Used Second Hand Smoke Exposure: No Patient : No service: No Current occupational status: unemployed Gender identity: Female Cognitive needs: No Hearing needs: No Vision needs: No Female Reproductive History Menstrual Age of Menarche: 10 Date of last menstrual period: 01/02/25 control method: permanent sterilization Review of Systems Const All systems reviewed & are unremarkable except as noted in HPI and below Endo Reports no additional complaints Physical Exam Vital Signs: Last Vital Signs BP 96/62 01/24/25 08:34 BMI result Body Mass Index 38.1 Const General: cooperative, healthy appearing and no acute distress Orientation/consciousness: patient oriented x3 GI Inspection: Yes normal to inspection Palpation (GI): Soft to palpation and Other GI palpation findings present (Nontender) Rectal Exam - Female: visual inspection normal General: Yes bladder normal to palpation External Female Exam: normal appearance of the urethra Speculum Exam - Vagina: normal appearance of the vagina, normal palpation and normal vaginal discharge Speculum Exam - Cervix: normal appearance of the cervix, normal palpation and Other cervical findings present (No lump or lesion, firmness to os noted) Bimanual exam- vagina & uterus: normal bimanual exam, normal palpation, uterine size normal, bladder normal to palpation, normal palpation, uterine shape normal and non-tender Bimanual Exam- Adnexa, other: normal adnexae Neuro General: patient oriented x3 Psych Appearance: well kempt Attitude: cooperative Thought process: Normal thought process present Assessment & Plan Assessment & Plan (1) Cervical cancer screening: Code(s): Z12.4 - Encounter for screening for malignant neoplasm of cervix Category: Medical Plan: No distinct abnormalities noted with the cervix, Pap smear screening completed with co testing. The patient expressed understanding and agreement with the plan of care. All of her questions and concerns were addressed to the best of my ability. Plan Pap smear, GC chlamydia BV panel obtained. Await results for final plan of care. Report any unscheduled bleeding episodes. Keep annual exam appointment for April 2025. The patient expressed understanding and agreement with the plan of care. All of her questions and concerns were addressed to the best of my ability. This note is constructed using voice recognition software. While every effort has been made to ensure accuracy, plant operations engineer errors may have been included. Orders: Orders CT NG by PCR Vag/Cerv Today Z11.3 - Encounter for screening for infections with a predominantly sexual mode of transmission Bacterial Vaginosis Panel Today Z11.3 - Encounter for screening for infections with a predominantly sexual mode of transmission HPV High risk Today G54.2 - Cervical root disorders, not elsewhere classified Pap Smear Today G54.2 - Cervical root disorders, not elsewhere classified Coding Level of Care Code Est Pt Level 3 (84949) Diagnoses Cervical cancer screening Z12.4
== END 2025-01-24 08:55 | disposition home or self-care (01) ==
LOC: HO.HWS 08:03
PROVIDERS: PCP Internal Medicine; Visit Provider Advanced Practice Midwife
DX: Z12.4 Encounter for screening for malignant neoplasm of cervix (principal)
CPT/HCPCS: 99213

== ENCOUNTER 2025-02-06 10:49 | Outpatient (AMB) | payer OTHER, SELFPAY ==
[2025-02-06 10:54] VITALS: BP 100/60; PULSE 64; RESP 18; TEMP 36.3; O2SAT 97; BMI 39.3
--- NOTE | 2025-02-06 10:54 | A.OFFPC_ITS ---
Vital Signs 02/06/25 10:54 Height 5 ft 5 in Weight 236 lb 6 oz BMI 39.3 BP 100/60 Blood Pressure Location Lt brachial Position Sitting Respiration 18 Pulse 64 Pulse Source Pulse Oximeter Temp 97.3 F Temp Source Temporal Artery Scan Pulse Oximetry (%) 97 Oxygen Delivery Method Room Air Intake Visit Reasons: Throat infection Behavioral Health Professional Required: No Accompanied by: Self / Same As Patient Allergies No Known Allergies Allergy (Verified 02/06/25 10:54) Medication List - Last Reconciled 02/06/25 by Quan Driscoll MD betamethasone dipropionate 0.05% topical cetirizine 10 mg PO DAILY PRN 90 days cholecalciferol (vitamin D3) 125 mcg PO DAILY doxycycline hyclate 100 mg PO BID iron,carbonyl-vitamin C 65 mg iron- 125 mg (Vitron-C) 1 tab PO DAILY ketoconazole 2% topical levothyroxine (Levoxyl) 25 mcg PO DAILY linaclotide (Linzess) 72 mcg PO DAILY 30 days mecobalamin (vitamin B12) 1,000 mcg sublingual DAILY minoxidil 5% 1 ea topical .weekly tacrolimus 0.1% 1 appl topical BID triamcinolone acetonide 0.1% 1 appl topical BID-TID Tobacco use date assessed: 02/06/25 Dental Screening Dental Screen Date: 02/06/25 Did you have a dental visit in the last 12 months?: Yes Did you have a dental problem in the last 6 months where you did not have access to dental care?: No Was dental information given to patient?: Patient has dentist HPI HPI Comments History of Present Illness Details The patient is a 29-year-old female presenting with a sore throat. The sore throat began on Thursday, with no associated fever or chills reported. The patient denies any sneezing or other symptoms. The patient's voice is faint. She denies any dyspnea, chest pain, change in bowels or urinary habits. She has been using cetirizine as needed but has not increased the dosage recently. Additionally, she took DayQuil on Thursday and Thursday to manage symptoms. [facility] Medical History BMI 39.0-39.9,adult Obesity Eczema Morbid obesity Surgical History Previous section complicating , antepartum condition or complication Tubal ligation status Hx of section Family History Paternal Grandfather Stroke Paternal Grandmother HTN (hypertension) Maternal Grandfather HTN (hypertension) Diabetes mellitus Mother Uterine cancer Impaired glucose tolerance Maternal Aunt Breast cancer Son Autism ADHD Daughter Autism Social History Housing: Apartment Are you a primary director long term care to a significant other at home: No Do you presently have visiting nurse or other home services: No Alcohol intake: never Patient Tobacco Use Status: Former Tobacco user Tobacco use type: Cigarette Cigarettes Per Day: 4 e-Cigarette/Vaping Use: Never Used Second Hand Smoke Exposure: No service: No Current occupational status: unemployed Gender identity: Female Cognitive needs: No Hearing needs: No Vision needs: No Female Reproductive History Menstrual Age of Menarche: 10 Questionnaire Thrive Questionnaire Date Thrive assessed: 11/21/24 I am a: Patient What is your living situation today?: I have a steady place to live Within the past 12 months, did the food you bought not last and you didn't have the money to get more?: Never true Within the past 12 months, did you worry whether your food would run out before you got money to buy more?: Never true Do you have trouble paying for medicines?: No Do you have trouble getting transportation to medical appointments?: No Do you have trouble paying your heating and electricity bill?: No Do you have trouble taking care of your child, family member or friend?: No Do you have trouble with day-to-day activities such as bathing, preparing meals, shopping, managing finances, etc.?: No Are you currently unemployed and looking for a job?: No Are you interested in more education?: No Please select the resources that you would like help with: None Currently or been in a relationship where the following occur: No concerns reported THRIVE Score: 0 ZOË-7 AMB Questionnaire ZOË-7 Date ZOË - 7 assessed: 04/15/23 Source: Developed by Drs. Jose Watts, Kaylin Macias, Isaiah Parra and colleagues, with an educational bina from [employer]. Review of Systems Const Details: Positives besides what was mentioned in HPI are in BOLD Constitutional: No Weight Change, No Fever, No Chills, No Night Sweats, No Fatigue, No Malaise ENT/Mouth: No Hearing Changes, No Ear Pain, No Nasal Congestion, No Sinus Pain, No Hoarseness, No sore throat, No Rhinorrhea, No Swallowing Difficulty Eyes: No Eye Pain, No Swelling, No Redness, No Foreign Body, No Discharge, No Vision Changes Cardiovascular: No Chest Pain, No SOB, No PND, No Dyspnea on Exertion, No Orthopnea, No Claudication, No Edema, No Palpitations Respiratory: No Cough, No Sputum, No Wheezing, No Smoke Exposure, No Dyspnea Gastrointestinal: No Nausea, No Vomiting, No Diarrhea, No Constipation, No Pain, No Heartburn, No Anorexia, No Dysphagia, No Hematochezia, No Melena, No Flatulence, No Jaundice Genitourinary: No Dysmenorrhea, No DUB, No Dyspareunia, No Dysuria, No Urinary Frequency, No Hematuria, No Urinary Incontinence, No Urgency, No Flank Pain, No Urinary Flow Changes, No Hesitancy Musculoskeletal: No Arthralgias, No Myalgias, No Joint Swelling, No Joint Stiffness, No Back Pain, No Neck Pain, No Injury History Skin: No Skin Lesions, No Pruritis, No Hair Changes, No Breast/Skin Changes, No Nipple Discharge Neuro: No Weakness, No Numbness, No Paresthesias, No Loss of Consciousness, No Syncope, No Dizziness, No Headache, No Coordination Changes, No Recent Falls Psych: No Anxiety/Panic, No Depression, No Insomnia, No Personality Changes, No Delusions, No Rumination, No SI/HI/AH/VH, No Social Issues, No Memory Changes, No Violence/Abuse Hx., No Eating Concerns Heme/Lymph: No Bruising, No Bleeding, No Transfusions History, No Lymphadenopathy Endocrine: No Polyuria, No Polydipsia, No Temperature Intolerance Physical exam (Primary Care) Vital Signs: Last Vital Signs Temp 97.3 F 02/06/25 10:54 Pulse 64 02/06/25 10:54 Resp 18 02/06/25 10:54 BP 100/60 02/06/25 10:54 Pulse Ox 97 02/06/25 10:54 Oxygen Delivery Method Room Air 02/06/25 10:54 BMI result Body Mass Index 39.3 Tobacco/Smoking Status: Tobacco use Status Tobacco use date assessed 02/06/25 02/06/25 10:57 Patient Tobacco Use Status Former Tobacco user 02/06/25 10:57 Tobacco use type Cigarette 02/06/25 10:57 e-Cigarette/Vaping Use Never Used 02/06/25 10:57 Thrive Assessment: Date of Thrive Assessment Date Thrive assessed 11/21/24 02/06/25 10:57 Currently or been in a relationship where the following occur: No concerns reported Const Other: Pertinent findings are in BOLD GENERAL APPEARANCE NAD, activity normal for age, well developed/ well nourished, no cyanosis, pallor, or diaphoresis. EYES lids/conjunctiva normal. EARS/NOSE/THROAT Mucous membranes moist, nares normal, lips/teeth normal uvula midline without oral pharyngeal erythema, exudate or swelling TMs normal bilaterally. No lymphangitis/lymphedema. HEAD/NECK normocephalic atraumatic, no facial trauma, neck is supple. RESPIRATORY respiratory effort normal, speaks in full sentences, no tripod position, no accessory muscle use. Lungs clear to auscultation without rhonchi, wheezes, rales CARDIAC Regular rate and rhythm, no edema. ABDOMINAL Soft, ND/NT. No evidence of fluid wave. No pulsatile masses on exam, rebound tenderness, Olmedo sign or pain over Mcburney's point. MUSCLES/EXTREMITIES No abnormal range of motion, no swelling. SKIN Warm, pink and dry. No rashes, dermatoses, petechiae or lesions. NEUROLOGICAL Speech is clear and appropriate. Normal level of consciousness. Gait and coordination are normal. 5/5 strength in all extremities. PSYCH Normal mood and affect. Judgement/competence is appropriate Throat erythema, no exudate, no LN. Coding Level of Care Code Est Pt Level 3 (58039) Diagnoses Laryngitis J04.0 Time Spent (min) 20 Assessment & Plan Assessment & Plan (1) Laryngitis: Code(s): J04.0 - Acute laryngitis Category: Medical Plan: Doxycyxline 100 mg BID for 5 days. Strep swab in clinic. We will adjust treatment plan based on results. - Advised use of a humidifier or steam inhalation to alleviate symptoms. - Recommended rest and voice conservation. - Instructed to return if symptoms worsen or if severe symptoms develop. Plan I discussed with the patient the likely diagnosis of Laryngitis and the decision to prescribe doxycycline as a precautionary measure against bacterial infection. We talked about the importance of using a humidifier and resting her voice to aid recovery. I advised her to return if symptoms worsen or if she experiences severe symptoms such as difficulty swallowing or high fever. Orders: Orders AMB Rapid Strep Screen Today Z13.9 - Encounter for screening, unspecified Medications: New doxycycline hyclate 100 mg PO BID 10 caps 0RF
--- OUTSIDE RECORDS SUMMARY | 2025-02-06 12:21 | XMS_ITS | Clinical Summary ---
Author Organization [facility] it Address [address] [place] [address] Care Team Providers Care Weight Checker Name Role Phone Rommel Maldonado MD Primary Care Provider [phone] Surgical History Surgery Date Site/Laterality Comments OTHER [...] Smear 2014 Depression Screening 05/11/2024 COVID-19 Vaccine (1 - 2023-2 5 season) 2025 Influenza Vaccine [...] age to complete this topic Care Teams Weight Checker Relationship Specialty Start Date End Date Rommel Maldonado MD [address] [place] [address] [address] [place] [address] PCP - General Internal Medicine 08/10/20
== END 2025-02-06 11:15 | disposition home or self-care (01) ==
LOC: HO.HMCH 10:50
PROVIDERS: PCP Internal Medicine; Visit Provider Internal Medicine
DX: Z13.9 Encounter for screening, unspecified (principal); J04.0 Acute laryngitis

== ENCOUNTER → 2025-02-06 10:49 | Outpatient (BNVA) | payer OTHER, SELFPAY | PROVIDERS: PCP Internal Medicine; Visit Provider Internal Medicine | DX: J04.0 Acute laryngitis (principal); Z87.891 Personal history of nicotine dependence | CPT/HCPCS: 87880; 99212 ==